=== PATIENT | female | born 1970 | race Two or more races ===

== ENCOUNTER 2016-09-07 09:27 | Emergency (ER) | payer MEDICAID ==
--- NOTE | 2016-09-07 10:25 | EDM.PDOC ---
ED HPI GENERAL MEDICAL PROBLEM - General Chief Complaint: Genitourinary Problem Stated Complaint: SICK FOR A MONTH Time Seen by Provider: 09/07/16 10:13 Source of Information: Reports: Patient History Limitations: Reports: No limitations - History of Present Illness INITIAL COMMENTS - FREE TEXT/NARRATIVE: 46-year-old female reports to the ED indicating that she's not been feeling well for about a month. Nonspecific symptoms of fatigue. More recently over the last few days particularly she's had fever chills nausea lightheadedness headache and dysuria. She's had dysuria symptoms off and on for about a week. Associated right flank pain radiating down to the right groin which is relieved by voiding. There is no known history of kidney stones. Associated nausea without vomiting. Mild constipation which improved after taking laxatives yesterday. Appetite has been poor. Feels very lightheaded and weak. Yesterday she had to cover herself up and mostly more her parka this morning because of chills. Onset: gradual Onset Date: 08/31/16 Duration: Day(s): Location: Reports: generalized Quality: Reports: Ache, Other (Weakness) Severity: moderate Improves with: Reports: None Worsens with: Reports: None Context: Denies: Activity, Exercise, Lifting, Sick contact, Trauma, Other Associated Symptoms: Reports: cough, diaphoresis, fever/chills, headaches, loss of appetite, malaise, nausea/vomiting, weakness (Nausea without vomiting generalized). 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 (see below) (No) right flank/side Pain Score (Numeric/FACES): 6 - Related Data Allergies Allergy/AdvReac Type Severity Reaction Status Date / Time adalimumab [From Humira] Allergy Redness Verified 09/07/16 09:49 lactose Allergy Anaphylactic Verified 09/07/16 09:49 Shock homeopathic drugs Allergy hayfever Uncoded 09/07/16 09:49 ivp dye Allergy Rash Uncoded 09/07/16 09:49 Home Meds: Home Meds Etanercept [Enbrel] 25 mg SQ WEEKLY 09/07/16 [History] Levofloxacin [Levaquin] 500 mg PO Q24H #9 tablet 09/07/16 [Rx] Multivitamin [Multivitamins] 1 each PO DAILY 09/07/16 [History] Ranitidine HCl [Zantac] 150 mg PO DAILY 09/07/16 [History] Past Medical History - Past Health History Medical/Surgical History: Denies Medical/Surgical History HEENT History: Reports: Sinusitis Gastrointestinal History: Reports: GERD 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 History: Reports: 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 Musculoskeletal History: Reports: RA Neurological History: Reports: Seizure Psychiatric History: Reports: Depression Endocrine/Metabolic History: Reports: Other (see below) Other Endocrine/Metabolic History: 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 Immunologic History: Reports: Immunosuppression Other Immunologic History: enbrel use - Past Surgical History GI Surgical History: Reports: Cholecystectomy Female Surgical History: Reports: Other (see below) Other Female Surgeries/Procedures: UTI Social & Family History - Family History Family Medical History: Noncontributory - Tobacco Use Smoking Status *Q: Never Smoker Second Hand Smoke Exposure: No - Caffeine Use Caffeine Use: Reports: Tea - Alcohol Use Days Per Week of Alcohol Use: 0 - Recreational Drug Use Recreational Drug Use: No - Living Situation & Occupation Living situation: Reports: , with family (Son) Occupation: unemployed ED ROS GENERAL - Review of Systems Review Of Systems: See Below Constitutional: Reports: fever, chills, malaise, weakness, fatigue, decreased appetite. Denies: weight loss HEENT: Reports: Sinus problem Respiratory: Reports: Cough. Denies: Shortness of Breath (Chronic postnasal drip.), Wheezing, Pleuritic Chest Pain, Sputum, Hemoptysis, Other Cardiovascular: Reports: Lightheadedness. Denies: Chest pain, Blood pressure problem, Claudication, Dyspnea on exertion, Edema, Orthopnea, Palpitations, PND , Syncope, Other Endocrine: Reports: fatigue GI/Abdominal: Reports: Constipation, Nausea. Denies: Vomiting : Reports: dysuria, flank pain, frequency. Denies: incontinence, irregular menses, urgency Skin: Reports: no symptoms Neurological: Reports: No Symptoms Psychiatric: Reports: No symptoms Hematologic/Lymphatic: Reports: no symptoms Immunologic: Reports: no symptoms ED EXAM, GENERAL - Physical Exam Exam: See Below Exam Limited By: No limitations General Appearance: alert, WD/WN, no apparent distress, other (Afebrile time of initial exam.) Eye Exam: bilateral eye: normal inspection Ears: normal TMs Throat/Mouth: Normal inspection, Normal lips, Normal oropharynx Head: atraumatic, normocephalic Neck: normal inspection, supple, non-tender, full range of motion. No: lymphadenopathy (L), lymphadenopathy (R) Respiratory/Chest: no respiratory distress, lungs clear, normal breath sounds, no accessory muscle use Cardiovascular: normal peripheral pulses, regular rate, rhythm, no edema, no murmur Peripheral Pulses: 2+: radial (R), femoral (L), posterior tibial (L), posterior tibial (R), dorsalis pedis (L), dorsalis pedis (R) GI/Abdominal: normal bowel sounds, soft, non tender, no organomegaly, no distention Back Exam: full range of motion, CVA tenderness (R). No: CVA tenderness (L) ( Moderate) Extremities: normal inspection, normal range of motion, non-tender, no pedal edema, normal capillary refill Neurological: alert, oriented, CN II-XII intact, normal cognition, normal gait Psychiatric: normal affect, normal mood Skin Exam: Warm, Dry, Intact, Normal color, No rash Course - Vital Signs Last Recorded V/S: Last Vital Signs Temp 36.4 C 09/07/16 12:22 Pulse 79 09/07/16 12:22 Resp 18 09/07/16 12:22 BP 122/74 09/07/16 12:22 Pulse Ox 97 09/07/16 12:22 Orthostatic Blood Pressure [ 111/85 Standing] Orthostatic Blood Pressure [ 139/107 Sitting] Orthostatic Blood Pressure [ 122/79 Supine] - Orders/Labs/Meds Orders: Active Orders 24 hr Category Date Time Status CULTURE BLOOD [BC] Stat Lab 09/07/16 11:02 Received CULTURE BLOOD [BC] Stat Lab 09/07/16 11:02 Received CULTURE URINE [RM] Stat Lab 09/07/16 10:00 Received Blood Culture x2 Reflex Set [OM.PC] Stat Oth 09/07/16 10:27 Ordered Labs: Laboratory Tests 09/07/16 09/07/16 09/07/16 Range/Units 10:05 11:02 11:02 WBC 7.10 (3.98-10.04) K/mm3 RBC 4.55 (3.98-5.22) M/mm3 Hgb 13.0 (11.2-15.7) gm/L Hct 39.5 (34.1-44.9) % MCV 86.8 (79.4-94.8) fl MCH 28.6 (25.6-32.2) pg MCHC 32.9 (32.2-35.5) g/dl RDW Std Deviation 48.2 H (36.4-46.3) fL Plt Count 239 (182-369) K/mm3 MPV 9.7 (9.4-12.3) fl Neutrophils % (Manual) 75 H (40-60) % Band Neutrophils % 11 H (0-10) % Lymphocytes % (Manual) 7 L (20-40) % Atypical Lymphs % 0 % Monocytes % (Manual) 5 (2-10) % Eosinophils % (Manual) 2 (0.7-5.8) % Basophils % (Manual) 0 L (0.1-1.2) Platelet Estimate Adequate RBC Morph Comment Normal Sodium 140 (136-145) mEq/L Potassium 3.7 (3.5-5.1) mEq/L Chloride 107 (98-107) mEq/L Carbon Dioxide 24 (21-32) mEq/L Anion Gap 12.7 (5-15) BUN 8 (7-18) mg/dL Creatinine 0.7 (0.55-1.02) mg/dL Est Cr Clr Drug Dosing TNP Estimated GFR (MDRD) > 60 (>60) mL/min BUN/Creatinine Ratio 11.4 L (14-18) Glucose 162 H (74-106) mg/dL Calcium 8.3 L (8.5-10.1) mg/dL Total Bilirubin 0.6 (0.2-1.0) mg/dL AST 15 (15-37) U/L ALT 20 (14-59) U/L Alkaline Phosphatase 70 (46-116) U/L C-Reactive Protein 3.4 H* (<1.0) mg/dL Total Protein 6.9 (6.4-8.2) g/dl Albumin 2.9 L (3.4-5.0) g/dl Globulin 4.0 gm/dL Albumin/Globulin Ratio 0.7 L (1-2) Lipase 94 (73-393) U/L Urine Color Yellow (Yellow) Urine Appearance Cloudy H (Clear) Urine pH 7.0 (5.0-8.0) Ur Specific Gautier 1.015 (1.005-1.030) Urine Protein Negative (Negative) Urine Glucose (UA) Negative (Negative) Urine Ketones Negative (Negative) Urine Occult Blood 2+ H (Negative) Urine Nitrite Negative (Negative) Urine Bilirubin Negative (Negative) Urine Urobilinogen 0.2 (0.2-1.0) Ur Leukocyte Esterase 1+ H (Negative) Urine RBC 5-10 H (0-5) /hpf Urine WBC 5-10 H (0-5) /hpf Ur Epithelial Cells 0-5 (0-5) /hpf Urine Bacteria Few (FEW) /hpf Urine Mucus Few (FEW) /hpf Meds: Medications Discontinued Medications Generic Name Dose Route Start Last Admin Trade Name Kavita PRN Reason Stop Dose Admin Acetaminophen 975 mg 09/07/16 11:59 09/07/16 12:10 Tylenol PO 09/07/16 12:00 975 mg NOW ONE Administration Dextrose/Sodium Chloride 1,000 mls @ 999 mls/hr 09/07/16 10:30 09/07/16 11:34 Dextrose 5%-Normal Saline IV 300 mls/hr ASDIRECTED [facility] Infusion Ceftriaxone Sodium 1 gm/ 100 mls @ 200 mls/hr 09/07/16 11:23 09/07/16 11:34 Sodium Chloride IV 09/07/16 11:52 200 mls/hr ONETIME ONE Administration Ketorolac Tromethamine 30 mg 09/07/16 10:45 09/07/16 10:44 Toradol IVPUSH 30 mg ONETIME [place] Administration Levofloxacin 500 mg 09/07/16 12:00 09/07/16 12:10 Levaquin PO 09/07/16 12:01 500 mg ONETIME ONE Administration - Radiology Interpretation Free Text/Narrative:: 46-year-old female presents the ED for evaluation of primarily right flank pain rating into the right groin with associated dysuria urgency and frequency. She reports she has not felt well for over a month however. She is mildly orthostatic. No evidence of upper respiratory tract infection right costovertebral angle tenderness present on exam. Benign abdomen exam. Plan urinalysis CT abdomen pelvis per protocol. IV D5 normal saline at open. She is mildly immunocompromised due to to using medications for rheumatoid arthritis I believe adalimumab. We'll give Toradol 30 mg IV for relief of right flank pain. - Re-Assessments/Exams Free Text/Narrative Re-Assessment/Exam: 09/07/16 11:21 CT of the abdomen has been completed. Bases of the lungs appear normal. Liver spleen and pancreas appear normal. Gallbladder is absent. 1-2 mm calculus noted within the parenchyma of the right kidney. Right kidney and ureter do appear mildly prominent with no calcification seen along the course of the ureter. This is suspicious for your tightness or pyelonephritis. Left kidney is within normal limits. 2 small cysts patient within the left ovary. There is no renal calculi. No perinephric stranding on the right side suggest pyelonephritis. There is increased stool throughout the entire colon. Small bowel appears otherwise normal adrenal glands appear normal. Only the urinalysis is back and shows 2+ blood cells and 1+ leukocyte esterase 5-10 rbc' s 5-10 WBCs per high-power field. Because of her symptoms of dysuria ,urine culture will be ordered. Will give her Rocephin 1 g IV. 09/07/16 11:58 labs are back. They reveal a total white count of 7.10 with a left shift of 75% neutrophils 11% bands. Hemoglobin is 13.0 hematocrit is 39.5 platelets 239,000. Chemistry shows a sodium of 140 and a potassium of 3.7. Anion gap is 12.7. Glucose 162. Lipase normal at 94 creatinine and liver function normal CRP is elevated at 3.4. Clinically the patient does have a right pyelonephritis. Plan will be to complete a liter of IV fluids and the Rocephin 1 g IV and see how she is feeling. Will also give her Levaquin 500 milligrams by mouth. 09/07/16 12:20: Has completed liter of IV fluids and Rocephin 1 g IV. She'll be discharged to home on Levaquin 500 milligrams once daily for another 9 days. Continue Motrin 600 mg every 6 hours needed for fever and back pain relief. Expect marked improvement over the next 48-72 hours if not she is to return to the ED. Departure - Departure Time of Disposition: 13:21 Disposition: Home, Self-Care 01 Condition: fair Clinical Impression: Pyelonephritis Prescriptions: Levofloxacin [Levaquin] 500 mg PO Q24H #9 tablet Instructions: Pyelonephritis, Adult, [id number] Referrals: Shanique Kaufman NP [Primary Care Provider] - Forms: ED Department Discharge Additional Instructions: Evaluation in the next today in regards to fever chills nausea and generalized weakness that developed over the last week. Symptoms of urinary tract infection off and on for a week. Development of right flank pain radiating down to the right groin since yesterday or the day before. CT scan reveals a solitary 1-2 mm millimeters stone within the right kidney tissue nothing in the ureter obstructing the flow of urine to the bladder. The ureter itself is mildly swollen compatible with an infection involving the ureter and kidney. White count was normal but there is a shift to the left indicating a bacterial infection has occurred. Diagnosis is right kidney infection. You're treated with a liter of IV fluids to provide rehydration. Also first dose of Menest patient antibiotic Rocephin was given intravenously and oral tablet Levaquin 500 mg by mouth. We'll need to take Levaquin 500 mg daily about noon every day for the next 9 days. Plenty of fluids such as Gatorade or Powerade and return to normal diet as able. Of note she may want to start MiraLax powder 17 g daily since his CT which reveals a large amount of stool throughout the colon compatible with constipation. Suggest Motrin 600 mg every 6 hours needed for fever and back pain relief. Followup with personal care provider or return to the ED if any further problems occur. You should otherwise expect marked improvement in about 48-72 hours time. - My Orders Last 24 Hours: My Active Orders 09/07/16 10:00 CULTURE URINE [RM] Stat 09/07/16 10:27 Blood Culture x2 Reflex Set [OM.PC] Stat 09/07/16 11:02 CULTURE BLOOD [BC] Stat CULTURE BLOOD [BC] Stat - Assessment/Plan Last 24 Hours: My Active Orders 09/07/16 10:00 CULTURE URINE [RM] Stat 09/07/16 10:27 Blood Culture x2 Reflex Set [OM.PC] Stat 09/07/16 11:02 CULTURE BLOOD [BC] Stat CULTURE BLOOD [BC] Stat
[2016-09-07] MEDS ORDERED: Dextrose 5%-0.9% NaCl 1,000 ML IV SCH (10:30)
[2016-09-07] MEDS ORDERED: Ketorolac 30 MG/ML SDV IVPUSH SCH (10:45)
[2016-09-07] MEDS ORDERED: cefTRIAXone 1 GM in Sodium Chloride 0.9% 100 ML IV ONE (11:23)
--- NOTE | 2016-09-07 11:41 | CT ---
CT abdomen and pelvis Technique: Multiple axial sections were obtained from above the dome of the diaphragm inferiorly through the pubic symphysis. Intravenous and oral contrast was not utilized. Study has been performed as a ureteral stone protocol. Findings: Small nonobstructing calculus is noted within the mid right kidney measuring around 1-2 mm. No larger calcifications are seen. Right kidney and right ureter are minimally prominent with no abnormal calcifications seen along the course of the ureters. Visualized lung bases shows nothing acute. Noncontrast appearance of the liver and spleen appear within normal limits. Adrenal glands show no nodule. Pancreas appears within normal limits. Surgical clips are seen from prior cholecystectomy. Aorta shows no aneurysmal dilatation. No retroperitoneal adenopathy is seen. Appendix appears within normal limits. 2 small cysts noted within the left ovary. Largest cyst measures approximately 2.9 cm. These are felt to be incidental. No pelvic mass or adenopathy is seen. No inflammatory change or free fluid is seen. Mild increased stool noted throughout the colon. Bone window settings were reviewed which appear within normal limits for the patient's age. Impression: 1. Several small nonobstructing calculi within the right kidney. 2. Slightly prominent collecting system within the right kidney as well as minimally prominent right ureter. No obstructing ureteral calculi are seen. The slightly prominent collecting system and ureter can be seen from UTI/pyelonephritis. 3. Other incidental findings as described above. Diagnostic code #3
[2016-09-07] MEDS ORDERED: Acetaminophen 325 MG Tab PO ONE (11:59)
[2016-09-07] MEDS ORDERED: Levofloxacin 250 MG Tab PO ONE (12:00)
[2016-09-07 12:23] VITALS: BP 122/74
== END 2016-09-07 12:30 | disposition home or self-care (01) ==
LOC: JD.ED 09:27
DX: N12 Tubulo-interstitial nephritis, not specified as acute or chronic (principal); K21.9 Gastro-esophageal reflux disease without esophagitis; F32.9 Major depressive disorder, single episode, unspecified; Z90.49 Acquired absence of other specified parts of digestive tract; Z79.899 Other long term (current) drug therapy; Z88.8 Allergy status to other drugs, medicaments and biological substances; Z91.041 Radiographic dye allergy status
CPT/HCPCS: 36415; 74176; 80053; 81001; 83690; 85025; 86140; 87040; 87086; 96361; 96365; 96375; 99284; A9270; J0696; J1885; J7030; J7042

== ENCOUNTER 2016-09-24 16:16 | Emergency (ER) | payer MEDICAID ==
[2016-09-24 16:40] VITALS: BP 133/96
[2016-09-24] MEDS ORDERED: HYDROmorphone 0.5 MG/0.5 ML Syringe IVPUSH ONE (17:10)
[2016-09-24] MEDS ORDERED: Sodium Chloride 0.9% 1,000 ML IV ONE (17:10)
[2016-09-24] MEDS ORDERED: Ketorolac 30 MG/ML SDV IVPUSH ONE (17:10)
--- NOTE | 2016-09-24 17:27 | EDM.PDOC ---
ED HPI GENERAL MEDICAL PROBLEM - General Chief Complaint: Abdominal Pain Stated Complaint: Flank pain Time Seen by Provider: 09/24/16 17:00 Source of Information: Reports: Patient, RN Notes Reviewed History Limitations: Reports: No Limitations - History of Present Illness INITIAL COMMENTS - FREE TEXT/NARRATIVE: 46 year old female presents to the ED with complaints of right flank pain, dysuria, frequency, fatigue, and chills. She says she has not felt well for quite some time. She says she was diagnosed with a kidney stone earlier this month by Dr. Diaz. She is asking "for help passing the stone." She says the pain became worse after intercourse. She is not on any forms of control. She still has periods which she says are quite uncomfortable for her. She reports a history of endometriosis. She saw her PCP Barb Kaufman in the clinic and was prescribed Flomax which she says isn't helping. She was also prescribed Percocet but took her last two percocet today. She was also diagnosed with constipation at her last visit. She says she followed her discharge instructions and is now having regular, daily bowel movements. Reports nausea but no vomiting. She reports a syncopal episode today and that she hasn't been drinking much fluids today. She also has a history of rheumatoid arthritis and is on immunologic therapy. Right Flank Pain Score (Numeric/FACES): 10 - Related Data Allergies Allergy/AdvReac Type Severity Reaction Status Date / Time adalimumab [From Humira] Allergy Redness Verified 09/07/16 09:49 lactose Allergy Anaphylactic Verified 09/07/16 09:49 Shock homeopathic drugs Allergy hayfever Uncoded 09/07/16 09:49 ivp dye Allergy Rash Uncoded 09/07/16 09:49 Home Meds: Home Meds Etanercept [Enbrel] 25 mg SQ WEEKLY 09/07/16 [History] Multivitamin [Multivitamins] 1 each PO DAILY 09/07/16 [History] Ranitidine HCl [Zantac] 150 mg PO DAILY 09/07/16 [History] Past Medical History - Past Health History Medical/Surgical History: Denies Medical/Surgical History HEENT History: Reports: Sinusitis Gastrointestinal History: Reports: GERD Genitourinary History: Reports: Other (See Below) Other Genitourinary History: kidney stones 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 Musculoskeletal History: Reports: RA Neurological History: Reports: Seizure Psychiatric History: Reports: Depression Endocrine/Metabolic History: Reports: Other (See Below) Other Endocrine/Metabolic History: 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 Immunologic History: Reports: Immunosuppression Other Immunologic History: enbrel use - Past Surgical History GI Surgical History: Reports: Cholecystectomy Social & Family History - Family History Family Medical History: Noncontributory - Tobacco Use Smoking Status *Q: Never Smoker Second Hand Smoke Exposure: No - Caffeine Use Caffeine Use: Reports: None - Alcohol Use Days Per Week of Alcohol Use: 0 - Recreational Drug Use Recreational Drug Use: No - Living Situation & Occupation Living situation: Reports: , with Family Occupation: Unemployed ED ROS GENERAL - Review of Systems Review Of Systems: See Below Constitutional: Reports: Chills, Fatigue Respiratory: Reports: No Symptoms. Denies: Shortness of Breath Cardiovascular: Reports: No Symptoms. Denies: Chest Pain GI/Abdominal: Reports: Nausea. Denies: Abdominal Pain, Constipation, Vomiting : Reports: Dysuria, Flank Pain, Frequency ED EXAM, RENAL/ - Physical Exam Exam: See Below Exam Limited By: No Limitations General Appearance: Alert, WD/WN, No Apparent Distress Respiratory/Chest: No Respiratory Distress, Lungs Clear, Normal Breath Sounds Cardiovascular: Regular Rate, Rhythm GI/Abdominal: Normal Bowel Sounds, Soft, Non-Tender, No Distention. No: Guarding, Rigid, Rebound Back Exam: Normal Inspection, Full Range of Motion, CVA Tenderness (R). No: CVA Tenderness (L) Neurological: Alert, Normal Cognition Skin Exam: Warm, Dry, Intact Course - Vital Signs Last Recorded V/S: Last Vital Signs Temp 97.6 F 09/24/16 16:32 Pulse 80 09/24/16 16:32 Resp 20 09/24/16 16:32 BP 133/96 H 09/24/16 16:32 Pulse Ox 98 09/24/16 16:32 Orthostatic Blood Pressure [ 144/92 Standing] Orthostatic Blood Pressure [ 138/96 Sitting] Orthostatic Blood Pressure [ 129/90 Supine] - Orders/Labs/Meds Orders: Active Orders 24 hr Category Date Time Status Orthostatic Vital Signs [RC] ASDIRECTED Care 09/24/16 17:10 Active Labs: Laboratory Tests 09/24/16 09/24/16 09/24/16 Range/Units 16:40 16:40 17:12 WBC 4.23 (3.98-10.04) K/mm3 RBC 5.12 (3.98-5.22) M/mm3 Hgb 14.8 (11.2-15.7) gm/L Hct 44.3 (34.1-44.9) % MCV 86.5 (79.4-94.8) fl MCH 28.9 (25.6-32.2) pg MCHC 33.4 (32.2-35.5) g/dl RDW Std Deviation 46.1 (36.4-46.3) fL Plt Count 269 (182-369) K/mm3 MPV 9.9 (9.4-12.3) fl Neutrophils % (Manual) 68 H (40-60) % Band Neutrophils % 0 (0-10) % Lymphocytes % (Manual) 18 L (20-40) % Atypical Lymphs % 2 % Monocytes % (Manual) 10 (2-10) % Eosinophils % (Manual) 1 (0.7-5.8) % Basophils % (Manual) 1 (0.1-1.2) Platelet Estimate Adequate Plt Morphology Comment Normal Poikilocytosis 1+ slight Anisocytosis 1+ slight Microcytosis 1+ slight Macrocytosis 1+ slight Ovalocytes 1+ slight RBC Morph Comment Abnormal Sodium 141 (136-145) mEq/L Potassium 4.0 (3.5-5.1) mEq/L Chloride 106 (98-107) mEq/L Carbon Dioxide 27 (21-32) mEq/L Anion Gap 12.0 (5-15) BUN 12 (7-18) mg/dL Creatinine 0.8 (0.55-1.02) mg/dL Est Cr Clr Drug Dosing TNP Estimated GFR (MDRD) > 60 (>60) mL/min BUN/Creatinine Ratio 15.0 (14-18) Glucose 114 H (74-106) mg/dL Calcium 9.3 (8.5-10.1) mg/dL Total Bilirubin 0.4 (0.2-1.0) mg/dL AST 16 (15-37) U/L ALT 21 (14-59) U/L Alkaline Phosphatase 93 (46-116) U/L Total Protein 8.1 (6.4-8.2) g/dl Albumin 3.4 (3.4-5.0) g/dl Globulin 4.7 gm/dL Albumin/Globulin Ratio 0.7 L (1-2) Urine Color (Yellow) Urine Appearance (Clear) Urine pH (5.0-8.0) Ur Specific [place] (1.005-1.030) Urine Protein (Negative) Urine Glucose (UA) (Negative) Urine Ketones (Negative) Urine Occult Blood (Negative) Urine Nitrite (Negative) Urine Bilirubin (Negative) Urine Urobilinogen (0.2-1.0) Ur Leukocyte Esterase (Negative) Urine RBC (0-5) /hpf Urine WBC (0-5) /hpf Ur Epithelial Cells (0-5) /hpf Amorphous Sediment (NOT SEEN) /hpf Urine Bacteria (FEW) /hpf Urine Mucus (FEW) /hpf Urine HCG, Qual Negative (NEGATIVE) 09/24/16 Range/Units 17:12 WBC (3.98-10.04) K/mm3 RBC (3.98-5.22) M/mm3 Hgb (11.2-15.7) gm/L Hct (34.1-44.9) % MCV (79.4-94.8) fl MCH (25.6-32.2) pg MCHC (32.2-35.5) g/dl RDW Std Deviation (36.4-46.3) fL Plt Count (182-369) K/mm3 MPV (9.4-12.3) fl Neutrophils % (Manual) (40-60) % Band Neutrophils % (0-10) % Lymphocytes % (Manual) (20-40) % Atypical Lymphs % % Monocytes % (Manual) (2-10) % Eosinophils % (Manual) (0.7-5.8) % Basophils % (Manual) (0.1-1.2) Platelet Estimate Plt Morphology Comment Poikilocytosis Anisocytosis Microcytosis Macrocytosis Ovalocytes RBC Morph Comment Sodium (136-145) mEq/L Potassium (3.5-5.1) mEq/L Chloride (98-107) mEq/L Carbon Dioxide (21-32) mEq/L Anion Gap (5-15) BUN (7-18) mg/dL Creatinine (0.55-1.02) mg/dL Est Cr Clr Drug Dosing Estimated GFR (MDRD) (>60) mL/min BUN/Creatinine Ratio (14-18) Glucose (74-106) mg/dL Calcium (8.5-10.1) mg/dL Total Bilirubin (0.2-1.0) mg/dL AST (15-37) U/L ALT (14-59) U/L Alkaline Phosphatase (46-116) U/L Total Protein (6.4-8.2) g/dl Albumin (3.4-5.0) g/dl Globulin gm/dL Albumin/Globulin Ratio (1-2) Urine Color Yellow (Yellow) Urine Appearance Slt cloudy H (Clear) Urine pH 7.0 (5.0-8.0) Ur Specific [place] 1.020 (1.005-1.030) Urine Protein Negative (Negative) Urine Glucose (UA) Negative (Negative) Urine Ketones Negative (Negative) Urine Occult Blood Negative (Negative) Urine Nitrite Negative (Negative) Urine Bilirubin Negative (Negative) Urine Urobilinogen 0.2 (0.2-1.0) Ur Leukocyte Esterase Negative (Negative) Urine RBC 0-5 (0-5) /hpf Urine WBC 0-5 (0-5) /hpf Ur Epithelial Cells 0-5 (0-5) /hpf Amorphous Sediment Many H (NOT SEEN) /hpf Urine Bacteria Few (FEW) /hpf Urine Mucus Many H (FEW) /hpf Urine HCG, Qual (NEGATIVE) Meds: Medications Discontinued Medications Generic Name Dose Route Start Last Admin Trade Name Freq PRN Reason Stop Dose Admin Hydromorphone HCl 0.5 mg 09/24/16 17:10 09/24/16 17:23 Dilaudid IVPUSH 09/24/16 17:11 0.5 mg ONETIME ONE Administration Sodium Chloride 1,000 mls @ 999 mls/hr 09/24/16 17:10 09/24/16 17:22 Normal Saline IV 09/24/16 18:10 999 mls/hr ONETIME ONE Administration Ketorolac Tromethamine 30 mg 09/24/16 17:10 09/24/16 17:23 Toradol IVPUSH 09/24/16 17:11 30 mg ONETIME ONE Administration Magnesium Citrate 300 ml 09/24/16 19:20 09/24/16 19:30 Citrate Of Magnesia PO 09/24/16 19:21 296 ml ONETIME ONE Administration - Re-Assessments/Exams Free Text/Narrative Re-Assessment/Exam: Reviewed chart fromher last ED visit on 09/07/16. She was diagnosed with pyelonephritis. She had only non-obstructing stones on CT. Her urine culture came back indicating contamination. Will collect quick cath UA today to avoid repeat contamination. She took her prescription of Levaquin as prescribed. She was prescribed Flomax 0.4mg PO daily by her PCP for kidney stones. This likely explains the patient's lightheadedness. CBC, CMP, and UA were normal. Repeat CT with renal stone protocol was negative. No hydronephrosis or stone with the ureter. Her appendix was visualized and is reportedly normal. She has a large amount of stool throughout her colon. This explains her colicky type pain. On history she reports daily bowel movements. She is likely still constipated due to the pain medication. Will give her 1 bottle of magnesium citrate and have her continue Miralax BID. Departure - Departure Time of Disposition: 19:41 Disposition: Home, Self-Care 01 Condition: good Clinical Impression: Constipation Qualifiers: Constipation type: unspecified constipation type Qualified Code(s): K59.00 - Constipation, unspecified - Discharge Information Referrals: Shanique Kaufman NP [Primary Care Provider] - Forms: ED Department Discharge Additional Instructions: Miralax 1 capful twice a day until bowels are regular Then once daily there after Increase fiber in your diet with fruits, vegetables and whole grains Stop the tamsulosin, this is not needed since you are not passing a kidney stone Drink at least 80 oz of water per day Follow-up with Barb Kaufman NP next week for recheck - My Orders Last 24 Hours: My Active Orders 09/24/16 17:10 Orthostatic Vital Signs [RC] ASDIRECTED - Assessment/Plan Last 24 Hours: My Active Orders 09/24/16 17:10 Orthostatic Vital Signs [RC] ASDIRECTED
--- NOTE | 2016-09-24 19:07 | CT ---
CT abdomen and pelvis Technique: Multiple axial sections were obtained from above the dome of the diaphragm inferiorly through the pubic symphysis. Intravenous and oral contrast not utilized. Study has been performed as a CT ureteral stone protocol. Comparison: Previous CT exam of 09/07/16. Findings: Minimal nonobstructing stone measuring about 1-1.5 mm is seen within the mid to inferior right kidney. Several other even smaller calcifications are seen within the lower right kidney. Left kidney shows minimal calcification inferiorly. No ureteral dilatation is seen. No abnormal calcifications are seen along the course of the ureters. Visualized lung bases shows nothing acute. Noncontrast appearance of the liver and spleen appear within normal limits. Surgical clips are noted from prior cholecystectomy. Pancreas appears within normal limits. Aorta shows no aneurysmal dilatation. Appendix is seen which is normal. Small fat-containing umbilical hernia is seen. No pelvic mass or adenopathy is seen. No inflammatory change or free fluid is seen. Mild increased stool is noted throughout the colon. Bone window settings were reviewed which appear within normal limits for the patient's age. Impression: 1. Slight increased stool within the colon. 2. Several nonobstructing small calculi noted within both kidneys. No ureteral calcifications or ureteral dilatation is seen. 3. Other incidental findings. Diagnostic code #2
[2016-09-24] MEDS ORDERED: Magnesium Citrate Solution 296 ML Bottle PO ONE (19:20)
== END 2016-09-24 19:50 | disposition home or self-care (01) ==
LOC: JD.ED 16:16
DX: K59.00 Constipation, unspecified (principal); K21.9 Gastro-esophageal reflux disease without esophagitis; Z79.899 Other long term (current) drug therapy; Z91.041 Radiographic dye allergy status; Z90.49 Acquired absence of other specified parts of digestive tract
CPT/HCPCS: 36415; 74176; 80053; 81001; 81025; 85025; 96361; 96374; 96375; 99284; A9270; J1170; J1885; J7040; P9612

== ENCOUNTER 2017-01-10 09:59 | Emergency (ER) | payer MEDICAID ==
[2017-01-10] MEDS ORDERED: Sodium Chloride 0.9% 10 ML Syringe FLUSH PRN (10:52)
[2017-01-10] MEDS ORDERED: Sodium Chloride 0.9% 1,000 ML IV ONE (10:52)
--- NOTE | 2017-01-10 11:03 | EDM.PDOC ---
ED HPI GENERAL MEDICAL PROBLEM - General Chief Complaint: Abdominal Pain Stated Complaint: RECTAL BLEEDING FOR 4 DAYS Time Seen by Provider: 01/10/17 10:53 Source of Information: Reports: Patient History Limitations: Reports: No Limitations - History of Present Illness INITIAL COMMENTS - FREE TEXT/NARRATIVE: 46-year-old female presents for evaluation treatment of abdominal pain and rectal bleeding. Patient reports she has been experiencing rectal bleeding for the last 4 days. She has a history of chronic colitis. Not on any medications for this but is being managed with diet. She reports that she know she cannot eat jalapenos and states that she had some jalapenos this week in which she attributes to her current flareup. initally thought this was vaginal bleeding but states that her menstrual cycle ended on Sunday. She reports bright red blood per rectum. States that she has having to change her pads frequently and saturating pads due to the bleeding. She reports associated symptoms of chills, nausea and weakness. Reports abdominal discomfort greatest on the right flank but is located throughout her entire abdomen. She describes as a cramping sharp pain. Reports that she has had some diarrhea but she is also currently on Augmentin for urinary tract infection. This was started on of last week. She states that she has not had any bowel movements today. No fevers, vomiting, lightheadedness or dizziness. Past medical history of chronic colitis and hemorrhoids. Currently sees Dr. Aguirre [facility]. Has not seen him in the last 3 years. Was previously seen a GI specialist in [place]. She has a family history of Crohn's disease. Reports that her last colonoscopy was about 1 year ago and was "clear ". Has a past medical history of endometriosis. 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 Primary care provider is Barb Kaufman. Right Abdominal Pain Score (Numeric/FACES): 10 - Related Data Allergies Allergy/AdvReac Type Severity Reaction Status Date / Time Iodinated Contrast- Oral and Allergy Mild Rash Verified 09/25/16 05:51 IV Dye [Iodinated Contrast Media - Oral and] adalimumab [From Humira] Allergy Redness Verified 09/07/16 09:49 lactose Allergy Anaphylactic Verified 09/07/16 09:49 Shock homeopathic drugs Allergy hayfever Uncoded 09/07/16 09:49 Home Meds: Home Meds Etanercept [Enbrel] 25 mg SQ WEEKLY 05/04/17 [History] Multivitamin [Multivitamins] 1 each PO DAILY 09/07/16 [History] Ranitidine HCl [Zantac] 150 mg PO DAILY 09/07/16 [History] Acetaminophen/oxyCODONE [Percocet 325-5 MG] 1 tab PO Q6H PRN #12 tablet [Rx] Past Medical History - Past Health History Medical/Surgical History: Denies Medical/Surgical History HEENT History: Reports: Sinusitis Gastrointestinal History: Reports: GERD, Other (See Below) Other Gastrointestinal History: colitis Genitourinary History: Reports: Other (See Below) Other Genitourinary History: kidney stones [employer]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 Musculoskeletal History: Reports: RA Neurological History: Reports: Seizure Psychiatric History: Reports: Depression Endocrine/Metabolic History: Reports: Other (See Below) Other Endocrine/Metabolic History: 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 Immunologic History: Reports: Immunosuppression Other Immunologic History: enbrel use - Past Surgical History GI Surgical History: Reports: Cholecystectomy Social & Family History - Family History Family Medical History: Noncontributory - Tobacco Use Smoking Status *Q: Never Smoker Second Hand Smoke Exposure: No - Caffeine Use Caffeine Use: Reports: Coffee - Alcohol Use Days Per Week of Alcohol Use: 0 - Recreational Drug Use Recreational Drug Use: No - Living Situation & Occupation Living situation: Reports: , with Family Occupation: Unemployed ED ROS GENERAL - Review of Systems Review Of Systems: See Below Constitutional: Reports: Chills, Fatigue. Denies: Fever, Decreased Appetite Cardiovascular: Denies: Lightheadedness GI/Abdominal: Reports: Abdominal Pain, Hematochezia, Nausea. Denies: Diarrhea ( yesterday, currently on augmentin; no bowel movements today), Vomiting : Reports: Other (Dx with a UTI on ) Neurological: Denies: Dizziness ED EXAM, GI/ABD - Physical Exam Exam: See Below Exam Limited By: No Limitations General Appearance: Alert, WD/WN, No Apparent Distress Ears: Normal External Exam Nose: Normal Inspection Throat/Mouth: Normal Inspection, Normal Voice, No Airway Compromise Respiratory/Chest: No Respiratory Distress, Lungs Clear, Normal Breath Sounds Cardiovascular: Normal Peripheral Pulses, Regular Rate, Rhythm, No Murmur GI/Abdominal Exam: Normal Bowel Sounds, Soft, Tender (RUQ). No: Distended, Rebound (Female) Exam: Normal External Exam, Vaginal Bleeding Rectal (Female) Exam: Normal Exam, Heme + Stool (likely from the vaginal bleeding ). No: Hemorrhoids Neurological: Alert, Oriented, Normal Cognition Psychiatric: Normal Affect, Normal Mood Skin Exam: Warm, Dry, Normal Color Course - Vital Signs Last Recorded V/S: Last Vital Signs Temp 36.4 C 01/10/17 10:05 Pulse 74 01/10/17 12:50 Resp 18 01/10/17 12:50 BP 156/86 H 01/10/17 12:50 Pulse Ox 100 01/10/17 12:50 - Orders/Labs/Meds Labs: Laboratory Tests 01/10/17 01/10/17 01/10/17 Range/Units 11:00 11:00 11:00 WBC 6.28 (3.98-10.04) K/mm3 RBC 4.53 (3.98-5.22) M/mm3 Hgb 13.1 (11.2-15.7) gm/L Hct 39.3 (34.1-44.9) % MCV 86.8 (79.4-94.8) fl MCH 28.9 (25.6-32.2) pg MCHC 33.3 (32.2-35.5) g/dl RDW Std Deviation 50.4 H (36.4-46.3) fL Plt Count 259 (182-369) K/mm3 MPV 9.3 L (9.4-12.3) fl Neutrophils % (Manual) 71 H (40-60) % Band Neutrophils % 1 (0-10) % Lymphocytes % (Manual) 21 (20-40) % Atypical Lymphs % 0 % Monocytes % (Manual) 7 (2-10) % Eosinophils % (Manual) 0 L (0.7-5.8) % Basophils % (Manual) 0 L (0.1-1.2) Platelet Estimate Adequate RBC Morph Comment Normal Sodium 142 (136-145) mEq/L Potassium 3.5 (3.5-5.1) mEq/L Chloride 109 H (98-107) mEq/L Carbon Dioxide 24 (21-32) mEq/L Anion Gap 12.5 (5-15) BUN 12 (7-18) mg/dL Creatinine 0.8 (0.55-1.02) mg/dL Est Cr Clr Drug Dosing TNP Estimated GFR (MDRD) > 60 (>60) mL/min BUN/Creatinine Ratio 15.0 (14-18) Glucose 101 (74-106) mg/dL Calcium 8.8 (8.5-10.1) mg/dL Total Bilirubin 0.5 (0.2-1.0) mg/dL AST 14 L (15-37) U/L ALT 18 (14-59) U/L Alkaline Phosphatase 62 (46-116) U/L C-Reactive Protein 2.2 H* (<1.0) mg/dL Total Protein 7.1 (6.4-8.2) g/dl Albumin 3.2 L (3.4-5.0) g/dl Globulin 3.9 gm/dL Albumin/Globulin Ratio 0.8 L (1-2) Lipase 126 (73-393) U/L Urine Color (Yellow) Urine Appearance (Clear) Urine pH (5.0-8.0) Ur Specific [place] (1.005-1.030) Urine Protein (Negative) Urine Glucose (UA) (Negative) Urine Ketones (Negative) Urine Occult Blood (Negative) Urine Nitrite (Negative) Urine Bilirubin (Negative) Urine Urobilinogen (0.2-1.0) Ur Leukocyte Esterase (Negative) 01/10/17 Range/Units 11:35 WBC (3.98-10.04) K/mm3 RBC (3.98-5.22) M/mm3 Hgb (11.2-15.7) gm/L Hct (34.1-44.9) % MCV (79.4-94.8) fl MCH (25.6-32.2) pg MCHC (32.2-35.5) g/dl RDW Std Deviation (36.4-46.3) fL Plt Count (182-369) K/mm3 MPV (9.4-12.3) fl Neutrophils % (Manual) (40-60) % Band Neutrophils % (0-10) % Lymphocytes % (Manual) (20-40) % Atypical Lymphs % % Monocytes % (Manual) (2-10) % Eosinophils % (Manual) (0.7-5.8) % Basophils % (Manual) (0.1-1.2) Platelet Estimate RBC Morph Comment Sodium (136-145) mEq/L Potassium (3.5-5.1) mEq/L Chloride (98-107) mEq/L Carbon Dioxide (21-32) mEq/L Anion Gap (5-15) BUN (7-18) mg/dL Creatinine (0.55-1.02) mg/dL Est Cr Clr Drug Dosing Estimated GFR (MDRD) (>60) mL/min BUN/Creatinine Ratio (14-18) Glucose (74-106) mg/dL Calcium (8.5-10.1) mg/dL Total Bilirubin (0.2-1.0) mg/dL AST (15-37) U/L ALT (14-59) U/L Alkaline Phosphatase (46-116) U/L C-Reactive Protein (<1.0) mg/dL Total Protein (6.4-8.2) g/dl Albumin (3.4-5.0) g/dl Globulin gm/dL Albumin/Globulin Ratio (1-2) Lipase (73-393) U/L Urine Color Yellow (Yellow) Urine Appearance Clear (Clear) Urine pH 7.0 (5.0-8.0) Ur Specific [place] 1.015 (1.005-1.030) Urine Protein Negative (Negative) Urine Glucose (UA) Negative (Negative) Urine Ketones Negative (Negative) Urine Occult Blood 3+ H (Negative) Urine Nitrite Negative (Negative) Urine Bilirubin Negative (Negative) Urine Urobilinogen 0.2 (0.2-1.0) Ur Leukocyte Esterase Negative (Negative) Meds: Medications Discontinued Medications Generic Name Dose Route Start Last Admin Trade Name Kavita PRN Reason Stop Dose Admin Sodium Chloride 1,000 mls @ 999 mls/hr 01/10/17 10:52 01/10/17 11:10 Normal Saline IV 01/10/17 11:52 999 mls/hr ONETIME ONE Administration Ketorolac Tromethamine 30 mg 01/10/17 12:14 01/10/17 12:25 Toradol IVPUSH 01/10/17 12:15 30 mg ONETIME ONE Administration Ondansetron HCl 4 mg 01/10/17 12:14 01/10/17 12:23 Zofran IVPUSH 01/10/17 12:15 4 mg ONETIME ONE Administration Sodium Chloride 10 ml 01/10/17 10:52 01/10/17 11:00 Saline Flush FLUSH 10 ml ASDIRECTED PRN Administration Keep Vein Open - Re-Assessments/Exams Free Text/Narrative Re-Assessment/Exam: 01/10/17 12:20 I Reviewed the labs with the patient. Vaginal bleeding likely from endometrosis or menstrual cycle. Abdominal pain likely from endometrosis or colitis. I will have her follow up with [employer] for further discussion of the vaginal bleeding. Discharge instructions as documented. Departure - Departure Time of Disposition: 12:30 Disposition: Home, Self-Care 01 Clinical Impression: Vaginal bleeding, 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 - Discharge Information Prescriptions: Acetaminophen/oxyCODONE [Percocet 325-5 MG] 1 tab PO Q6H PRN #12 tablet PRN Reason: Pain Instructions: 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, Dysfunctional Uterine Bleeding Referrals: Shanique Kaufman NP [Primary Care Provider] - John Gorman MD [Physician] - Forms: ED Department Discharge Additional Instructions: [id number] Tylenol or Motrin as needed for pain relief. For pain not controlled by Tylenol or Motrin, you may take Percocet 1 tab every 4-6 hours as needed for severe pain. Do not drive or operate machinery within 12 hours of taking Percocet. Percocet can be habit-forming, I recommend you take as few of these as needed to control your pain. Follow up with your [employer] provider as soon as able to. If you are unable to see Dr. Gorman, recommend Dr. huang or Dr. Gerard. Please call [phone] to schedule with one of these providers. Please return to the ER if your symptoms change or worsen.
[2017-01-10] MEDS ORDERED: Ondansetron 4 MG/2 ML SDV IVPUSH ONE (12:14)
[2017-01-10] MEDS ORDERED: Ketorolac 30 MG/ML SDV IVPUSH ONE (12:14)
[2017-01-10 13:05] VITALS: BP 156/86
== END 2017-01-10 13:00 | disposition home or self-care (01) ==
LOC: JD.ED 09:59
DX: N93.9 Abnormal uterine and vaginal bleeding, unspecified (principal); N80.9 Endometriosis, unspecified; K21.9 Gastro-esophageal reflux disease without esophagitis; F32.9 Major depressive disorder, single episode, unspecified; Z90.49 Acquired absence of other specified parts of digestive tract; Z79.899 Other long term (current) drug therapy; Z88.8 Allergy status to other drugs, medicaments and biological substances; Z91.041 Radiographic dye allergy status
CPT/HCPCS: 36415; 80053; 81003; 83690; 85025; 86140; 96361; 96374; 96375; 99284; J1885; J2405; J7040; J7050

== ENCOUNTER 2017-03-09 14:25 | Emergency (ER) | payer MEDICAID ==
[2017-03-09 14:56] VITALS: BP 141/99
[2017-03-09] MEDS ORDERED: Ondansetron 4 MG Tab.DIS PO ONE (15:12)
[2017-03-09] MEDS ORDERED: Ketorolac 30 MG/ML SDV IM ONE (15:12)
--- NOTE | 2017-03-09 15:19 | EDM.PDOC ---
ED HPI GENERAL MEDICAL PROBLEM - General Chief Complaint: Respiratory Problem Stated Complaint: SORE THROAT AND LIGHT HEADED Time Seen by Provider: 03/09/17 15:00 Source of Information: Reports: Patient History Limitations: Reports: No Limitations - History of Present Illness INITIAL COMMENTS - FREE TEXT/NARRATIVE: 46 year old female presents for evaluation and treatment of a sore throat, dizziness, headache, productive cough and nausea. Patient reports that the symptoms first started about 5 days ago with a sore throat. She reports last night she had a significant headache and nausea. She tried some Excedrin and Benadryl. Reports that she is eating drinking okay. States that she has dizziness that improves when she rests. Reports that she has some postnasal drip. Reports that she is coughing up some phlegm. Denies any fevers, neck pain , vomiting or ear pain. Patient has a past medical history of Crohn's disease. She denies any recent diarrhea or any recent blood in her stool. 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 States that there have been cases of strep throat at work. Throat Pain Score (Numeric/FACES): 5 - Related Data Allergies Allergy/AdvReac Type Severity Reaction Status Date / Time Iodinated Contrast- Oral and Allergy Mild Rash Verified 03/09/17 14:56 IV Dye [Iodinated Contrast Media - Oral and] adalimumab [From Humira] Allergy Redness Verified 03/09/17 14:56 lactose Allergy Anaphylactic Verified 03/09/17 14:56 Shock homeopathic drugs Allergy hayfever Uncoded 03/09/17 14:56 Home Meds: Home Meds Etanercept [Enbrel] 25 mg SQ WEEKLY 09/07/16 [History] Multivitamin [Multivitamins] 1 each PO DAILY 09/07/16 [History] Ranitidine HCl [Zantac] 150 mg PO DAILY 09/07/16 [History] Doxycycline [Vibramycin] 100 mg PO Q12HR #20 cap 03/09/17 [Rx] Methotrexate 8 tab PO ASDIRECTED 03/09/17 [History] Past Medical History - Past Health History Medical/Surgical History: Denies Medical/Surgical History HEENT History: Reports: Sinusitis Gastrointestinal History: Reports: GERD, Other (See Below) Other Gastrointestinal History: colitis Genitourinary History: Reports: Other (See Below) Other Genitourinary History: kidney stones 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 Musculoskeletal History: Reports: RA Neurological History: Reports: Seizure Psychiatric History: Reports: Depression Endocrine/Metabolic History: Reports: Other (See Below) Other Endocrine/Metabolic History: 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 Immunologic History: Reports: Immunosuppression Other Immunologic History: enbrel use - Past Surgical History GI Surgical History: Reports: Cholecystectomy Social & Family History - Family History Family Medical History: Noncontributory - Tobacco Use Smoking Status *Q: Never Smoker Second Hand Smoke Exposure: No - Caffeine Use Caffeine Use: Reports: Other - Alcohol Use Days Per Week of Alcohol Use: 0 - Recreational Drug Use Recreational Drug Use: No - Living Situation & Occupation Living situation: Reports: , with Family Occupation: Unemployed ED ROS GENERAL - Review of Systems Review Of Systems: See Below Constitutional: Denies: Fever HEENT: Reports: Sinus Problem, Throat Pain. Denies: Ear Pain Respiratory: Reports: Cough, Sputum GI/Abdominal: Reports: Nausea. Denies: Diarrhea, Hematochezia, Melena, Vomiting Musculoskeletal: Denies: Neck Pain Neurological: Reports: Dizziness, Headache ED EXAM, GENERAL - Physical Exam Exam: See Below Exam Limited By: No Limitations General Appearance: Alert, WD/WN, No Apparent Distress Eye Exam: Bilateral Eye: Normal Inspection Ears: Normal External Exam, Normal Canal, Hearing Grossly Normal, Normal TMs Ear Exam: Bilateral Ear: TM normal Nose: Normal Inspection Throat/Mouth: Normal Inspection, Normal Lips, Normal Voice, No Airway Compromise Head: Sinus Tenderness Respiratory/Chest: No Respiratory Distress, Lungs Clear, Normal Breath Sounds Cardiovascular: Normal Peripheral Pulses, Regular Rate, Rhythm, No Murmur Neurological: Alert, Normal Cognition Psychiatric: Normal Affect, Normal Mood Skin Exam: Warm, Dry, Normal Color Course - Vital Signs Last Recorded V/S: Last Vital Signs Temp 36.7 C 03/09/17 14:54 Pulse 74 03/09/17 14:54 Resp 20 03/09/17 14:54 BP 141/99 H 03/09/17 14:54 Pulse Ox 100 03/09/17 14:54 Orthostatic Blood Pressure [ 160/103 Standing] Orthostatic Blood Pressure [ 155/106 Sitting] Orthostatic Blood Pressure [ 153/107 Supine] - Orders/Labs/Meds Orders: Active Orders 24 hr Category Date Time Status Orthostatic Vital Signs [RC] ASDIRECTED Care 03/09/17 15:12 Active Labs: Laboratory Tests 03/09/17 03/09/17 Range/Units 15:49 15:49 WBC 4.57 (3.98-10.04) K/mm3 RBC 4.73 (3.98-5.22) M/mm3 Hgb 14.2 (11.2-15.7) gm/L Hct 42.4 (34.1-44.9) % MCV 89.6 (79.4-94.8) fl MCH 30.0 (25.6-32.2) pg MCHC 33.5 (32.2-35.5) g/dl RDW Std Deviation 44.2 (36.4-46.3) fL Plt Count 269 (182-369) K/mm3 MPV 9.0 L (9.4-12.3) fl Neut % (Auto) 45.2 (34.0-71.1) % Lymph % (Auto) 34.8 (19.3-51.7) % [place] % (Auto) 17.9 H (4.7-12.5) % Eos % (Auto) 1.5 (0.7-5.8) Baso % (Auto) 0.4 (0.1-1.2) % Neut # (Auto) 2.06 (1.56-6.13) K/mm3 Lymph # (Auto) 1.59 (1.18-3.74) K/mm3 [place] # (Auto) 0.82 H (0.24-0.36) K/mm3 Eos # (Auto) 0.07 (0.04-0.36) K/mm3 Baso # (Auto) 0.02 (0.01-0.08) K/mm3 Manual Slide Review Abnormal smear Sodium 142 (136-145) mEq/L Potassium 3.7 (3.5-5.1) mEq/L Chloride 107 (98-107) mEq/L Carbon Dioxide 26 (21-32) mEq/L Anion Gap 12.7 (5-15) BUN 10 (7-18) mg/dL Creatinine 0.8 (0.55-1.02) mg/dL Est Cr Clr Drug Dosing 97.17 mL/min Estimated GFR (MDRD) > 60 (>60) mL/min BUN/Creatinine Ratio 12.5 L (14-18) Glucose 74 (74-106) mg/dL Calcium 9.1 (8.5-10.1) mg/dL Total Bilirubin 0.3 (0.2-1.0) mg/dL AST 20 (15-37) U/L ALT 23 (14-59) U/L Alkaline Phosphatase 70 (46-116) U/L Total Protein 7.2 (6.4-8.2) g/dl Albumin 3.2 L (3.4-5.0) g/dl Globulin 4.0 gm/dL Albumin/Globulin Ratio 0.8 L (1-2) Meds: Medications Discontinued Medications Generic Name Dose Route Start Last Admin Trade Name Freq PRN Reason Stop Dose Admin Ketorolac Tromethamine 30 mg 03/09/17 15:12 03/09/17 15:33 Toradol IM 03/09/17 15:13 30 mg ONETIME ONE Administration Ondansetron HCl 4 mg 03/09/17 15:12 03/09/17 15:33 Zofran Odt PO 03/09/17 15:13 4 mg ONETIME ONE Administration - Re-Assessments/Exams Free Text/Narrative Re-Assessment/Exam: 03/09/17 16:43 I reviewed the lab results with patient. Headache improved slightly but still present. Nausea improved. I feel she has a sinus infection causing her problems. Instructed to return if her chest symptoms change or worsen. Follow-up if her symptoms do not improve within 10 days. Discharge instructions as documented. Departure - Departure Time of Disposition: 16:43 Disposition: Home, Self-Care 01 Condition: Good Clinical Impression: Sinusitis Qualifiers: Sinusitis location: unspecified location Chronicity: acute Recurrence: not specified as recurrent Qualified Code(s): J01.90 - Acute sinusitis, unspecified - Discharge Information Prescriptions: Doxycycline [Vibramycin] 100 mg PO Q12HR #20 cap Instructions: Sinusitis, Adult, [id number] Referrals: Shanique Kaufman NP [Primary Care Provider] - Forms: ED Department Discharge, ED Return to Work/School Form Additional Instructions: Take the doxycycline as prescribed. 1 cap twice a day for 10 days. Take this medication with food. [id number] Tylenol or Motrin as needed for pain relief. Rest. Make sure drinking plenty of fluids. Follow up with your primary care provider if symptoms are not much better in 10 days. Please return to the ER if your symptoms change or worsen. - My Orders Last 24 Hours: My Active Orders 03/09/17 15:12 Orthostatic Vital Signs [RC] ASDIRECTED - Assessment/Plan Last 24 Hours: My Active Orders 03/09/17 15:12 Orthostatic Vital Signs [RC] ASDIRECTED
== END 2017-03-09 16:55 | disposition home or self-care (01) ==
LOC: JD.ED 14:25
DX: J01.90 Acute sinusitis, unspecified (principal); Z91.041 Radiographic dye allergy status; Z88.8 Allergy status to other drugs, medicaments and biological substances; Z79.899 Other long term (current) drug therapy
CPT/HCPCS: 36415; 80053; 85025; 96372; 99284; A9270; J1885; 99283

== ENCOUNTER 2017-04-27 10:22 | Day surgery (SDC) | payer MEDICAID ==
[~2017-04-27 10:22] MED LIST: Dexamethasone 4 MG/ML SDV ONE; HYDROmorphone 1 MG/ML Syringe ONE; Ketorolac 30 MG/ML SDV ONE; Lactated Ringers 0 ML ONE; Lidocaine 1% 0 ML ONE; Lidocaine 1%/Sod Bicarbonate in NS 8.4% 1 ML Syringe IV PRN; Midazolam 1 MG/ML 2 ML SDV ONE; Ondansetron 4 MG/2 ML SDV ONE; Propofol 200 MG/20 ML SDV ONE; Rocuronium 50 MG/5 ML Vial ONE; Scopolamine 1.5 MG Transdermal Patch TRDERM SCH; Sodium Chloride 0.9% 10 ML Syringe FLUSH PRN; ceFAZolin 1 GM Vial ONE; fentaNYL 250 MCG/5 ML SDV ONE
[2017-04-27] MEDS ORDERED: Bupivacaine 0.5% 30 ML SDV ONE (10:38)
[2017-04-27] MEDS: Lactated Ringers 1,000 ML IV SCH ×2 (10:50→14:10)
--- NOTE | 2017-04-27 11:30 | PCM.PREANE ---
Preanesthetic Assessment - Procedure Proposed Procedure: Laparoscopic 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ectomy - Anesthesia/Transfusion/Family Hx Anesthesia History: Prior Anesthesia Without Reaction (PONV) Family History of Anesthesia Reaction: No Transfusion History: No Prior Transfusion(s) - Review of Systems General: No Symptoms Pulmonary: No Symptoms Cardiovascular: No Symptoms Gastrointestinal: No Symptoms Neurological: Other (Rheumatoid arthritis ) Other: Reports: Easy Bruising - Physical Assessment NPO Status Date: 04/26/17 NPO Status Time: 22:00 O2 Sat by Pulse Oximetry: 98 Respiratory Rate: 16 Vital Signs: Last Vital Signs Temp 37.1 C 04/27/17 10:20 Pulse 70 04/27/17 10:20 Resp 16 04/27/17 10:20 BP 143/90 H 04/27/17 10:20 Pulse Ox 98 04/27/17 10:20 Height: 1.7 m Weight: 71.668 kg ASA Class: 2 Mental Status: Alert & Oriented x3 Airway Class: Mallampati = 2 Dentition: Reports: Normal Dentition Thyro-Mental Finger Breadths: 3 Mouth Opening Finger Breadths: 3 ROM/Head Extension: Full Lungs: Clear to Auscultation, Normal Respiratory Effort Cardiovascular: Regular Rate, Regular Rhythm - Lab Values: Laboratory Last Values WBC 3.78 K/mm3 (3.98-10.04) L 04/27/17 10:45 RBC 4.83 M/mm3 (3.98-5.22) 04/27/17 10:45 Hgb 13.7 gm/L (11.2-15.7) 04/27/17 10:45 Hct 41.5 % (34.1-44.9) 04/27/17 10:45 MCV 85.9 fl (79.4-94.8) 04/27/17 10:45 MCH 28.4 pg (25.6-32.2) 04/27/17 10:45 MCHC 33.0 g/dl (32.2-35.5) 04/27/17 10:45 RDW Std Deviation 44.3 fL (36.4-46.3) 04/27/17 10:45 Plt Count 287 K/mm3 (182-369) 04/27/17 10:45 MPV 9.3 fl (9.4-12.3) L 04/27/17 10:45 Neut % (Auto) 50.3 % (34.0-71.1) 04/27/17 10:45 Lymph % (Auto) 32.5 % (19.3-51.7) 04/27/17 10:45 [place] % (Auto) 14.6 % (4.7-12.5) H 04/27/17 10:45 Eos % (Auto) 1.6 (0.7-5.8) 04/27/17 10:45 Baso % (Auto) 0.5 % (0.1-1.2) 04/27/17 10:45 Neut # (Auto) 1.90 K/mm3 (1.56-6.13) 04/27/17 10:45 Lymph # (Auto) 1.23 K/mm3 (1.18-3.74) 04/27/17 10:45 [place] # (Auto) 0.55 K/mm3 (0.24-0.36) H 04/27/17 10:45 Eos # (Auto) 0.06 K/mm3 (0.04-0.36) 04/27/17 10:45 Baso # (Auto) 0.02 K/mm3 (0.01-0.08) 04/27/17 10:45 Manual Slide Review Normal smear 04/27/17 10:45 Urine HCG, Qual Negative (NEGATIVE) 04/27/17 10:28 - Allergies Allergies/Adverse Reactions: Allergies Allergy/AdvReac Type Severity Reaction Status Date / Time Iodinated Contrast- Oral and Allergy Mild Rash Verified 04/26/17 16:01 IV Dye [Iodinated Contrast Media - Oral and] adalimumab [From Humira] Allergy Redness Verified 04/26/17 16:01 lactose Allergy Anaphylactic Verified 04/26/17 16:01 Shock homeopathic drugs Allergy hayfever Uncoded 04/26/17 16:01 - Blood Blood Available: No Product(s) Available: None - Anesthesia Plan Pre-Op Medication Ordered: None - Acknowledgements Anesthesia Type Planned: General Anesthesia Pt an Appropriate Candidate for the Planned Anesthesia: Yes Alternatives and Risks of Anesthesia Discussed w Pt/Guardian: Yes Pt/Guardian Understands and Agrees with Anesthesia Plan: Yes PreAnesthesia Questionnaire - Past Health History Medical/Surgical History: Denies Medical/Surgical History HEENT History: Reports: Sinusitis, Other (See Below) Other HEENT History: left eye conjunctivitis, sinus infection, strep throat Cardiovascular History: Reports: None Respiratory History: Reports: None Gastrointestinal History: Reports: GERD, Other (See Below) Other Gastrointestinal History: colitis Genitourinary History: Reports: Renal Calculus, Other (See Below) Other Genitourinary History: dysuria 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, 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 (See 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) Other OB/BYN History: left 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, heavy menses Musculoskeletal History: Reports: Arthritis, RA Neurological History: Reports: Seizure Psychiatric History: Reports: Depression Endocrine/Metabolic History: Reports: None, Other (See Below) Other Endocrine/Metabolic History: 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 Hematologic History: Reports: None Immunologic History: Reports: Immunosuppression Other Immunologic History: enbrel use Oncologic (Cancer) History: Reports: None Dermatologic History: Reports: None - Past Surgical History Head Surgeries/Procedures: Reports: None Cardiovascular Surgical History: Reports: None Respiratory Surgical History: Reports: None GI Surgical History: Reports: Cholecystectomy Female Surgical History: Reports: Other (See Below) Other Female Surgeries/Procedures: UTI Endocrine Surgical History: Reports: None Musculoskeletal Surgical History: Reports: None Oncologic Surgical History: Reports: None Dermatological Surgical History: Reports: None - SUBSTANCE USE Smoking Status *Q: Never Smoker Second Hand Smoke Exposure: No Days Per Week of Alcohol Use: 0 Recreational Drug Use History: No - HOME MEDS Home Medications: Home Meds Etanercept [Enbrel] 25 mg SQ WEEKLY 09/07/16 [History] Multivitamin [Multivitamins] 1 each PO DAILY 09/07/16 [History] Ranitidine HCl [Zantac] 150 mg PO DAILY 09/07/16 [History] Methotrexate 8 tab PO ASDIRECTED 03/09/17 [History] Folic Acid 1 mg PO DAILY 04/26/17 [History] Gluc 2KCl/Chondr/Rajesh Hy/Hy Ac [Glucosamine & Chondroitin Cap] 1 cap PO DAILY [History] - CURRENT (IN HOUSE) MEDS Current Meds: Current Medications Lactated Ringer's (Ringers, Lactated) 1,000 mls @ 125 mls/hr IV ASDIRECTED [place] Stop: 04/27/17 18:00 Last Admin: 04/27/17 10:50 Dose: 125 mls/hr Lidocaine/Sodium Bicarbonate (Buffered Lidocaine 1% In Ns 8.4%) 0.25 ml IV ONETIME PRN PRN Reason: Prior to IV Start Stop: 04/27/17 18:00 Last Admin: 04/27/17 10:49 Dose: 0.25 ml Scopolamine (Transderm-Scop) 1.5 mg TRDERM ONETIME [place] Stop: 04/27/17 18:00 Sodium Chloride (Saline Flush) 10 ml FLUSH ASDIRECTED PRN PRN Reason: Keep Vein Open Stop: 04/27/17 18:00 Discontinued Medications Bupivacaine HCl (Marcaine 0.5%) Confirm Administered Dose 30 ml .ROUTE .STK-MED ONE Stop: 04/27/17 10:39 Cefazolin Sodium (Ancef) Confirm Administered Dose 2 gm .ROUTE .STK-MED ONE Stop: 04/27/17 09:18 Dexamethasone (Dexamethasone) Confirm Administered Dose 8 mg .ROUTE .STK-MED ONE Stop: 04/27/17 09:18 Fentanyl (Sublimaze) Confirm Administered Dose 250 mcg .ROUTE .STK-MED ONE Stop: 04/27/17 09:19 Hydromorphone HCl (Dilaudid) Confirm Administered Dose 1 mg .ROUTE .STK-MED ONE Stop: 04/27/17 09:18 Lidocaine HCl (Xylocaine-Mpf 1%) Confirm Administered Dose 4 mls @ as directed .ROUTE .STK-MED ONE Stop: 04/27/17 09:18 Lactated Ringer's (Ringers, Lactated) Confirm Administered Dose 1,000 mls @ as directed .ROUTE .STK-MED ONE Stop: 04/27/17 09:18 Ketorolac Tromethamine (Toradol) Confirm Administered Dose 30 mg .ROUTE .STK- MED ONE Stop: 04/27/17 09:18 Midazolam HCl (Versed 1 Mg/Ml) Confirm Administered Dose 2 mg .ROUTE .STK-MED ONE Stop: 04/27/17 09:19 Ondansetron HCl (Zofran) Confirm Administered Dose 4 mg .ROUTE .STK-MED ONE Stop: 04/27/17 09:18 Propofol (Diprivan 20 Ml) Confirm Administered Dose 200 mg .ROUTE .STK-MED ONE Stop: 04/27/17 09:18 Rocuronium Lonepine (Zemuron) Confirm Administered Dose 50 mg .ROUTE .STK-MED ONE Stop: 04/27/17 09:18
[2017-04-27] MEDS ORDERED: Midazolam 1 MG/ML 2 ML SDV ONE (11:44)
[2017-04-27] MEDS ORDERED: fentaNYL 250 MCG/5 ML SDV ONE (11:44)
[2017-04-27] MEDS ORDERED: Lidocaine 1% 4 ML ONE (11:44)
[2017-04-27] MEDS ORDERED: Propofol 200 MG/20 ML SDV ONE ×4 (11:44→12:44)
[2017-04-27] MEDS ORDERED: Rocuronium 50 MG/5 ML Vial ONE (11:44)
[2017-04-27] MEDS ORDERED: Ondansetron 4 MG/2 ML SDV ONE (11:44)
[2017-04-27] MEDS ORDERED: ceFAZolin 1 GM Vial ONE (11:45)
[2017-04-27] MEDS ORDERED: Dexamethasone 4 MG/ML SDV ONE (12:05)
[2017-04-27] MEDS ORDERED: HYDROmorphone 1 MG/ML Syringe ONE (12:23)
[2017-04-27] MEDS ORDERED: Lactated Ringers 1,000 ML ONE (12:32)
[2017-04-27] MEDS ORDERED: fentaNYL 250 MCG/5 ML SDV IVPUSH PRN (13:06)
[2017-04-27] MEDS ORDERED: HYDROmorphone 0.5 MG/0.5 ML Syringe IVPUSH PRN (13:06)
[2017-04-27] MEDS ORDERED: Ketorolac 30 MG/ML SDV IVPUSH PRN (13:06)
--- NOTE | 2017-04-27 13:08 | PCM.POSTAN ---
POST ANESTHESIA ASSESSMENT - MENTAL STATUS Mental Status: Somnolent - VITAL SIGNS Pulse Rate: 85 SaO2: 92 Resp Rate: 8 Blood Pressure: 127/80 Temperature: 36.4 C - RESPIRATORY Respiratory Status: Respiratory Rate WNL, Airway Patent, O2 Saturation Stable, Supplemental Oxygen - CARDIOVASCULAR CV Status: Pulse Rate WNL, Blood Pressure Stable - GASTROINTESTINAL GI Status: No Symptoms - PAIN Pain Score: 0 - POST OP HYDRATION Hydration Status: Adequate & Stable - OBSERVATIONS Free Text/Narrative:: no anesthesia complications noted
[2017-04-27] MEDS ORDERED: fentaNYL 100 MCG/2 ML SDV IV PRN (13:45)
--- NOTE | 2017-04-27 14:04 | PCM.OPNOTE ---
- General Post-Op/Procedure Note Date of Surgery/Procedure: 04/27/17 Operative Procedure(s): Laparoscopic 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ectomy of bilateral ovaries, lysis of adhesions, fulguration of endometriosis lesions Findings: Bilateral ovaries with 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s, two large cysts in left ovary and one in the right ovary. Uterus overall normal in appearance except for suspected endometriosis at uterine fundus on posterior side near left fallopian tube. Overall normal appearing tubes bilaterally. Moderate amount of adhesions of descending colon to lateral side wall. Appendix normal in appearance. Several small endometriosis lesions in posterior cul-de-sac. Pre Op Diagnosis: Pelvic pain with persistent 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, history of endometriosis Post-Op Diagnosis: Same, bilateral 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s, endometriosis lesions in posterior cul-de-sac Anesthesia Technique: General ET Tube Primary Surgeon: Randy Diaz Secondary Surgeon: John Gorman Anesthesia Provider: Nish Neal Reason General Passenger Agent Was Necessary: Laparoscopically trained provider and for patient safety Role of General Passenger Agent: Use of laparoscopic instruments during the case as needed. Pathology: Left 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 wall, right 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 wall Fluid Replacement, Intraop: 1,500 Output, Urine Amount: 400 EBL in mLs: 5 Complications: None Condition: Good Free Text/Narrative:: Intake & Output 04/26/17 04/27/17 04/27/17 22:59 06:59 14:59 Intake Total 450 Balance 450 Duratioin: 47 minutes Procedure in detail: The patient was seen in the pre-operative room and the previously signed consents were reviewed with the patient. She desired to proceed with diagnostic laparoscopy, 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ectomy of affected ovary, fulguration of endometriosis lesions and lysis of adhesions. She was taken back to the operating room and was given general anesthesia with endotracheal tube that was placed without difficulty. A time-out was held to confrim the correct patient with two identifiers as well as the correct surgery. This information was confirmed as correct. She was placed in dorsal lithotomy position using Yellofin stirrups. She was prepped and draped in a normal sterile fashion. Attention was turned to patients perineum and a weighted speculum was placed in the vagina and her cervix was visualized. The anterior lip of the cervix was grasped with a single tooth tenaculum. A uterine manipulator was placed through the cervix and into the uterus. The uterus sounded to 9 cm. A fine catheter was then placed without difficulty. Attention was then turned to the patient's abdomen. The inferior umbilicus was injected with marcaine and a stab incision was made with a scalpel. A Veress needle was inserted through the incision and felt to be within the peritoneal cavity. Insufflation was started with an opening pressure of 8 mmHg. After insufflation for approximately 1 minute without formation of a tympanic abdomen. A 5 mm trocar was inserted under direct visualization into the abdomen without a pneumoperitum. The intestines were inspected and no injury was seen at the entry point. Attention was then turned to the suprapubic area and the skin was injected with local anesthetic of marcaine. A stab incision was made with a scalpel and a 5 mm trocar was placed under direct visualization. The ovaries were then inspected and noted to have several simple appearing cysts within the left ovary and one cyst within the right ovary. There was also an adhesion from the pelvis to the right ovary. The uterus was overall normal appearing except for suspected endometriosis lesions at the uterine fundus on the posterior side near the left fallopian tube. The fallopian tubes are overall normal appearing. There was several small endometriosis lesions in the posterior cul-de-sac. There was adhesions from the descending colon to the lateral abdominal side wall. Attention was then turned to the left lower quadrant of the abdomen and the skin was injected with marcaine approximately half way between the ASIS and the umbilicus. A 5 mm trocar was then inserted under direct visualization. A Harmonic scalpel was then used to incise the ovarian tissue overlying one of the cysts in the left ovary. The cyst was ruptured during incising the ovarian tissue and the fluid was clear. The cyst wall was then removed from the cystic cavity and was sent for pathology. This was repeated for the second cyst in the left ovary and it was again ruptured and the fluid was clear. The cyst wall was attempted to be removed but it was strongly adherent to the ovarian tissue and unable to be removed. The 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 beds were hemostatic. Attention was then turned to the right ovary and again the ovarian tissue overlying the cyst was incised using the Harmonic scalpel. During the incising of the ovarian tissue the cyst was ruptured and clear fluid was drained from the cyst. The cyst wall was then removed from the cyst cavity. This was sent for pathology. Hemostasis was assured with coagulation of the cyst bed with the Harmonic scalpel. The adhesion from the right ovary to the pelvis was then ligated using the Harmonic scalpel. Attention was then turned to the pelvis and the suspected endometriosis lesions were fulgurated from the posterior fundus of the uterus. The posterior cul-de- sac endometriosis lesions were then fulgurated using the Harmonic scalpel. The appendix was inspected and felt to be overall normal in appearance. The case was completed at this time. The trocars were then removed and the gas was desufflated from the abdomen. The incisions were then closed using 4-0 Monocryl and covered with Dermabond skin glue. The uterine manipulator was removed and fine catheter was removed. Instrument and sponge counts were correct x 2 at the end of the case. She was awoken and taken to the recovery room. She will be discharged to home once she is tolerating small amounts of regular diet, pain is controlled with oral pain meds, minimal nausea, ambulating and she is able to void. She will follow up in the clinic in 2 weeks or earlier as needed.
[2017-04-27] MEDS ORDERED: Acetaminophen/oxyCODONE 325-5 MG Tab PO ONE (14:15)
[2017-04-27 15:15] VITALS: BP 139/82
== END 2017-04-27 15:30 | disposition home or self-care (01) ==
LOC: JD.SDS 10:22
PROVIDERS: ATTEND Obstetrics & Gynecology
DX: N83.11 Corpus luteum cyst of right ovary (principal); N83.12 Corpus luteum cyst of left ovary; Z88.8 Allergy status to other drugs, medicaments and biological substances; Z91.041 Radiographic dye allergy status; Z91.011 Allergy to milk products; Z91.09 Other allergy status, other than to drugs and biological substances; Z79.899 Other long term (current) drug therapy
CPT/HCPCS: 36415; 58662; 80048; 81025; 85025; 87086; A9270; J0690; J1100; J1170; J2250; J2405; J3010; J7120; 00840; J1885; J2704

== ENCOUNTER 2017-08-10 13:20 | Emergency (ER) | payer MEDICAID ==
[2017-08-10 13:34] VITALS: BP 126/86
[2017-08-10] MEDS ORDERED: Famotidine 20 MG/2 ML SDV IVPUSH ONE (13:54)
[2017-08-10] MEDS ORDERED: Sodium Chloride 0.9% 10 ML Syringe FLUSH PRN (13:54)
[2017-08-10] MEDS ORDERED: Alum Hydrox/Mag Hydrox/Simeth 30 ML, Lidocaine 2% 15 ML PO ONE ×2 (14:01)
--- NOTE | 2017-08-10 14:39 | CR ---
Chest: Two views of the chest were obtained. Comparison: Prior chest x-ray of 01/22/16. Heart size and mediastinum are within normal limits. Lungs are clear. Slight scoliosis is noted within the spine. Surgical clips are noted from prior cholecystectomy. Impression: 1. Incidental findings. Nothing acute is appreciated on two-view chest x-ray. Diagnostic code #2
--- NOTE | 2017-08-10 14:58 | EDM.PDOC ---
ED HPI GENERAL MEDICAL PROBLEM - General Chief Complaint: Chest Pain Stated Complaint: CHEST PAIN Time Seen by Provider: 08/10/17 13:41 Source of Information: Reports: Patient History Limitations: Reports: No Limitations - History of Present Illness INITIAL COMMENTS - FREE TEXT/NARRATIVE: 47-year-old female presents for evaluation and treatment of chest pain and shortness of breath. Patient reports that started last night. She reports chest pain with breathing. She states that she has a hard time swallowing and water seems to worsen her discomfort. She also reports palpitations as well as numbness and tingling into her fingertips. She has complaining of pain radiating in between her shoulder blades. She did take a muscle relaxer last night but this did not help her symptoms at all. No nausea or vomiting. No abdominal pain.. Patient was seen by her primary care provider and started on omeprazole and on 4--18. She was also started on antibiotic for sinus infection and a urinary tract infection. Patient states she's not an EGD in several years. Primary care provider is dean kaufman. Middle Chest Pain Score (Numeric/FACES): 10 - Related Data Allergies Allergy/AdvReac Type Severity Reaction Status Date / Time Iodinated Contrast- Oral and Allergy Mild Rash Verified 04/26/17 16:01 IV Dye [Iodinated Contrast Media - Oral and] adalimumab [From Humira] Allergy Redness Verified 04/26/17 16:01 lactose Allergy Anaphylactic Verified 04/26/17 16:01 Shock homeopathic drugs Allergy hayfever Uncoded 04/26/17 16:01 Home Meds: Home Meds Etanercept [Enbrel] 25 mg SQ WEEKLY 09/07/16 [History] Methotrexate 8 tab PO ASDIRECTED 03/09/17 [History] Folic Acid 1 mg PO DAILY 04/26/17 [History] Gluc 2KCl/Chondr/Rajesh Hy/Hy Ac [Glucosamine & Chondroitin Cap] 1 cap PO DAILY [History] Ibuprofen 600 mg PO Q6H PRN #60 tablet 04/27/17 [Rx] Ondansetron HCl [Zofran] 4 mg PO Q8H PRN #30 tablet 04/27/17 [Rx] Cefuroxime Axetil [Cefuroxime] 250 mg PO BID 08/10/17 [History] Past Medical History - Past Health History Medical/Surgical History: Denies Medical/Surgical History HEENT History: Reports: Sinusitis, Other (See Below) Other HEENT History: left eye conjunctivitis, sinus infection, strep throat Cardiovascular History: Reports: None Respiratory History: Reports: None Gastrointestinal History: Reports: GERD, Other (See Below) Other Gastrointestinal History: colitis Genitourinary History: Reports: Renal Calculus, Other (See Below) Other Genitourinary History: dysuria [employer]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, Other (See Below) Other OB/BYN History: left 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, heavy menses Musculoskeletal History: Reports: Arthritis, RA Neurological History: Reports: Seizure Psychiatric History: Reports: Depression Endocrine/Metabolic History: Reports: None, Other (See Below) Other Endocrine/Metabolic History: 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 Hematologic History: Reports: None Immunologic History: Reports: Immunosuppression Other Immunologic History: enbrel use Oncologic (Cancer) History: Reports: None Dermatologic History: Reports: None - Past Surgical History Head Surgeries/Procedures: Reports: None Cardiovascular Surgical History: Reports: None Respiratory Surgical History: Reports: None GI Surgical History: Reports: Cholecystectomy Female Surgical History: Reports: Other (See Below) Other Female Surgeries/Procedures: UTI Endocrine Surgical History: Reports: None Musculoskeletal Surgical History: Reports: None Oncologic Surgical History: Reports: None Dermatological Surgical History: Reports: None Social & Family History - Family History Family Medical History: Noncontributory - Tobacco Use Smoking Status *Q: Never Smoker Second Hand Smoke Exposure: No - Caffeine Use Caffeine Use: Reports: Tea - Alcohol Use Days Per Week of Alcohol Use: 0 - Recreational Drug Use Recreational Drug Use: No - Living Situation & Occupation Living situation: Reports: , with Family Occupation: Unemployed ED ROS GENERAL - Review of Systems Review Of Systems: See Below Constitutional: Denies: Fever, Chills Respiratory: Reports: Shortness of Breath, Pleuritic Chest Pain. Denies: Cough Cardiovascular: Reports: Chest Pain, Palpitations GI/Abdominal: Denies: Abdominal Pain, Nausea, Vomiting Neurological: Reports: Numbness (fingertips), Tingling (fingertips) ED EXAM, GENERAL - Physical Exam Exam: See Below Exam Limited By: No Limitations General Appearance: Alert, WD/WN, No Apparent Distress Eye Exam: Bilateral Eye: Normal Inspection Ears: Normal External Exam Nose: Normal Inspection Throat/Mouth: Normal Inspection, Normal Voice, No Airway Compromise Respiratory/Chest: No Respiratory Distress, Lungs Clear, Normal Breath Sounds Cardiovascular: Normal Peripheral Pulses, Regular Rate, Rhythm, No Murmur GI/Abdominal: Soft, Non-Tender Neurological: Alert, Oriented, Normal Cognition Psychiatric: Normal Affect, Normal Mood Skin Exam: Warm, Dry, Normal Color EKG INTERPRETATION EKG Date: 08/10/17 Time: 11:35 Rhythm: NSR Rate (Beats/Min): 71 [place]: Normal P-Wave: Present QRS: Normal ST-T: Elevated (1mm in V4, V5, V6 , II and III) QT: Normal EKG Interpretation Comments: NSR at 71 bpm. 1 mm elevation the for, V5, V6, 2 and 3, contour suggests early repolarization but ischemia not excluded. Reviewed by myself and Dr. Rajesh Tran. Course - Vital Signs Last Recorded V/S: Last Vital Signs Temp 36.3 C 08/10/17 13:33 Pulse 78 08/10/17 13:33 Resp 20 08/10/17 13:33 BP 126/86 08/10/17 13:33 Pulse Ox 99 08/10/17 13:33 - Orders/Labs/Meds Orders: Active Orders 24 hr Category Date Time Status Cardiac Monitoring [RC] . DIRECTED Care 08/10/17 13:54 Active EKG Documentation Completion [RC] ASDIRECTED Care 08/10/17 13:55 Active Peripheral IV Care [RC] . DIRECTED Care 08/10/17 13:55 Active UA W/MICROSCOPIC [URIN] Stat Lab 08/10/17 14:35 Ordered Peripheral IV Insertion Adult [OM.PC] Routine Oth 08/10/17 13:53 Ordered EKG 12 Lead [EK] Stat Ther 08/10/17 13:54 Ordered Labs: Laboratory Tests 08/10/17 08/10/17 08/10/17 Range/Units 14:10 14:10 14:10 WBC 5.82 (3.98-10.04) K/mm3 RBC 5.31 H (3.98-5.22) M/mm3 Hgb 15.5 (11.2-15.7) gm/L Hct 46.2 H (34.1-44.9) % MCV 87.0 (79.4-94.8) fl MCH 29.2 (25.6-32.2) pg MCHC 33.5 (32.2-35.5) g/dl RDW Std Deviation 46.0 (36.4-46.3) fL Plt Count 250 (182-369) K/mm3 MPV 9.3 L (9.4-12.3) fl Neut % (Auto) 65.2 (34.0-71.1) % Lymph % (Auto) 21.1 (19.3-51.7) % [place] % (Auto) 11.3 (4.7-12.5) % Eos % (Auto) 1.4 (0.7-5.8) Baso % (Auto) 0.7 (0.1-1.2) % Neut # (Auto) 3.79 (1.56-6.13) K/mm3 Lymph # (Auto) 1.23 (1.18-3.74) K/mm3 [place] # (Auto) 0.66 H (0.24-0.36) K/mm3 Eos # (Auto) 0.08 (0.04-0.36) K/mm3 Baso # (Auto) 0.04 (0.01-0.08) K/mm3 D-Dimer, Quantitative 0.31 (0.19-0.59) mg/L Sodium 141 (136-145) mEq/L Potassium 3.8 (3.5-5.1) mEq/L Chloride 105 (98-107) mEq/L Carbon Dioxide 29 (21-32) mEq/L Anion Gap 10.8 (5-15) BUN 14 (7-18) mg/dL Creatinine 0.8 (0.55-1.02) mg/dL Est Cr Clr Drug Dosing 83.63 mL/min Estimated GFR (MDRD) > 60 (>60) mL/min BUN/Creatinine Ratio 17.5 (14-18) Glucose 94 (74-106) mg/dL Calcium 9.2 (8.5-10.1) mg/dL Total Bilirubin 0.4 (0.2-1.0) mg/dL AST 15 (15-37) U/L ALT 17 (14-59) U/L Alkaline Phosphatase 85 (46-116) U/L CK-MB (CK-2) 0.9 (0-3.6) ng/ml Troponin I < 0.017 (0.00-0.056) ng/mL Total Protein 7.5 (6.4-8.2) g/dl Albumin 3.3 L (3.4-5.0) g/dl Globulin 4.2 gm/dL Albumin/Globulin Ratio 0.8 L (1-2) Lipase 141 (73-393) U/L Urine Color (Yellow) Urine Appearance (Clear) Urine pH (5.0-8.0) Ur Specific [place] (1.005-1.030) Urine Protein (Negative) Urine Glucose (UA) (Negative) Urine Ketones (Negative) Urine Occult Blood (Negative) Urine Nitrite (Negative) Urine Bilirubin (Negative) Urine Urobilinogen (0.2-1.0) Ur Leukocyte Esterase (Negative) Urine RBC (0-5) /hpf Urine WBC (0-5) /hpf Ur Epithelial Cells (0-5) /hpf Urine Bacteria (FEW) /hpf Urine Mucus (FEW) /hpf Urine Yeast (NOT SEEN) 08/10/17 Range/Units 14:35 WBC (3.98-10.04) K/mm3 RBC (3.98-5.22) M/mm3 Hgb (11.2-15.7) gm/L Hct (34.1-44.9) % MCV (79.4-94.8) fl MCH (25.6-32.2) pg MCHC (32.2-35.5) g/dl RDW Std Deviation (36.4-46.3) fL Plt Count (182-369) K/mm3 MPV (9.4-12.3) fl Neut % (Auto) (34.0-71.1) % Lymph % (Auto) (19.3-51.7) % [place] % (Auto) (4.7-12.5) % Eos % (Auto) (0.7-5.8) Baso % (Auto) (0.1-1.2) % Neut # (Auto) (1.56-6.13) K/mm3 Lymph # (Auto) (1.18-3.74) K/mm3 [place] # (Auto) (0.24-0.36) K/mm3 Eos # (Auto) (0.04-0.36) K/mm3 Baso # (Auto) (0.01-0.08) K/mm3 D-Dimer, Quantitative (0.19-0.59) mg/L Sodium (136-145) mEq/L Potassium (3.5-5.1) mEq/L Chloride (98-107) mEq/L Carbon Dioxide (21-32) mEq/L Anion Gap (5-15) BUN (7-18) mg/dL Creatinine (0.55-1.02) mg/dL Est Cr Clr Drug Dosing mL/min Estimated GFR (MDRD) (>60) mL/min BUN/Creatinine Ratio (14-18) Glucose (74-106) mg/dL Calcium (8.5-10.1) mg/dL Total Bilirubin (0.2-1.0) mg/dL AST (15-37) U/L ALT (14-59) U/L Alkaline Phosphatase (46-116) U/L CK-MB (CK-2) (0-3.6) ng/ml Troponin I (0.00-0.056) ng/mL Total Protein (6.4-8.2) g/dl Albumin (3.4-5.0) g/dl Globulin gm/dL Albumin/Globulin Ratio (1-2) Lipase (73-393) U/L Urine Color Light yellow (Yellow) Urine Appearance Slt cloudy H (Clear) Urine pH 6.0 (5.0-8.0) Ur Specific [place] 1.010 (1.005-1.030) Urine Protein Negative (Negative) Urine Glucose (UA) Negative (Negative) Urine Ketones Negative (Negative) Urine Occult Blood Trace-intact H (Negative) Urine Nitrite Negative (Negative) Urine Bilirubin Negative (Negative) Urine Urobilinogen 0.2 (0.2-1.0) Ur Leukocyte Esterase Trace H (Negative) Urine RBC 0-5 (0-5) /hpf Urine WBC 5-10 H (0-5) /hpf Ur Epithelial Cells 10-20 H (0-5) /hpf Urine Bacteria Few (FEW) /hpf Urine Mucus Not seen (FEW) /hpf Urine Yeast Few H (NOT SEEN) Meds: Medications Discontinued Medications Generic Name Dose Route Start Last Admin Trade Name Freq PRN Reason Stop Dose Admin Al Hydroxide/Mg Hydroxide 30 0 ml 08/10/17 14:01 08/10/17 14:08 ml/ Lidocaine HCl 15 ml PO 08/10/17 14:02 45 ml ONETIME ONE Administration Famotidine 20 mg 08/10/17 13:54 08/10/17 14:08 Pepcid IVPUSH 08/10/17 13:55 20 mg ONETIME ONE Administration Sodium Chloride 10 ml 08/10/17 13:54 08/10/17 14:08 Saline Flush FLUSH 10 ml ASDIRECTED PRN Administration Keep Vein Open - Radiology Interpretation Free Text/Narrative:: Chest: Two views of the chest were obtained. Comparison: Prior chest x-ray of 01/22/16. Heart size and mediastinum are within normal limits. Lungs are clear. Slight scoliosis is noted within the spine. Surgical clips are noted from prior cholecystectomy. Impression: 1. Incidental findings. Nothing acute is appreciated on two-view chest x-ray. - Re-Assessments/Exams Free Text/Narrative Re-Assessment/Exam: 08/10/17 15:51 Reviewed the labs, EKG and imaging with the patient. She is feeling improved after the GI cocktail and pepcid and does not have any symptoms at this time. She talks about how she's had this in the past. We will discharge her home. Likely reflux causing her symptoms today. Discharge instructions as documented. Departure - Departure Time of Disposition: 15:52 Disposition: Home, Self-Care 01 Condition: Good Clinical Impression: Gastroesophageal reflux disease Instructions: Gastroesophageal Reflux Disease, Adult Referrals: Shanique Kaufman NP [Primary Care Provider] - Forms: ED Department Discharge Additional Instructions: Continue on your omeprazole. you may also take [id number] much medication such as Tums or Zantac as needed for additional relief. Follow-up with your primary care provider within 2 weeks for recheck of your symptoms. Also recommend discussing a stress test. Please return to the ER if your symptoms change or worsen. - My Orders Last 24 Hours: My Active Orders 08/10/17 13:53 Peripheral IV Insertion Adult [OM.PC] Routine 08/10/17 13:54 Cardiac Monitoring [RC] . DIRECTED EKG 12 Lead [EK] Stat 08/10/17 13:55 EKG Documentation Completion [RC] ASDIRECTED Peripheral IV Care [RC] . DIRECTED 08/10/17 14:35 UA W/MICROSCOPIC [URIN] Stat - Assessment/Plan Last 24 Hours: My Active Orders 08/10/17 13:53 Peripheral IV Insertion Adult [OM.PC] Routine 08/10/17 13:54 Cardiac Monitoring [RC] . DIRECTED EKG 12 Lead [EK] Stat 08/10/17 13:55 EKG Documentation Completion [RC] ASDIRECTED Peripheral IV Care [RC] . DIRECTED 08/10/17 14:35 UA W/MICROSCOPIC [URIN] Stat
== END 2017-08-10 16:05 | disposition home or self-care (01) ==
LOC: JD.ED 13:20
DX: K21.9 Gastro-esophageal reflux disease without esophagitis (principal); Z91.041 Radiographic dye allergy status; Z88.8 Allergy status to other drugs, medicaments and biological substances; Z91.011 Allergy to milk products; Z79.899 Other long term (current) drug therapy
CPT/HCPCS: 36415; 71046; 80053; 81001; 82553; 83690; 84484; 85025; 85379; 93005; 96374; 99285; A9270; J7050; 93010; 99284

== ENCOUNTER 2018-01-31 15:59 | Emergency (ER) | payer MEDICAID ==
[2018-01-31 16:14] VITALS: BP 125/90
[2018-01-31] MEDS ORDERED: Sodium Chloride 0.9% 10 ML Syringe FLUSH PRN (17:07)
[2018-01-31] MEDS ORDERED: Sodium Chloride 0.9% 1,000 ML IV ONE (17:07)
[2018-01-31] MEDS: Ketorolac 30 MG/ML SDV IM ONE ×2 (17:37→18:59)
[2018-01-31] MEDS ORDERED: Ondansetron 4 MG/2 ML SDV IVPUSH ONE (17:52)
[2018-01-31] MEDS ORDERED: Ketorolac 30 MG/ML SDV IVPUSH ONE (18:34)
--- NOTE | 2018-01-31 19:00 | CT ---
CT abdomen and pelvis Technique: Multiple axial sections were obtained from above the dome of the diaphragm inferiorly through the pubic symphysis. Intravenous and oral contrast not utilized. Study has been performed as a ureteral stone protocol. Comparison: Prior CT abdomen and pelvis exams of 09/24/16 09/07/16. Findings: Kidneys show no abnormal calcifications. No ureteral dilatation or ureteral stone is seen. Visualized lung bases shows nothing acute. Noncontrast appearance of the liver and spleen appears within normal limits. Surgical clips are seen from prior cholecystectomy. Adrenal glands appear unremarkable. There is a soft tissue nodule noted within the left upper abdomen which is adjacent to the spleen which is most likely due to accessory splenic tissue. Pancreas appears within normal limits. Aorta shows no aneurysmal dilatation. Appendix is seen is normal in size. No retroperitoneal adenopathy is seen. Small fat-containing umbilical hernia is seen. No pelvic mass or adenopathy is seen. No free fluid or inflammatory change is seen. Bone window settings were reviewed which appear within normal limits for the patient's age. Mild increased stool noted throughout colon. Impression: 1. No renal calculi, ureteral dilatation or ureteral stone is seen. Prior study showed small calcifications within kidneys which are not seen on current exam. 2. Mild increased stool noted throughout the colon. 3. Nothing acute is seen on noncontrast CT study of the abdomen and pelvis. Other incidental findings. Diagnostic code #2
--- NOTE | 2018-01-31 19:59 | EDM.PDOC ---
ED HPI GENERAL MEDICAL PROBLEM - General Chief Complaint: Abdominal Pain Stated Complaint: FLANK PAIN Time Seen by Provider: 01/31/18 16:55 Source of Information: Reports: Patient History Limitations: Reports: No Limitations - History of Present Illness INITIAL COMMENTS - FREE TEXT/NARRATIVE: 47 year old female presents for evaluation and treatment of right flank pain. Reports the symptoms started about 3 days ago. Came on gradually. Reports pain to the right flank. Reports associated symptoms of dysuria and vaginal burning. Tried taking OTC azo without relief. Denies any fevers, chills, nausea, vomiting , abdominal pain or constipation. Reports having looser stools the last few days. Patient reports she has had kidney stones in the past and this feels the same. Past surgeries include a laproscopic cholecysectomy. Right Abdomen Pain Score (Numeric/FACES): 9 - Related Data Allergies Allergy/AdvReac Type Severity Reaction Status Date / Time Iodinated Contrast- Oral and Allergy Mild Rash Verified 04/26/17 16:01 IV Dye [Iodinated Contrast Media - Oral and] adalimumab [From Humira] Allergy Redness Verified 04/26/17 16:01 lactose Allergy Anaphylactic Verified 04/26/17 16:01 Shock homeopathic drugs Allergy hayfever Uncoded 04/26/17 16:01 Home Meds: Home Meds Etanercept [Enbrel] 25 mg SQ WEEKLY 09/07/16 [History] Methotrexate 8 tab PO ASDIRECTED 03/09/17 [History] Folic Acid 1 mg PO DAILY 04/26/17 [History] Gluc 2KCl/Chondr/Rajesh Hy/Hy Ac [Glucosamine & Chondroitin Cap] 1 cap PO DAILY [History] Ibuprofen 600 mg PO Q6H PRN #60 tablet 04/27/17 [Rx] Ondansetron HCl [Zofran] 4 mg PO Q8H PRN #30 tablet 04/27/17 [Rx] Cefuroxime Axetil [Cefuroxime] 250 mg PO BID 08/10/17 [History] Fluconazole [Diflucan] 150 mg PO ONETIME #2 tab 01/31/18 [Rx] Past Medical History - Past Health History Medical/Surgical History: Denies Medical/Surgical History HEENT History: Reports: Sinusitis, Other (See Below) Other HEENT History: left eye conjunctivitis, sinus infection, strep throat Cardiovascular History: Reports: None Respiratory History: Reports: None Gastrointestinal History: Reports: GERD, Other (See Below) Other Gastrointestinal History: colitis Genitourinary History: Reports: Renal Calculus, Other (See Below) Other Genitourinary History: dysuria 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: Reports: 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, Other (See Below) Other 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: left 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, heavy menses Musculoskeletal History: Reports: Arthritis, RA Neurological History: Reports: Seizure Psychiatric History: Reports: Depression Endocrine/Metabolic History: Reports: None, Other (See Below) Other Endocrine/Metabolic History: 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 Hematologic History: Reports: None Immunologic History: Reports: Immunosuppression Other Immunologic History: enbrel use Oncologic (Cancer) History: Reports: None Dermatologic History: Reports: None - Past Surgical History Head Surgeries/Procedures: Reports: None Cardiovascular Surgical History: Reports: None Respiratory Surgical History: Reports: None GI Surgical History: Reports: Cholecystectomy Female Surgical History: Reports: Other (See Below) Other Female Surgeries/Procedures: UTI Endocrine Surgical History: Reports: None Musculoskeletal Surgical History: Reports: None Oncologic Surgical History: Reports: None Dermatological Surgical History: Reports: None Social & Family History - Family History Family Medical History: Noncontributory - Tobacco Use Smoking Status *Q: Never Smoker - Caffeine Use Caffeine Use: Reports: Coffee, Tea - Recreational Drug Use Recreational Drug Use: No - Living Situation & Occupation Living situation: Reports: , with Family Occupation: Unemployed ED ROS GENERAL - Review of Systems Review Of Systems: See Below Constitutional: Denies: Fever, Chills GI/Abdominal: Denies: Abdominal Pain, Constipation, Diarrhea, Nausea, Vomiting : Reports: Dysuria, Flank Pain (right flank), Pain (reports burning vaginal pain with urination), Other (reports vaginal discharge ) ED EXAM, RENAL/ - Physical Exam Exam: See Below Exam Limited By: No Limitations General Appearance: Alert, WD/WN, No Apparent Distress Nose: Normal Inspection Throat/Mouth: Normal Inspection, Normal Voice, No Airway Compromise Respiratory/Chest: No Respiratory Distress, Lungs Clear, Normal Breath Sounds Cardiovascular: Normal Peripheral Pulses, Regular Rate, Rhythm, No Murmur GI/Abdominal: Normal Bowel Sounds, Soft, Non-Tender Neurological: Alert, Oriented, Normal Cognition Psychiatric: Normal Affect, Normal Mood Skin Exam: Warm, Dry, Normal Color Course - Vital Signs Last Recorded V/S: Last Vital Signs Temp 98.8 F 01/31/18 16:11 Pulse 84 01/31/18 16:11 Resp 20 01/31/18 16:11 BP 125/90 01/31/18 16:11 Pulse Ox 100 01/31/18 16:11 - Orders/Labs/Meds Labs: Laboratory Tests 01/31/18 01/31/18 01/31/18 Range/Units 17:25 17:25 17:25 WBC 4.64 (3.98-10.04) K/mm3 RBC 5.07 (3.98-5.22) M/mm3 Hgb 14.5 (11.2-15.7) gm/L Hct 43.2 (34.1-44.9) % MCV 85.2 (79.4-94.8) fl MCH 28.6 (25.6-32.2) pg MCHC 33.6 (32.2-35.5) g/dl RDW Std Deviation 44.1 (36.4-46.3) fL Plt Count 282 (182-369) K/mm3 MPV 9.4 (9.4-12.3) fl Neut % (Auto) 51.2 (34.0-71.1) % Lymph % (Auto) 32.5 (19.3-51.7) % [place] % (Auto) 13.1 H (4.7-12.5) % Eos % (Auto) 2.4 (0.7-5.8) Baso % (Auto) 0.6 (0.1-1.2) % Neut # (Auto) 2.37 (1.56-6.13) K/mm3 Lymph # (Auto) 1.51 (1.18-3.74) K/mm3 [place] # (Auto) 0.61 H (0.24-0.36) K/mm3 Eos # (Auto) 0.11 (0.04-0.36) K/mm3 Baso # (Auto) 0.03 (0.01-0.08) K/mm3 Manual Slide Review Normal smear Sodium 140 (136-145) mEq/L Potassium 3.6 (3.5-5.1) mEq/L Chloride 106 (98-107) mEq/L Carbon Dioxide 25 (21-32) mEq/L Anion Gap 12.6 (5-15) BUN 13 (7-18) mg/dL Creatinine 1.0 (0.55-1.02) mg/dL Est Cr Clr Drug Dosing 71.90 mL/min Estimated GFR (MDRD) 59 (>60) mL/min BUN/Creatinine Ratio 13.0 L (14-18) Glucose 84 (74-106) mg/dL Calcium 9.1 (8.5-10.1) mg/dL Total Bilirubin 0.4 (0.2-1.0) mg/dL AST 13 L (15-37) U/L ALT 21 (14-59) U/L Alkaline Phosphatase 94 (46-116) U/L C-Reactive Protein 0.5 (<1.0) mg/dL Total Protein 7.9 (6.4-8.2) g/dl Albumin 3.6 (3.4-5.0) g/dl Globulin 4.3 gm/dL Albumin/Globulin Ratio 0.8 L (1-2) Urine Color Light yellow (Yellow) Urine Appearance Clear (Clear) Urine pH 6.5 (5.0-8.0) Ur Specific [place] 1.015 (1.005-1.030) Urine Protein Negative (Negative) Urine Glucose (UA) Negative (Negative) Urine Ketones Negative (Negative) Urine Occult Blood Negative (Negative) Urine Nitrite Negative (Negative) Urine Bilirubin Negative (Negative) Urine Urobilinogen 0.2 (0.2-1.0) Ur Leukocyte Esterase Trace H (Negative) Urine RBC 0-5 (0-5) /hpf Urine WBC 5-10 H (0-5) /hpf Ur Epithelial Cells 5-10 H (0-5) /hpf Urine Bacteria Rare (FEW) /hpf Urine Mucus Not seen (FEW) /hpf Meds: Medications Discontinued Medications Generic Name Dose Route Start Last Admin Trade Name Freq PRN Reason Stop Dose Admin Sodium Chloride 1,000 mls @ 999 mls/hr 01/31/18 17:07 01/31/18 17:36 Normal Saline IV 01/31/18 18:07 999 mls/hr ONETIME ONE Administration Ketorolac Tromethamine 30 mg 01/31/18 17:11 01/31/18 18:59 Toradol IM 01/31/18 17:12 Not Given ONETIME ONE Ketorolac Tromethamine 30 mg 01/31/18 18:34 01/31/18 17:37 Toradol IVPUSH 01/31/18 18:35 30 mg ONETIME ONE Administration Ondansetron HCl 4 mg 01/31/18 17:52 01/31/18 18:11 Zofran IVPUSH 01/31/18 17:53 4 mg ONETIME ONE Administration Sodium Chloride 10 ml 01/31/18 17:07 01/31/18 17:37 Saline Flush FLUSH 10 ml ASDIRECTED PRN Administration Keep Vein Open - Radiology Interpretation Free Text/Narrative:: CT abdomen and pelvis Technique: Multiple axial sections were obtained from above the dome of the diaphragm inferiorly through the pubic symphysis. Intravenous and oral contrast not utilized. Study has been performed as a ureteral stone protocol. Comparison: Prior CT abdomen and pelvis exams of 09/24/16 09/07/16. Findings: Kidneys show no abnormal calcifications. No ureteral dilatation or ureteral stone is seen. Visualized lung bases shows nothing acute. Noncontrast appearance of the liver and spleen appears within normal limits. Surgical clips are seen from prior cholecystectomy. Adrenal glands appear unremarkable. There is a soft tissue nodule noted within the left upper abdomen which is adjacent to the spleen which is most likely due to accessory splenic tissue. Pancreas appears within normal limits. Aorta shows no aneurysmal dilatation. Appendix is seen is normal in size. No retroperitoneal adenopathy is seen. Small fat-containing umbilical hernia is seen. No pelvic mass or adenopathy is seen. No free fluid or inflammatory change is seen. Bone window settings were reviewed which appear within normal limits for the patient's age. Mild increased stool noted throughout colon. Impression: 1. No renal calculi, ureteral dilatation or ureteral stone is seen. Prior study showed small calcifications within kidneys which are not seen on current exam. 2. Mild increased stool noted throughout the colon. 3. Nothing acute is seen on noncontrast CT study of the abdomen and pelvis. Other incidental findings. - Re-Assessments/Exams Free Text/Narrative Re-Assessment/Exam: 01/31/18 19:59 reviewed the labs and imaging with the patient. Will treat for constipation. Patient would like difflucan as she feels she likely has a yeast infection. Discharge instructions as documented. Departure - Departure Time of Disposition: 20:01 Disposition: Home, Self-Care 01 Condition: Good Clinical Impression: Vaginal discharge Constipation Qualifiers: Constipation type: unspecified constipation type Qualified Code(s): K59.00 - Constipation, unspecified - Discharge Information *PRESCRIPTION DRUG MONITORING PROGRAM REVIEWED*: No *COPY OF PRESCRIPTION DRUG MONITORING REPORT IN PATIENT FRIDA: No Prescriptions: Fluconazole [Diflucan] 150 mg PO ONETIME #2 tab Instructions: Constipation, Adult Referrals: Shanique Kaufman NP [Primary Care Provider] - Forms: ED Department Discharge Additional Instructions: Recommend magnesium citrate. This is available [id number]. Drink about half of the 300 ml bottle over 1 hour. If you do not have a large bowel movement from this may drink the second half about 8 hours later. Recommend utilizing MiraLAX, this is available [id number], use this daily or every other day for men normal bowel maintenance. Make sure drink plenty of fluids. Take the Diflucan as prescribed, 1 tab PO repeat 72 hours later. Follow-up with your primary care provider as needed. Please return the ER if your symptoms change or worsen.
== END 2018-01-31 20:15 | disposition home or self-care (01) ==
LOC: JD.ED 15:59
DX: K59.00 Constipation, unspecified (principal); N89.8 Other specified noninflammatory disorders of vagina; Z88.8 Allergy status to other drugs, medicaments and biological substances; Z91.011 Allergy to milk products; Z79.899 Other long term (current) drug therapy; Z91.041 Radiographic dye allergy status
CPT/HCPCS: 36415; 74176; 80053; 81001; 85025; 86140; 87086; 96361; 96374; 96375; 99284; J2405; J7040; J7050; J1885

== ENCOUNTER 2018-05-20 05:32 | Emergency (ER) | payer MEDICAID ==
[2018-05-20 05:40] VITALS: BP 165/100
--- NOTE | 2018-05-20 06:50 | EDM.PDOC ---
ED HPI GENERAL MEDICAL PROBLEM - General Chief Complaint: Cardiovascular Problem Stated Complaint: RAPID HEART BEAT Time Seen by Provider: 05/20/18 05:46 Source of Information: Reports: Patient History Limitations: Reports: No Limitations - History of Present Illness INITIAL COMMENTS - FREE TEXT/NARRATIVE: The patient presents with palpitations. She woke up at 3am and she was anxious and had palpitations. She developed some chest pain after. She could not go back to sleep. She has no shortness of breath. She has no history of heart disease. She does have a cough and was diagnosed with bronchitis. She has no history of DVT or PE. She does not smoke. She said her heart was pounding. Onset: Sudden Duration: Hour(s): (3am) Location: Reports: Chest Quality: Reports: Pressure Severity: Mild Improves with: Reports: None Worsens with: Reports: None Associated Symptoms: Reports: Chest Pain, Cough. Denies: Fever/Chills, Headaches, Nausea/Vomiting, Shortness of Breath - Related Data Allergies Allergy/AdvReac Type Severity Reaction Status Date / Time Iodinated Contrast- Oral and Allergy Mild Rash Verified 05/20/18 05:37 IV Dye [Iodinated Contrast Media - Oral and] adalimumab [From Humira] Allergy Redness Verified 05/20/18 05:37 lactose Allergy Anaphylactic Verified 05/20/18 05:37 Shock homeopathic drugs Allergy hayfever Uncoded 05/20/18 05:37 Home Meds: Home Meds Etanercept [Enbrel] 25 mg SQ WEEKLY 09/07/16 [History] Methotrexate 8 tab PO ASDIRECTED 03/09/17 [History] Folic Acid 1 mg PO DAILY 04/26/17 [History] Gluc 2KCl/Chondr/Rajesh Hy/Hy Ac [Glucosamine & Chondroitin Cap] 1 cap PO DAILY [History] Ibuprofen 600 mg PO Q6H PRN #60 tablet 04/27/17 [Rx] Ondansetron HCl [Zofran] 4 mg PO Q8H PRN #30 tablet 04/27/17 [Rx] Cefuroxime Axetil [Cefuroxime] 250 mg PO BID 08/10/17 [History] Fluconazole [Diflucan] 150 mg PO ONETIME #2 tab 01/31/18 [Rx] Past Medical History - Past Health History Medical/Surgical History: Denies Medical/Surgical History HEENT History: Reports: Sinusitis, Other (See Below) Other HEENT History: left eye conjunctivitis, sinus infection, strep throat Cardiovascular History: Reports: None Respiratory History: Reports: None Gastrointestinal History: Reports: GERD, Other (See Below) Other Gastrointestinal History: colitis Genitourinary History: Reports: Renal Calculus, Other (See Below) Other Genitourinary History: dysuria 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: Reports: 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, Other (See Below) 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: left 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, heavy menses Musculoskeletal History: Reports: Arthritis, RA Neurological History: Reports: Seizure Psychiatric History: Reports: Depression Endocrine/Metabolic History: Reports: None, Other (See Below) Other Endocrine/Metabolic History: 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 Hematologic History: Reports: None Immunologic History: Reports: Immunosuppression Other Immunologic History: enbrel use Oncologic (Cancer) History: Reports: None Dermatologic History: Reports: None - Past Surgical History Head Surgeries/Procedures: Reports: None Cardiovascular Surgical History: Reports: None Respiratory Surgical History: Reports: None GI Surgical History: Reports: Cholecystectomy Female Surgical History: Reports: Other (See Below) Other Female Surgeries/Procedures: UTI Endocrine Surgical History: Reports: None Musculoskeletal Surgical History: Reports: None Oncologic Surgical History: Reports: None Dermatological Surgical History: Reports: None Social & Family History - Family History Family Medical History: Noncontributory - Tobacco Use Smoking Status *Q: Never Smoker - Caffeine Use Caffeine Use: Reports: Coffee, Tea - Recreational Drug Use Recreational Drug Use: No - Living Situation & Occupation Living situation: Reports: , with Family Occupation: Unemployed ED ROS GENERAL - Review of Systems Review Of Systems: See Below Constitutional: Reports: No Symptoms HEENT: Reports: No Symptoms Respiratory: Reports: Cough. Denies: Shortness of Breath Cardiovascular: Reports: Chest Pain, Palpitations Endocrine: Reports: No Symptoms GI/Abdominal: Reports: No Symptoms : Reports: No Symptoms Musculoskeletal: Reports: No Symptoms ED EXAM, GENERAL - Physical Exam Exam: See Below Exam Limited By: No Limitations General Appearance: Alert, No Apparent Distress Ears: Normal External Exam Nose: Normal Inspection Head: Atraumatic, Normocephalic Neck: Normal Inspection Respiratory/Chest: No Respiratory Distress, Lungs Clear, Normal Breath Sounds Cardiovascular: Regular Rate, Rhythm, No Edema, No Murmur GI/Abdominal: Soft, Non-Tender, No Organomegaly, No Mass Extremities: Normal Inspection Neurological: Alert, Oriented, No Motor/Sensory Deficits EKG INTERPRETATION EKG Date: 05/20/18 Time: 05:43 Rhythm: NSR Rate (Beats/Min): 75 [place]: Normal P-Wave: Present QRS: Normal ST-T: Normal QT: Normal Course - Vital Signs Last Recorded V/S: Last Vital Signs Temp 98.2 F 05/20/18 05:38 Pulse 76 05/20/18 05:38 Resp 17 05/20/18 05:38 BP 165/100 H 05/20/18 05:38 Pulse Ox 97 05/20/18 05:38 - Orders/Labs/Meds Orders: Active Orders 24 hr Category Date Time Status Cardiac Monitoring [RC] . DIRECTED Care 05/20/18 05:53 Active EKG 12 Lead [EKG Documentation Completion] [RC] STAT Care 05/20/18 05:44 Active Chest 1V Frontal [CR] Stat Exams 05/20/18 05:53 Taken Labs: Laboratory Tests 05/20/18 05/20/18 Range/Units 06:00 06:00 WBC 6.52 (3.98-10.04) K/mm3 RBC 5.22 (3.98-5.22) M/mm3 Hgb 15.1 (11.2-15.7) gm/L Hct 44.4 (34.1-44.9) % MCV 85.1 (79.4-94.8) fl MCH 28.9 (25.6-32.2) pg MCHC 34.0 (32.2-35.5) g/dl RDW Std Deviation 43.7 (36.4-46.3) fL Plt Count 281 (182-369) K/mm3 MPV 9.6 (9.4-12.3) fl Neut % (Auto) 70.2 (34.0-71.1) % Lymph % (Auto) 22.1 (19.3-51.7) % [place] % (Auto) 6.7 (4.7-12.5) % Eos % (Auto) 0.2 L (0.7-5.8) Baso % (Auto) 0.5 (0.1-1.2) % Neut # (Auto) 4.58 (1.56-6.13) K/mm3 Lymph # (Auto) 1.44 (1.18-3.74) K/mm3 [place] # (Auto) 0.44 H (0.24-0.36) K/mm3 Eos # (Auto) 0.01 L (0.04-0.36) K/mm3 Baso # (Auto) 0.03 (0.01-0.08) K/mm3 Sodium 142 (136-145) mEq/L Potassium 3.7 (3.5-5.1) mEq/L Chloride 108 H (98-107) mEq/L Carbon Dioxide 25 (21-32) mEq/L Anion Gap 12.7 (5-15) BUN 13 (7-18) mg/dL Creatinine 0.8 (0.55-1.02) mg/dL Est Cr Clr Drug Dosing 83.63 mL/min Estimated GFR (MDRD) > 60 (>60) mL/min BUN/Creatinine Ratio 16.3 (14-18) Glucose 96 (74-106) mg/dL Calcium 8.9 (8.5-10.1) mg/dL Total Bilirubin 0.6 (0.2-1.0) mg/dL AST 6 L (15-37) U/L ALT 21 (14-59) U/L Alkaline Phosphatase 62 (46-116) U/L Troponin I < 0.017 (0.00-0.056) ng/mL Total Protein 7.6 (6.4-8.2) g/dl Albumin 3.6 (3.4-5.0) g/dl Globulin 4.0 gm/dL Albumin/Globulin Ratio 0.9 L (1-2) TSH 3rd Generation 2.142 (0.358-3.74) uIU/mL - Re-Assessments/Exams Free Text/Narrative Re-Assessment/Exam: 05/20/18 06:52 I ordered an EKG, CXR and labs. Her EKG shows a NSR with no acute changes. Her CXR looks good. Her CBC and CMP look good. Her troponin is negative. 05/20/18 07:10 Her TSH is negative. I will discharge her home. Departure - Departure Time of Disposition: 07:15 Disposition: Home, Self-Care 01 Condition: Good Clinical Impression: Palpitations, Bronchitis, Atypical chest pain Referrals: Shanique Kaufman NP [Primary Care Provider] - Forms: ED Department Discharge, ED Return to Work/School Form Additional Instructions: Go home and rest. Take tylenol or motrin for pain. Please return if you are worse. - My Orders Last 24 Hours: My Active Orders 05/20/18 05:44 EKG 12 Lead [EKG Documentation Completion] [RC] STAT 05/20/18 05:53 Cardiac Monitoring [RC] . DIRECTED Chest 1V Frontal [CR] Stat - Assessment/Plan Last 24 Hours: My Active Orders 05/20/18 05:44 EKG 12 Lead [EKG Documentation Completion] [RC] STAT 05/20/18 05:53 Cardiac Monitoring [RC] . DIRECTED Chest 1V Frontal [CR] Stat
--- NOTE | 2018-05-20 08:23 | CR ---
Chest: Portable view of the chest was obtained. Comparison: Prior chest x-ray of 08/10/17. Heart size and mediastinum are normal. Lungs are clear. Bony structures are grossly intact. Surgical clips are seen from prior cholecystectomy. Impression: 1. Nothing acute is seen on portable chest x-ray. Diagnostic code #2
== END 2018-05-20 07:29 | disposition home or self-care (01) ==
LOC: JD.ED 05:32
DX: R00.2 Palpitations (principal); J40 Bronchitis, not specified as acute or chronic; R07.89 Other chest pain; K21.9 Gastro-esophageal reflux disease without esophagitis; F32.9 Major depressive disorder, single episode, unspecified; R56.9 Unspecified convulsions; Z79.2 Long term (current) use of antibiotics; Z79.899 Other long term (current) drug therapy; Z91.041 Radiographic dye allergy status; Z88.8 Allergy status to other drugs, medicaments and biological substances; Z91.011 Allergy to milk products; Z90.49 Acquired absence of other specified parts of digestive tract; Z87.440 Personal history of urinary (tract) infections
CPT/HCPCS: 36415; 71045; 71045-26; 80053; 84443; 84484; 85025; 93005; 93010; 99283; 99285-25

== ENCOUNTER 2018-08-17 07:35 | Emergency (ER) | payer MEDICAID ==
[2018-08-17 07:48] VITALS: BP 139/97
[2018-08-17] MEDS ORDERED: Albuterol/Ipratropium 3.0-0.5 MG/3 ML Neb Soln NEB ONE (08:20)
--- NOTE | 2018-08-17 08:20 | EDM.PDOC ---
ED HPI GENERAL MEDICAL PROBLEM - General Chief Complaint: Respiratory Problem Stated Complaint: COUGH AND SOB Time Seen by Provider: 08/17/18 08:15 Source of Information: Reports: Patient History Limitations: Reports: No Limitations - History of Present Illness INITIAL COMMENTS - FREE TEXT/NARRATIVE: 48-year-old female presents to the ED with a 2 week history of upper respiratory tract infection. She states she has had paroxysmal cough for most of that time but it's getting worse and more productive the last few days. Feeling febrile and diaphoretic at night. No hemoptysis. Phlegm is thick green in color. She recognizes significant nasal congestion and postnasal drip. She did lose her voice for a couple of days and today she is quite hoarse. She coughs throughout most of the night. Appetite has been poor. She can hear wheezing coming from her lungs when she lies down. Appetite has been poor. No diarrhea. Some near vomiting due to coughing so hard. Onset: Gradual Onset Date: 08/03/18 Duration: Week(s):, Getting Worse (Has not been feeling well for 2 weeks) Location: Reports: Chest (Increased chest congestion and cough with associated fever and chills.) Quality: Reports: Other Severity: Moderate (Paroxysmal severe productive cough) Improves with: Reports: None Worsens with: Reports: Other (Worse with exposure to cold air movement and lying flat.) Context: Reports: Sick Contact. Denies: Activity, Exercise, Lifting, Trauma, Other (Workplace) Associated Symptoms: Reports: Chest Pain, Cough, cough w sputum, Diaphoresis, Fever/Chills (Chills and fever), Headaches, Loss of Appetite, Malaise, Nausea/ Vomiting (Nausea times), Shortness of Breath, Other (Wheezing.). Denies: No Other Symptoms (Central chest pain particularly from coughing so much), Confusion, Syncope Treatments FIELD TRAINER: Reports: Other (see below) (Mucinex.) Chest Pain Score (Numeric/FACES): 6 - Related Data Allergies Allergy/AdvReac Type Severity Reaction Status Date / Time Iodinated Contrast- Oral and Allergy Mild Rash Verified 08/17/18 07:48 IV Dye [Iodinated Contrast Media - Oral and] adalimumab [From Humira] Allergy Redness Verified 08/17/18 07:48 lactose Allergy Anaphylactic Verified 08/17/18 07:48 Shock homeopathic drugs Allergy hayfever Uncoded 05/20/18 05:37 Home Meds: Home Meds Etanercept [Enbrel] 25 mg SQ WEEKLY 09/07/16 [History] Folic Acid 1 mg PO DAILY 04/26/17 [History] Gluc 2KCl/Chondr/Rajesh Hy/Hy Ac [Glucosamine & Chondroitin Cap] 1 cap PO DAILY [History] Ibuprofen 600 mg PO Q6H PRN #60 tablet 04/27/17 [Rx] Ondansetron HCl [Zofran] 4 mg PO Q8H PRN #30 tablet 04/27/17 [Rx] Doxycycline [Vibramycin] 100 mg PO BID #18 cap 08/17/18 [Rx] Hydrocodone/Chlorphen P-Stirex [Tussionex Pennkinetic Susp] 5 ml PO Q12H PRN # 60 ml 08/17/18 [Rx] Past Medical History - Past Health History Medical/Surgical History: Denies Medical/Surgical History HEENT History: Reports: Sinusitis, Other (See Below) Other HEENT History: left eye conjunctivitis, sinus infection, strep throat Cardiovascular History: Reports: None Respiratory History: Reports: None Gastrointestinal History: Reports: GERD, Other (See Below) Other Gastrointestinal History: colitis Genitourinary History: Reports: Renal Calculus, Other (See Below) Other Genitourinary History: dysuria 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: Reports: 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, Other (See Below) Other 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: left 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, heavy menses Musculoskeletal History: Reports: Arthritis, RA (Is on Enbrel for this.) Neurological History: Reports: Seizure Psychiatric History: Reports: Depression Endocrine/Metabolic History: Reports: None, Other (See Below) Other Endocrine/Metabolic History: 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 Hematologic History: Reports: None Immunologic History: Reports: Immunosuppression Other Immunologic History: enbrel use Oncologic (Cancer) History: Reports: None Dermatologic History: Reports: None - Past Surgical History Head Surgeries/Procedures: Reports: None Cardiovascular Surgical History: Reports: None Respiratory Surgical History: Reports: None GI Surgical History: Reports: Cholecystectomy Female Surgical History: Reports: Other (See Below) Other Female Surgeries/Procedures: UTI Endocrine Surgical History: Reports: None Musculoskeletal Surgical History: Reports: None Oncologic Surgical History: Reports: None Dermatological Surgical History: Reports: None Social & Family History - Family History Family Medical History: Noncontributory - Tobacco Use Smoking Status *Q: Never Smoker - Caffeine Use Caffeine Use: Reports: Coffee - Recreational Drug Use Recreational Drug Use: No - Living Situation & Occupation Living situation: Reports: , with Family Occupation: Unemployed ED ROS GENERAL - Review of Systems Review Of Systems: See Below Constitutional: Reports: Fever, Chills, Malaise, Weakness, Fatigue, Decreased Appetite, Weight Loss HEENT: Reports: Rhinitis. Denies: Glasses Respiratory: Reports: Shortness of Breath (Thick green nasal discharge. Pain in her maxillary sinuses.), Wheezing, Cough, Sputum. Denies: Hemoptysis Cardiovascular: Reports: Chest Pain, Dyspnea on Exertion, Lightheadedness. Denies: Blood Pressure Problem (Central chest pain from coughing so much), Claudication, Edema (Lightheadedness from coughing at times), Orthopnea Endocrine: Reports: Fatigue GI/Abdominal: Reports: Decreased Appetite, Nausea. Denies: Vomiting : Reports: No Symptoms Musculoskeletal: Reports: No Symptoms Skin: Reports: No Symptoms Neurological: Reports: No Symptoms Psychiatric: Reports: No Symptoms Hematologic/Lymphatic: Reports: No Symptoms Immunologic: Reports: No Symptoms ED EXAM, GENERAL - Physical Exam Exam: See Below Exam Limited By: No Limitations General Appearance: Alert, WD/WN, Other (Hoarse sounding voice. Vital signs show sats of 97% on room air. BP mildly elevated 139/97. Afebrile.) Eye Exam: Bilateral Eye: Normal Inspection Ears: Normal TMs, Other (She has some tenderness in the right ear canal but the TM is normal) Nose: Nasal Swelling, Nasal Drainage (Thick greenish nasal discharge packing up her nose bilaterally.) Throat/Mouth: Normal Lips, Normal Teeth, Normal Oropharynx Head: Atraumatic, Normocephalic Neck: Normal Inspection, Supple, Non-Tender, Full Range of Motion. No: Lymphadenopathy (L), Lymphadenopathy (R) Respiratory/Chest: No Respiratory Distress, No Accessory Muscle Use, Rhonchi, Wheezing (Rhonchi throughout the left lung field with mild expiratory wheezing. Left lung field.). No: Lungs Clear, Normal Breath Sounds, Chest Non-Tender Cardiovascular: Normal Peripheral Pulses, Regular Rate, Rhythm, No Edema, No Gallop, No Murmur, No Rub Peripheral Pulses: 3+: Posterior Tibial (L), Posterior Tibial (R), Dorsalis Pedis (L), Dorsalis Pedis (R) GI/Abdominal: Normal Bowel Sounds, Soft, Non-Tender, No Organomegaly, No Abnormal Bruit, No Mass, Pelvis Stable, Other Back Exam: Normal Inspection (Evidence of laparoscopic cholecystectomy surgery.) , Full Range of Motion. No: CVA Tenderness (L), CVA Tenderness (R) Extremities: Normal Inspection, Normal Range of Motion, Non-Tender, Normal Capillary Refill, Other Neurological: Alert, Oriented, CN II-XII Intact, Normal Cognition Psychiatric: Normal Affect (Currently her rheumatoid arthritis is in pretty good control she has some mild pain in her hands only.), Normal Mood Skin Exam: Warm, Dry, Intact, Normal Color, No Rash Course - Vital Signs Last Recorded V/S: Last Vital Signs Temp 36.9 C 08/17/18 07:42 Pulse 92 08/17/18 07:42 Resp 13 08/17/18 07:42 BP 139/97 H 08/17/18 07:42 Pulse Ox 97 08/17/18 08:20 - Orders/Labs/Meds Orders: Active Orders 24 hr Category Date Time Status RT Aerosol Therapy [RC] ASDIRECTED Care 08/17/18 08:20 Active Chest 1V Frontal [CR] Stat Exams 08/17/18 08:21 Taken Labs: Laboratory Tests 08/17/18 08/17/18 Range/Units 08:30 08:30 WBC 8.93 (3.98-10.04) K/mm3 RBC 4.82 (3.98-5.22) M/mm3 Hgb 13.8 (11.2-15.7) gm/L Hct 41.4 (34.1-44.9) % MCV 85.9 (79.4-94.8) fl MCH 28.6 (25.6-32.2) pg MCHC 33.3 (32.2-35.5) g/dl RDW Std Deviation 43.7 (36.4-46.3) fL Plt Count 273 (182-369) K/mm3 MPV 9.7 (9.4-12.3) fl Neutrophils % (Manual) 81 H (40-60) % Band Neutrophils % 0 (0-10) % Lymphocytes % (Manual) 12 L (20-40) % Atypical Lymphs % 0 % Monocytes % (Manual) 5 (2-10) % Eosinophils % (Manual) 2 (0.7-5.8) % Basophils % (Manual) 0 L (0.1-1.2) Platelet Estimate Adequate RBC Morph Comment Normal Sodium 142 (136-145) mEq/L Potassium 3.7 (3.5-5.1) mEq/L Chloride 108 H (98-107) mEq/L Carbon Dioxide 23 (21-32) mEq/L Anion Gap 14.7 (5-15) BUN 11 (7-18) mg/dL Creatinine 0.8 (0.55-1.02) mg/dL Est Cr Clr Drug Dosing 82.72 mL/min Estimated GFR (MDRD) > 60 (>60) mL/min BUN/Creatinine Ratio 13.8 L (14-18) Glucose 83 (74-106) mg/dL Calcium 8.9 (8.5-10.1) mg/dL Total Bilirubin 0.4 (0.2-1.0) mg/dL AST 15 (15-37) U/L ALT 17 (14-59) U/L Alkaline Phosphatase 63 (46-116) U/L C-Reactive Protein 3.7 H* (<1.0) mg/dL Total Protein 7.3 (6.4-8.2) g/dl Albumin 3.1 L (3.4-5.0) g/dl Globulin 4.2 gm/dL Albumin/Globulin Ratio 0.7 L (1-2) Meds: Medications Discontinued Medications Generic Name Dose Route Start Last Admin Trade Name Freq PRN Reason Stop Dose Admin Albuterol/Ipratropium 3 ml 08/17/18 08:20 08/17/18 08:44 Duoneb 3.0-0.5 Mg/3 Ml NEB 08/17/18 08:21 3 ml ONETIME ONE Administration Ceftriaxone Sodium 1 gm 08/17/18 09:18 08/17/18 09:24 Rocephin IM 08/17/18 09:19 1 gm ONETIME ONE Administration Lidocaine HCl 2 ml 08/17/18 09:20 08/17/18 09:27 Xylocaine-Mpf 1% INJECT 08/17/18 09:21 2 ml ONETIME ONE Administration - Radiology Interpretation Free Text/Narrative:: History of upper respiratory tract infection for 2 weeks with intermittent paroxysmal cough now having increased productive cough with wheezing and rhonchi particularly noted in her left lung field on exam. Associated increased hoarseness. Postop status near vomiting. Coughing most of the night. Decreased appetite plan 1 view chest x-ray to rule out pneumonia. Routine labs performed without blood cultures as she is afebrile at this time. Does appear to have a sinus infection with postnasal drip possibly contributing to cough as well. We' ll give her a DuoNeb while in the department. - Re-Assessments/Exams Free Text/Narrative Re-Assessment/Exam: 08/17/18 09:00: Chest x-ray reveals an infiltrate peribronchial perihilar area right side suggestive of a pneumonia. Treated with Rocephin 1 g intramuscularly. Will be discharged home on doxycycline 100 mg twice daily for 9 days. Tussionex cough syrup 5 mils every 12 hours. For cough relief. Follow- up with personal care physician if not markedly improved in 3-5 days time. No will be given to excuse her from work yesterday and today due to current illness. Departure - Departure Time of Disposition: : Disposition: Home, Self-Care 01 Condition: Fair Clinical Impression: Pneumonia Qualifiers: Pneumonia type: due to unspecified organism Laterality: right Lung location: middle lobe of lung Qualified Code(s): J18.1 - Lobar pneumonia, unspecified organism - Discharge Information *PRESCRIPTION DRUG MONITORING PROGRAM REVIEWED*: Not Applicable *COPY OF PRESCRIPTION DRUG MONITORING REPORT IN PATIENT FRIDA: Not Applicable Prescriptions: Doxycycline [Vibramycin] 100 mg PO BID #18 cap Hydrocodone/Chlorphen P-Stirex [Tussionex Pennkinetic Susp] 5 ml PO Q12H PRN # 60 ml PRN Reason: Cough relief Instructions: Community-Acquired Pneumonia, Adult, [id number] Referrals: Shanique Kaufman NP [Primary Care Provider] - Forms: ED Department Discharge, ED Return to Work/School Form Additional Instructions: Evaluation in the emergency department today in regards to 10 day history of paroxysmal cough gradually worsening. Associated sinus congestion with postnasal drip. Fever diffuse wheezing particularly through the left lung field. You're treated with DuoNeb to open up her lung tubes to help expectorate some of the phlegm. X-ray reveals an early pneumonia developing near the hilum of the right middle lobe of your lung. You're therefore treated with with Rocephin 1 g intramuscularly while in the emergency department. 2 minute home will be doxycycline 100 mg twice daily for the next 9 days to clear up infection. Tussionex cough syrup 5 mils every 12 hours as needed for cough relief. Suggest taking about an hour before bed as it takes about an hour to work. Note given to excuse her from work yesterday and today due to current illness. Expect gradual improvement over the next 72 hours. - My Orders Last 24 Hours: My Active Orders 08/17/18 08:20 RT Aerosol Therapy [RC] ASDIRECTED 08/17/18 08:21 Chest 1V Frontal [CR] Stat - Assessment/Plan Last 24 Hours: My Active Orders 08/17/18 08:20 RT Aerosol Therapy [RC] ASDIRECTED 08/17/18 08:21 Chest 1V Frontal [CR] Stat
[2018-08-17] MEDS ORDERED: cefTRIAXone 1 GM Vial IM ONE (09:18)
[2018-08-17] MEDS ORDERED: Lidocaine 1% PF 2 ML SDV INJECT ONE (09:20)
--- NOTE | 2018-08-18 08:26 | CR ---
Chest: Portable view of the chest was obtained. Comparison: Prior chest x-ray of 05/20/18. Heart size and mediastinum are normal. Lungs are clear. Slight scoliosis is noted within the spine. Impression: 1. No acute intrathoracic process is seen. Diagnostic code #2
== END 2018-08-17 09:37 | disposition home or self-care (01) ==
LOC: JD.ED 07:35
DX: J18.1 Lobar pneumonia, unspecified organism (principal); Z88.8 Allergy status to other drugs, medicaments and biological substances; Z91.011 Allergy to milk products
CPT/HCPCS: 36415; 71045; 80053; 85007; 85027; 86140; 94640; 96372; 99284; J0696; J2001; J7620-GY

== ENCOUNTER 2018-10-04 08:30 | Emergency (ER) | payer MEDICAID ==
--- NOTE | 2018-10-04 08:59 | EDM.PDOC ---
ED HPI GENERAL MEDICAL PROBLEM - General Chief Complaint: Lower Extremity Injury/Pain Stated Complaint: TOE INJURY Time Seen by Provider: 10/04/18 08:51 Source of Information: Reports: Patient, RN Notes Reviewed - History of Present Illness INITIAL COMMENTS - FREE TEXT/NARRATIVE: 48-year-old female tripped and fell stubbing her right great toe last evening. She continues to have a lot of discomfort primarily at the base of the right great toe. No deformity or swelling. There is pain at rest, worse with weightbearing. Also does have a sore right ankle with history of rheumatoid arthritis the ankle pain is no worse than usual. Left Toe-Hailux Pain Score (Numeric/FACES): 10 Right Toe-Hailux Pain Score (Numeric/FACES): 10 - Related Data Allergies Allergy/AdvReac Type Severity Reaction Status Date / Time Iodinated Contrast- Oral and Allergy Mild Rash Verified 10/04/18 08:39 IV Dye [Iodinated Contrast Media - Oral and] adalimumab [From Humira] Allergy Redness Verified 10/04/18 08:39 lactose Allergy Anaphylactic Verified 10/04/18 08:39 Shock homeopathic drugs Allergy hayfever Uncoded 10/04/18 08:39 Home Meds: Home Meds Etanercept [Enbrel] 25 mg SQ WEEKLY 09/07/16 [History] Folic Acid 1 mg PO DAILY 04/26/17 [History] Gluc 2KCl/Chondr/Rajesh Hy/Hy Ac [Glucosamine & Chondroitin Cap] 1 cap PO DAILY [History] Ibuprofen 600 mg PO Q6H PRN #60 tablet 04/27/17 [Rx] Cyclobenzaprine [Flexeril] 10 mg PO BEDTIME PRN 10/04/18 [History] traMADol [Ultram] 50 mg PO Q6H PRN #14 tab 10/04/18 [Rx] Past Medical History - Past Health History Medical/Surgical History: Denies Medical/Surgical History HEENT History: Reports: Sinusitis, Other (See Below) Other HEENT History: left eye conjunctivitis, sinus infection, strep throat Cardiovascular History: Reports: None Respiratory History: Reports: None Gastrointestinal History: Reports: GERD, Other (See Below) Other Gastrointestinal History: colitis Genitourinary History: Reports: Renal Calculus, Other (See Below) Other Genitourinary History: dysuria 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: 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, Other (See Below) 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: left 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, heavy menses Musculoskeletal History: Reports: Arthritis, RA (Is on Enbrel for this.) Neurological History: Reports: Seizure Psychiatric History: Reports: Depression Endocrine/Metabolic History: Reports: None, Other (See Below) Other Endocrine/Metabolic History: 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 Hematologic History: Reports: None Immunologic History: Reports: Immunosuppression Other Immunologic History: enbrel use Oncologic (Cancer) History: Reports: None Dermatologic History: Reports: None - Past Surgical History Head Surgeries/Procedures: Reports: None Cardiovascular Surgical History: Reports: None Respiratory Surgical History: Reports: None GI Surgical History: Reports: Cholecystectomy Female Surgical History: Reports: Other (See Below) Other Female Surgeries/Procedures: UTI Endocrine Surgical History: Reports: None Musculoskeletal Surgical History: Reports: None Oncologic Surgical History: Reports: None Dermatological Surgical History: Reports: None Social & Family History - Family History Family Medical History: Noncontributory - Caffeine Use Caffeine Use: Reports: Coffee - Living Situation & Occupation Living situation: Reports: , with Family Occupation: Unemployed Review of Systems - Review of Systems Review Of Systems: See Below Constitutional: Reports: No Symptoms Mouth/Throat: Reports: No Symptoms Respiratory: Reports: No Symptoms Cardiovascular: Denies: Chest Pain Musculoskeletal: Reports: Joint Pain (Base of R great toe) Neurological: Reports: No Symptoms ED EXAM, GENERAL - Physical Exam Exam: See Below General Appearance: Alert, Mild Distress Nose: Normal Inspection Head: Atraumatic Neck: Supple Respiratory/Chest: No Respiratory Distress Extremities: Other (There is tenderness at the base of the right great toe and also tenderness of the mid and distal great toe, foot is otherwise nontender, no visible swelling or deformity.) Skin Exam: Warm, Dry, Other (No open skin disruption) Course - Vital Signs Last Recorded V/S: Last Vital Signs Temp 98 F 10/04/18 10:10 Pulse 86 10/04/18 10:10 Resp 18 10/04/18 10:10 BP 139/95 H 10/04/18 10:10 Pulse Ox 98 10/04/18 10:10 - Orders/Labs/Meds Meds: Medications Discontinued Medications Generic Name Dose Route Start Last Admin Trade Name Freq PRN Reason Stop Dose Admin Tramadol HCl 50 mg 10/04/18 09:56 10/04/18 10:05 Ultram PO 10/04/18 09:57 50 mg ONETIME ONE Administration - Re-Assessments/Exams Free Text/Narrative Re-Assessment/Exam: 10/04/18 09:57 X-rays of toe show no acute fracture Departure - Departure Time of Disposition: 09:57 Disposition: Home, Self-Care 01 Condition: Fair Clinical Impression: Sprain of toe, great, right Qualifiers: Encounter type: initial encounter Qualified Code(s): S93.501A - Unspecified sprain of right great toe, initial encounter - Discharge Information Prescriptions: traMADol [Ultram] 50 mg PO Q6H PRN #14 tab PRN Reason: Pain Referrals: Shanique Kaufman NP [Primary Care Provider] - Forms: ED Department Discharge Additional Instructions: Rest, ice packs and elevation, Advil or ibuprofen 600 mg 2-3 times daily, you may take Tylenol in between doses for extra pain relief, you may take tramadol in addition if needed for severe pain not relieved by Tylenol and ibuprofen.
--- NOTE | 2018-10-04 09:38 | CR ---
Right first toe: Four views of the right first toe were obtained. Comparison: No previous study. Lucencies are seen within the distal phalanx of the first toe. This is felt to be due to several old erosions. Very small erosions are also seen within the distal proximal phalanx of the first toe. Please correlate if patient has any symptoms to suggest gout. Minimal joint space narrowing is seen within the first MTP joint. No acute fracture or dislocation is seen. Impression: 1. Nothing acute is seen. 2. Other nonacute findings as noted above. Diagnostic code #2
[2018-10-04] MEDS ORDERED: traMADol 50 MG Tab PO ONE (09:56)
[2018-10-04 10:19] VITALS: BP 139/95
== END 2018-10-04 10:15 | disposition home or self-care (01) ==
LOC: JD.ED 08:30
DX: S93.501A Unspecified sprain of right great toe, initial encounter (principal); M19.90 Unspecified osteoarthritis, unspecified site; M06.9 Rheumatoid arthritis, unspecified; Z90.49 Acquired absence of other specified parts of digestive tract; Z91.041 Radiographic dye allergy status; Z88.8 Allergy status to other drugs, medicaments and biological substances; W01.198A Fall on same level from slipping, tripping and stumbling with subsequent striking against other object, initial encounter
CPT/HCPCS: 73660; 99284; A9270; 99283

== ENCOUNTER 2018-11-02 12:38 | Emergency (ER) | payer MEDICAID ==
[2018-11-02 12:50] VITALS: BP 137/104
--- NOTE | 2018-11-02 15:08 | EDM.PDOC ---
ED HPI GENERAL MEDICAL PROBLEM - General Chief Complaint: Medication Administration Stated Complaint: REACTION TO MEDICATION Time Seen by Provider: 11/02/18 12:55 Source of Information: Reports: Patient History Limitations: Reports: No Limitations - History of Present Illness INITIAL COMMENTS - FREE TEXT/NARRATIVE: The patient presents with syncope. She is concerned this may be related to the flagyl she is on for bacterial vaginosis. She passed out yesterday and she has felt weak and light headed. She has no fever but she did have chills. She a slight headache. She has no chest pain or shortness of breath. She has no abdominal pain, nausea or vomiting. Onset: Sudden Duration: Day(s): (Yesterday) Severity: Mild Improves with: Reports: None Worsens with: Reports: None Associated Symptoms: Reports: Fever/Chills, Headaches. Denies: Chest Pain, Cough, Nausea/Vomiting, Shortness of Breath - Related Data Allergies Allergy/AdvReac Type Severity Reaction Status Date / Time Iodinated Contrast- Oral and Allergy Mild Rash Verified 11/02/18 12:46 IV Dye [Iodinated Contrast Media - Oral and] adalimumab [From Humira] Allergy Redness Verified 11/02/18 12:46 lactose Allergy Anaphylactic Verified 11/02/18 12:46 Shock homeopathic drugs Allergy hayfever Uncoded 11/02/18 12:46 Home Meds: Home Meds Etanercept [Enbrel] 25 mg SQ WEEKLY 09/07/16 [History] Folic Acid 1 mg PO DAILY 04/26/17 [History] Gluc 2KCl/Chondr/Rajesh Hy/Hy Ac [Glucosamine & Chondroitin Cap] 1 cap PO DAILY [History] Ibuprofen 600 mg PO Q6H PRN #60 tablet 04/27/17 [Rx] Cyclobenzaprine [Flexeril] 10 mg PO BEDTIME PRN 10/04/18 [History] traMADol [Ultram] 50 mg PO Q6H PRN #14 tab 10/04/18 [Rx] metroNIDAZOLE [Metrogel-Vaginal] 70 gm VG DAILY #5 gel.w.appl 11/02/18 [Rx] Past Medical History - Past Health History Medical/Surgical History: Denies Medical/Surgical History HEENT History: Reports: Sinusitis, Other (See Below) Other HEENT History: left eye conjunctivitis, sinus infection, strep throat Cardiovascular History: Reports: None Respiratory History: Reports: None Gastrointestinal History: Reports: GERD, Other (See Below) Other Gastrointestinal History: colitis Genitourinary History: Reports: Renal Calculus, Other (See Below) Other Genitourinary History: dysuria 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, Other (See Below) Other EMBROIDERY OPERATOR History: left 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, heavy menses Musculoskeletal History: Reports: Arthritis, RA Neurological History: Reports: Seizure Psychiatric History: Reports: Depression Endocrine/Metabolic History: Reports: None, Other (See Below) Other Endocrine/Metabolic History: 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 Hematologic History: Reports: None Immunologic History: Reports: Immunosuppression Other Immunologic History: enbrel use Oncologic (Cancer) History: Reports: None Dermatologic History: Reports: None - Infectious Disease History Infectious Disease History: Reports: Chicken Pox - Past Surgical History Head Surgeries/Procedures: Reports: None Cardiovascular Surgical History: Reports: None Respiratory Surgical History: Reports: None GI Surgical History: Reports: Cholecystectomy Female Surgical History: Reports: Other (See Below) Other Female Surgeries/Procedures: UTI Endocrine Surgical History: Reports: None Musculoskeletal Surgical History: Reports: None Oncologic Surgical History: Reports: None Dermatological Surgical History: Reports: None Social & Family History - Family History Family Medical History: Noncontributory - Tobacco Use Smoking Status *Q: Never Smoker - Caffeine Use Caffeine Use: Reports: Coffee - Recreational Drug Use Recreational Drug Use: No - Living Situation & Occupation Living situation: Reports: , with Family Occupation: Unemployed ED ROS GENERAL - Review of Systems Review Of Systems: See Below Constitutional: Reports: Chills. Denies: Fever HEENT: Reports: No Symptoms Respiratory: Reports: No Symptoms Cardiovascular: Reports: No Symptoms Endocrine: Reports: No Symptoms GI/Abdominal: Reports: No Symptoms : Reports: No Symptoms Musculoskeletal: Reports: No Symptoms Skin: Reports: No Symptoms Neurological: Reports: Dizziness, Headache ED EXAM, GENERAL - Physical Exam Exam: See Below Exam Limited By: No Limitations General Appearance: Alert, No Apparent Distress Ears: Normal External Exam Nose: Normal Inspection Head: Atraumatic, Normocephalic Neck: Normal Inspection Respiratory/Chest: No Respiratory Distress, Lungs Clear, Normal Breath Sounds Cardiovascular: Regular Rate, Rhythm, No Edema, No Murmur GI/Abdominal: Soft, Non-Tender, No Organomegaly, No Mass Back Exam: Normal Inspection Extremities: Normal Inspection EKG INTERPRETATION EKG Date: 11/02/18 Time: 13:39 Rhythm: NSR Rate (Beats/Min): 72 [place]: Normal P-Wave: Present QRS: Normal ST-T: Elevated (Normal early repol) QT: Normal Course - Vital Signs Last Recorded V/S: Last Vital Signs Temp 97.6 F 11/02/18 12:46 Pulse 98 11/02/18 12:46 Resp 18 11/02/18 12:46 BP 137/104 H 11/02/18 12:46 Pulse Ox 99 11/02/18 12:46 - Orders/Labs/Meds Orders: Active Orders 24 hr Category Date Time Status Cardiac Monitoring [RC] . DIRECTED Care 11/02/18 13:31 Active EKG Documentation Completion [RC] STAT Care 11/02/18 13:32 Active Labs: Laboratory Tests 11/02/18 11/02/18 Range/Units 13:40 13:40 WBC 3.90 L (3.98-10.04) K/mm3 RBC 4.91 (3.98-5.22) M/mm3 Hgb 14.3 (11.2-15.7) gm/L Hct 42.4 (34.1-44.9) % MCV 86.4 (79.4-94.8) fl MCH 29.1 (25.6-32.2) pg MCHC 33.7 (32.2-35.5) g/dl RDW Std Deviation 45.7 (36.4-46.3) fL Plt Count 287 (182-369) K/mm3 MPV 9.8 (9.4-12.3) fl Neut % (Auto) 54.5 (34.0-71.1) % Lymph % (Auto) 30.0 (19.3-51.7) % Gregg % (Auto) 11.8 (4.7-12.5) % Eos % (Auto) 2.6 (0.7-5.8) Baso % (Auto) 0.8 (0.1-1.2) % Neut # (Auto) 2.13 (1.56-6.13) K/mm3 Lymph # (Auto) 1.17 L (1.18-3.74) K/mm3 Gregg # (Auto) 0.46 H (0.24-0.36) K/mm3 Eos # (Auto) 0.10 (0.04-0.36) K/mm3 Baso # (Auto) 0.03 (0.01-0.08) K/mm3 Sodium 141 (136-145) mEq/L Potassium 3.9 (3.5-5.1) mEq/L Chloride 108 H (98-107) mEq/L Carbon Dioxide 24 (21-32) mEq/L Anion Gap 12.9 (5-15) BUN 17 (7-18) mg/dL Creatinine 1.0 (0.55-1.02) mg/dL Est Cr Clr Drug Dosing 66.18 mL/min Estimated GFR (MDRD) 59 (>60) mL/min BUN/Creatinine Ratio 17.0 (14-18) Glucose 92 (74-106) mg/dL Calcium 9.5 (8.5-10.1) mg/dL Magnesium 2.1 (1.8-2.4) mg/dl Total Bilirubin 0.4 (0.2-1.0) mg/dL AST 15 (15-37) U/L ALT 21 (14-59) U/L Alkaline Phosphatase 86 (46-116) U/L Troponin I < 0.017 (0.00-0.056) ng/mL Total Protein 7.5 (6.4-8.2) g/dl Albumin 3.7 (3.4-5.0) g/dl Globulin 3.8 gm/dL Albumin/Globulin Ratio 1.0 (1-2) - Re-Assessments/Exams Free Text/Narrative Re-Assessment/Exam: 11/02/18 15:07 I ordered an EKG and labs. Her EKG looks good. Her labs look good. I offered he some metro gel. She would like to try that. Departure - Departure Time of Disposition: 15:10 Disposition: Home, Self-Care 01 Condition: Good Clinical Impression: Bacterial vaginosis Syncope Qualifiers: Syncope type: unspecified Qualified Code(s): R55 - Syncope and collapse - Discharge Information *PRESCRIPTION DRUG MONITORING PROGRAM REVIEWED*: Not Applicable *COPY OF PRESCRIPTION DRUG MONITORING REPORT IN PATIENT FRIDA: Not Applicable Prescriptions: metroNIDAZOLE [Metrogel-Vaginal] 70 gm VG DAILY #5 gel.w.appl Referrals: Shanique Kaufman NP [Primary Care Provider] - 1 Week Forms: ED Department Discharge, ED Return to Work/School Form Additional Instructions: Stop the flagyl and try the jell daily for 5 days. Drink plenty of fluids. - My Orders Last 24 Hours: My Active Orders 11/02/18 13:31 Cardiac Monitoring [RC] . DIRECTED 11/02/18 13:32 EKG Documentation Completion [RC] STAT - Assessment/Plan Last 24 Hours: My Active Orders 11/02/18 13:31 Cardiac Monitoring [RC] . DIRECTED 11/02/18 13:32 EKG Documentation Completion [RC] STAT
== END 2018-11-02 15:19 | disposition home or self-care (01) ==
LOC: JD.ED 12:38
DX: N76.0 Acute vaginitis (principal); B96.89 Other specified bacterial agents as the cause of diseases classified elsewhere; R55 Syncope and collapse; Z88.8 Allergy status to other drugs, medicaments and biological substances; Z91.011 Allergy to milk products; Z79.899 Other long term (current) drug therapy
CPT/HCPCS: 36415; 80053; 83735; 84484; 85025; 93005; 93010; 99283

== ENCOUNTER 2019-05-14 18:09 | Emergency (ER) | payer MEDICAID ==
[2019-05-14 18:24] VITALS: BP 151/92; PULSE 97
--- NOTE | 2019-05-14 18:45 | EDM.PDOC ---
ED HPI GENERAL MEDICAL PROBLEM - General Chief Complaint: Lower Extremity Injury/Pain Stated Complaint: FALL (LEFT LEG PAIN/RIGHT WRIST INJURY) Time Seen by Provider: 05/14/19 18:23 Source of Information: Reports: Patient History Limitations: Reports: No Limitations - History of Present Illness INITIAL COMMENTS - FREE TEXT/NARRATIVE: Patient is a 48-year-old female who presents with left knee and right wrist pain after falling 1 week ago. She states that when she was falling she reached out to catch herself on a door and hit her wrist against an object. She states she also twisted her knee, however she did not fall directly on the knee. She denies any previous injury to these extremities; however, the pt does have RA. States that she has been using Aleve and ibuprofen as needed for pain. She has not taken any of his medications yet today. She has been able to bear weight on her left leg, however she states "barely ". Left Leg Pain Score (Numeric/FACES): 10 - Related Data Allergies Allergy/AdvReac Type Severity Reaction Status Date / Time Iodinated Contrast Media Allergy Mild Rash Verified 12/05/18 15:56 [Iodinated Contrast Media - Oral and] adalimumab [From Humira] Allergy Redness Verified 12/05/18 15:56 lactose Allergy Anaphylactic Verified 12/05/18 15:56 Shock homeopathic drugs Allergy hayfever Uncoded 12/05/18 16:12 Home Meds: Home Meds Folic Acid 1 mg PO DAILY 04/26/17 [History] Glucosam/Chondr/Collagn/Hyalur [Glucosamine & Chondroitin Cap] 1 cap PO DAILY [History] Ibuprofen 600 mg PO Q6H PRN #60 tablet 04/27/17 [Rx] traMADol [Ultram] 50 mg PO Q6H PRN #14 tab 10/04/18 [Rx] Cyclobenzaprine [Flexeril] 10 mg PO BEDTIME 12/05/18 [History] Dexlansoprazole [Dexilant] 60 mg PO DAILY 12/05/18 [History] Doxycycline [Vibramycin] 100 mg PO BID #24 cap 12/05/18 [Rx] Etanercept [Enbrel] 50 mg PO WEEKLY 12/05/18 [History] Fluticasone Propionate [Clarispray] 1 spray INH BID 12/05/18 [History] Folic Acid 2 mg PO DAILY 12/05/18 [History] Past Medical History - Past Health History Medical/Surgical History: Denies Medical/Surgical History HEENT History: Reports: Sinusitis, Other (See Below) Other HEENT History: left eye conjunctivitis, sinus infection, strep throat Cardiovascular History: Reports: None Respiratory History: Reports: None Gastrointestinal History: Reports: GERD, Other (See Below) Other Gastrointestinal History: colitis Genitourinary History: Reports: Renal Calculus, Other (See Below) Other Genitourinary History: dysuria 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: Reports: 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, Other (See Below) Other 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: left 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, heavy menses Musculoskeletal History: Reports: Arthritis, RA Neurological History: Reports: Seizure Psychiatric History: Reports: Depression Endocrine/Metabolic History: Reports: None, Other (See Below) Other Endocrine/Metabolic History: 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 Hematologic History: Reports: None Immunologic History: Reports: Immunosuppression Other Immunologic History: enbrel use Oncologic (Cancer) History: Reports: None Dermatologic History: Reports: None - Infectious Disease History Infectious Disease History: Reports: Chicken Pox - Past Surgical History Head Surgeries/Procedures: Reports: None Cardiovascular Surgical History: Reports: None Respiratory Surgical History: Reports: None GI Surgical History: Reports: Cholecystectomy Female Surgical History: Reports: Other (See Below) Other Female Surgeries/Procedures: UTI Endocrine Surgical History: Reports: None Musculoskeletal Surgical History: Reports: None Oncologic Surgical History: Reports: None Dermatological Surgical History: Reports: None Social & Family History - Family History Family Medical History: Noncontributory - Tobacco Use Smoking Status *Q: Never Smoker - Caffeine Use Caffeine Use: Reports: None - Recreational Drug Use Recreational Drug Use: No - Living Situation & Occupation Living situation: Reports: , with Family Occupation: Unemployed Review of Systems - Review of Systems Review Of Systems: See Below Constitutional: Reports: No Symptoms Eyes: Reports: No Symptoms Ears: Reports: No Symptoms Nose: Reports: No Symptoms Mouth/Throat: Reports: No Symptoms Respiratory: Reports: No Symptoms Cardiovascular: Reports: No Symptoms GI/Abdominal: Reports: No Symptoms Genitourinary: Reports: No Symptoms Musculoskeletal: Reports: Other (Left knee and right wrist pain) Skin: Reports: No Symptoms Neurological: Reports: No Symptoms Psychiatric: Reports: No Symptoms ED EXAM, GENERAL - Physical Exam Exam: See Below Exam Limited By: No Limitations General Appearance: Alert, WD/WN, No Apparent Distress Respiratory/Chest: No Respiratory Distress, Lungs Clear, Normal Breath Sounds, No Accessory Muscle Use, Chest Non-Tender Cardiovascular: Normal Peripheral Pulses, Regular Rate, Rhythm, No Edema, No Murmur Extremities: Other (Mild edema to left knee. Tender medial to the patella. Negative anterior and posterior drawer test. Negative valgus and varus stress test. Mild swelling to right wrist. Positive tenderness to the snuffbox.) Course - Vital Signs Last Recorded V/S: Last Vital Signs Temp 97.5 F 05/14/19 18:21 Pulse 97 05/14/19 18:21 Resp 18 05/14/19 18:21 BP 151/92 H 05/14/19 18:21 Pulse Ox 100 05/14/19 18:21 - Orders/Labs/Meds Orders: Active Orders 24 hr Category Date Time Status DME for Discharge [COMM] Routine Oth 05/14/19 19:08 Ordered Meds: Medications Discontinued Medications Generic Name Dose Route Start Last Admin Trade Name Kavita PRN Reason Stop Dose Admin Ketorolac Tromethamine 60 mg 05/14/19 18:46 05/14/19 19:03 Toradol IM 05/14/19 18:47 60 mg ONETIME ONE Administration - Re-Assessments/Exams Free Text/Narrative Re-Assessment/Exam: Patient's x-rays show no acute fractures. She does have significant arthritic changes to her wrists, which she states she is aware of due to her RA. Pt was able to ambulate in the room without difficulty. We will provide her with a knee brace, as well as a wrist brace for comfort. She does have an appointment coming up with her "bone doctor "and states if her symptoms aren't improving she will have them pursue further imaging such as an MRI of her knee. Discharge instructions as noted. Departure - Departure Time of Disposition: 19:10 Disposition: Home, Self-Care 01 Condition: Fair Clinical Impression: Wrist contusion Qualifiers: Encounter type: initial encounter Laterality: right Qualified Code(s): S60.211A - Contusion of right wrist, initial encounter Knee strain Qualifiers: Encounter type: initial encounter Laterality: left Qualified Code(s): S86.912A - Strain of unspecified muscle(s) and tendon(s) at lower leg level, left leg, initial encounter - Discharge Information *PRESCRIPTION DRUG MONITORING PROGRAM REVIEWED*: No *COPY OF PRESCRIPTION DRUG MONITORING REPORT IN PATIENT FRIDA: No Instructions: Contusion, Knee Sprain, Adult, [id number] Referrals: Shanique Kaufman NP [Primary Care Provider] - Forms: ED Department Discharge Additional Instructions: You were seen in the emergency Department today for right wrist pain and left knee pain after having a fall approximately one week ago. X-rays did not show any obvious fractures of the joints. As we discussed, x-rays will not show us the ligaments in the knee so if you continue to have pain without improvement you may need to be scheduled for an MRI. You have been provided with a wrist splint and a knee brace for comfort. Wear these until your symptoms improve. You may also continue to take ibuprofen or Aleve as needed for pain. Applying ice for 20 minutes every 2 hours to the joints may help with the pain and swelling. If your symptoms fail to improve as expected, I recommend that she follow up with her primary care provider to have an MRI scheduled. If you experience any new or worsening symptoms, please not hesitate to return to the emergency department. Sepsis Event Note - Evaluation Sepsis Screening Result: No Definite Risk - Focused Exam Date Exam was Performed: 05/15/19 Time Exam was Performed: 07:14 - My Orders Last 24 Hours: My Active Orders 05/14/19 19:08 DME for Discharge [COMM] Routine - Assessment/Plan Last 24 Hours: My Active Orders 05/14/19 19:08 DME for Discharge [COMM] Routine
[2019-05-14] MEDS ORDERED: Ketorolac 60 MG/2 ML SDV IM ONE (18:46)
--- NOTE | 2019-05-14 19:23 | CR ---
Right wrist: 4 views the right wrist were obtained. Comparison: No previous wrist exam. Severe joint space narrowing is noted between the distal radius and the proximal carpal bones. No acute fracture, dislocation or other bony abnormality is seen. Impression: 1. Severe joint space narrowing between the radius and carpal bones. 2. No additional abnormality is seen on right wrist exam. Diagnostic code #3 This report was dictated in [place] Standard Time
--- NOTE | 2019-05-14 19:23 | CR ---
Left knee: 4 views of the left knee were obtained. Comparison: No prior knee exam. Moderate medial joint space narrowing is seen. Lateral joint space is preserved. Chondrocalcinosis appears to be present within the lateral meniscus. Questionable small joint effusion. No acute fracture, dislocation or other bony abnormality is seen. Impression: 1. Degenerative change as noted above. Questionable small joint effusion. 2. Nothing acute is appreciated. Diagnostic code #2 This report was dictated in [place] Standard Time
== END 2019-05-14 19:41 | disposition home or self-care (01) ==
LOC: JD.ED 18:09
DX: S86.812A Strain of other muscle(s) and tendon(s) at lower leg level, left leg, initial encounter (principal); S60.211A Contusion of right wrist, initial encounter; K21.9 Gastro-esophageal reflux disease without esophagitis; M06.9 Rheumatoid arthritis, unspecified; Z79.899 Other long term (current) drug therapy; Z88.8 Allergy status to other drugs, medicaments and biological substances; Z91.011 Allergy to milk products; Z91.041 Radiographic dye allergy status; W01.198A Fall on same level from slipping, tripping and stumbling with subsequent striking against other object, initial encounter; X50.1XXA Overexertion from prolonged static or awkward postures, initial encounter
CPT/HCPCS: 73110; 73564; 96372; 99283; J1885

== ENCOUNTER 2019-07-23 17:25 | Emergency (ER) | payer MEDICAID ==
[2019-07-23 17:41] VITALS: BP 151/104; PULSE 99
--- NOTE | 2019-07-23 17:49 | EDM.PDOC ---
ED HPI GENERAL MEDICAL PROBLEM - General Chief Complaint: Lower Extremity Injury/Pain Stated Complaint: RIGHT LEG SWOLLEN Time Seen by Provider: 07/23/19 17:47 Source of Information: Reports: Patient, RN Notes Reviewed History Limitations: Reports: No Limitations - History of Present Illness INITIAL COMMENTS - FREE TEXT/NARRATIVE: Patient is a 49-year-old female who presents to the ED for right lower leg swelling. Patient notes that this is been present since her birthday on [birth year]. She has appreciated increased swelling from the ankle joint to her groin. She does state that the pain in her leg is also pretty intense, she does note a history of RA, but this pain is much different than her regular RA pain. Patient denies any trauma to the area. Patient is not complaining of any chest pain, shortness of breath, nausea/vomiting/diarrhea. Patient states that she did take her normal medications for her RA, to include a muscle relaxer and diclofenac and this did not seem to help the pain. Patient notes that she is scheduled to see her specialist on August 11. Right Lower Leg Pain Score (Numeric/FACES): 10 - Related Data Allergies Allergy/AdvReac Type Severity Reaction Status Date / Time Iodinated Contrast Media Allergy Mild Rash Verified 07/23/19 17:41 [Iodinated Contrast Media - Oral and] adalimumab [From Humira] Allergy Redness Verified 07/23/19 17:41 lactose Allergy Anaphylactic Verified 07/23/19 17:41 Shock homeopathic drugs Allergy hayfever Uncoded 12/05/18 16:12 Home Meds: Home Meds Folic Acid 1 mg PO DAILY 04/26/17 [History] Glucosam/Chondr/Collagn/Hyalur [Glucosamine & Chondroitin Cap] 1 cap PO DAILY [History] Ibuprofen 600 mg PO Q6H PRN #60 tablet 04/27/17 [Rx] Cyclobenzaprine [Flexeril] 10 mg PO BEDTIME 12/05/18 [History] Dexlansoprazole [Dexilant] 60 mg PO DAILY 12/05/18 [History] Folic Acid 2 mg PO DAILY 12/05/18 [History] Acetaminophen/oxyCODONE [Percocet 325-5 MG] 1 each PO Q6H PRN #12 tab 07/23/19 [ Rx] predniSONE 20 mg PO ASDIRECTED #15 tab 07/23/19 [Rx] Past Medical History HEENT History: Reports: Sinusitis, Other (See Below) Other HEENT History: left eye conjunctivitis, sinus infection, strep throat Gastrointestinal History: Reports: GERD, Other (See Below) Other Gastrointestinal History: colitis Genitourinary History: Reports: Renal Calculus, Other (See Below) Other Genitourinary History: dysuria 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, 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 (See Below) 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: left 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, 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 Musculoskeletal History: Reports: Arthritis, RA Neurological History: Reports: Seizure Psychiatric History: Reports: Depression Endocrine/Metabolic History: Reports: Other (See Below) Other Endocrine/Metabolic History: immunocompromised due to Enbrel injections Immunologic History: Reports: Immunosuppression Other Immunologic History: enbrel use - Infectious Disease History Infectious Disease History: Reports: Chicken Pox - Past Surgical History GI Surgical History: Reports: Cholecystectomy Female Surgical History: Reports: Other (See Below) Other Female Surgeries/Procedures: UTI Social & Family History - Family History Family Medical History: Noncontributory - Caffeine Use Caffeine Use: Reports: None - Living Situation & Occupation Living situation: Reports: , with Family Occupation: Unemployed Review of Systems - Review of Systems Review Of Systems: Comprehensive ROS is negative, except as noted in HPI. ED EXAM, GENERAL - Physical Exam Exam: See Below Exam Limited By: No Limitations General Appearance: Alert, WD/WN, No Apparent Distress Eye Exam: Bilateral Eye: EOMI, Normal Inspection, PERRL Ears: Normal External Exam Throat/Mouth: Normal Inspection, Normal Lips, Normal Teeth, Normal Gums, Normal Oropharynx, Normal Voice, No Airway Compromise Head: Atraumatic, Normocephalic Neck: Normal Inspection Respiratory/Chest: No Respiratory Distress, Lungs Clear, Normal Breath Sounds, No Accessory Muscle Use, Chest Non-Tender Cardiovascular: Normal Peripheral Pulses, Regular Rate, Rhythm, No Murmur GI/Abdominal: Normal Bowel Sounds, Soft, Non-Tender, No Distention, No Mass Extremities: Normal Capillary Refill, Myron's Sign (positive on R leg), Leg Pain (entire right leg is swollen from ankle to groin, painful to touch) Neurological: Alert, Oriented, Normal Cognition, No Motor/Sensory Deficits Psychiatric: Normal Affect, Normal Mood Skin Exam: Warm, Dry, Intact, Normal Color, No Rash Course - Vital Signs Last Recorded V/S: Last Vital Signs Temp 98.6 F 07/23/19 17:35 Pulse 99 07/23/19 17:35 Resp 20 07/23/19 17:35 BP 151/104 H 07/23/19 17:35 Pulse Ox 99 07/23/19 17:35 - Orders/Labs/Meds Meds: Medications Discontinued Medications Generic Name Dose Route Start Last Admin Trade Name Kavita PRN Reason Stop Dose Admin Hydromorphone HCl 0.5 mg 07/23/19 18:01 07/23/19 18:58 Dilaudid IM 07/23/19 18:02 0.5 mg ONETIME ONE Administration - Re-Assessments/Exams Free Text/Narrative Re-Assessment/Exam: 07/23/19 18:13 Patient presents to the ED for evaluation of her right lower leg swelling and pain. Have ordered 0.5mg IM Dilaudid for pain management, and will order an ultrasound of the leg to evaluate for the possibility of a DVT. 07/23/19 19:18 Patient ultrasound is back, demonstrates a popliteal cyst, but no DVT. I will provide the patient with a course of prednisone, and discharged home at this time. Departure - Departure Time of Disposition: 19:20 Disposition: Home, Self-Care 01 Condition: Fair Clinical Impression: Swollen leg Carreno's cyst of knee Qualifiers: Laterality: right Qualified Code(s): M71.21 - Synovial cyst of popliteal space [Carreno], right knee - Discharge Information *PRESCRIPTION DRUG MONITORING PROGRAM REVIEWED*: No *COPY OF PRESCRIPTION DRUG MONITORING REPORT IN PATIENT FRIDA: No Instructions: Carreno Cyst Referrals: Shanique Kaufman NP [Primary Care Provider] - Forms: ED Department Discharge Additional Instructions: You were evaluated in the ER today regarding your swollen right leg. Your ultrasound demonstrates no sign of a DVT, however it does show a Carreno's cyst, which is a collection of fluid on the back your knee, that could likely be causing most of the pain in your leg. Treatment for this will be a course of steroids, 1 will be provided to you, please take as directed. Recommend you elevate the leg as much as possible over the next few days to help relieve the swelling, you may use heat packs as well. Please try to keep active, so you do not develop a blood clot in your leg. You were given a few tablets of pain medication for pain not relieved by Tylenol alone. Please return to the ER at any time if symptoms change or worsen. Sepsis Event Note - Evaluation Sepsis Screening Result: No Definite Risk - Focused Exam Vital Signs: Vital Signs Temp Pulse Resp BP Pulse Ox 07/23/19 17:35 98.6 F 99 20 151/104 H 99 Date Exam was Performed: 07/23/19 Time Exam was Performed: 19:18
[2019-07-23] MEDS ORDERED: HYDROmorphone 0.5 MG/0.5 ML Syringe IM ONE (18:01)
--- NOTE | 2019-07-23 19:09 | US ---
Right lower extremity deep venous ultrasound: Duplex and color Doppler evaluation was obtained of the right common femoral, proximal greater saphenous, superficial femoral, popliteal, posterior tibial and peroneal veins. Findings: Normal phasic flow, augmentation and compression is seen. Popliteal cyst is noted posterior to the knee measuring 11.9 x 1.8 x 2.1 cm. Impression: 1. Popliteal cyst. 2. No findings of deep venous thrombosis within the right lower extremity or within left common femoral vein. Diagnostic code #3 Study was dictated in MDT
== END 2019-07-23 20:00 | disposition home or self-care (01) ==
LOC: JD.ED 17:25
DX: M71.21 Synovial cyst of popliteal space [Baker], right knee (principal); Z91.041 Radiographic dye allergy status
CPT/HCPCS: 93971; 96372; 99283; J1170

== ENCOUNTER 2019-08-17 17:23 | Emergency (ER) | payer MEDICAID ==
[2019-08-17 17:41] VITALS: BP 136/89; PULSE 123
--- NOTE | 2019-08-17 17:43 | EDM.PDOC ---
ED HPI GENERAL MEDICAL PROBLEM - General Chief Complaint: Lower Extremity Injury/Pain Stated Complaint: SWOLLEN RIGHT LEG Time Seen by Provider: 08/17/19 17:32 Source of Information: Reports: Patient History Limitations: Reports: No Limitations - History of Present Illness Onset: Gradual Duration: Day(s):, Week(s):, Getting Worse Location: Reports: Lower Extremity, Left, Lower Extremity, Right Quality: Reports: Ache, Throbbing Improves with: Reports: None Worsens with: Reports: None Context: Reports: Activity Associated Symptoms: Denies: Chest Pain, Cough (History of rheumatoid eyes presents with increasing joint pains. Mostly in both knees bilaterally, increasing swelling noted, no fall trauma or injury. No fevers chills or sweats no headaches no sore throat no coughing or cold symptoms. Patient has been on biologic, had been on Enbrel before but now she has a diagnosis of Crohn 's and therefore has been switched over to a new medication over the last 4 weeks. Her last dose was August 13. She can see her instrumentation fitter since there is coronavirus at present. She lives with her 17-year-old son, does have family in town with a daughter and a granddaughter. 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 otherwise no coronavirus contacts.), Diaphoresis , Fever/Chills, Headaches, Loss of Appetite, Nausea/Vomiting, Rash, Shortness of Breath - Related Data Allergies Allergy/AdvReac Type Severity Reaction Status Date / Time Iodinated Contrast Media Allergy Mild Rash Verified 07/23/19 17:41 [Iodinated Contrast Media - Oral and] adalimumab [From Humira] Allergy Redness Verified 07/23/19 17:41 lactose Allergy Anaphylactic Verified 07/23/19 17:41 Shock homeopathic drugs Allergy hayfever Uncoded 12/05/18 16:12 Home Meds: Home Meds Folic Acid 1 mg PO DAILY 04/26/17 [History] Glucosam/Chondr/Collagn/Hyalur [Glucosamine & Chondroitin Cap] 1 cap PO DAILY [History] Ibuprofen 600 mg PO Q6H PRN #60 tablet 04/27/17 [Rx] Cyclobenzaprine [Flexeril] 10 mg PO BEDTIME 12/05/18 [History] Dexlansoprazole [Dexilant] 60 mg PO DAILY 12/05/18 [History] Folic Acid 2 mg PO DAILY 12/05/18 [History] Acetaminophen/oxyCODONE [Percocet 325-5 MG] 1 each PO Q6H PRN #12 tab 07/23/19 [ Rx] predniSONE 20 mg PO ASDIRECTED #15 tab 07/23/19 [Rx] predniSONE [Prednisone] 50 mg PO DAILY #5 tablet 08/17/19 [Rx] Past Medical History - Past Health History Medical/Surgical History: Denies Medical/Surgical History HEENT History: Reports: Sinusitis, Other (See Below) Other HEENT History: left eye conjunctivitis, sinus infection, strep throat Cardiovascular History: Reports: None Respiratory History: Reports: None Gastrointestinal History: Reports: GERD, Other (See Below) Other Gastrointestinal History: colitis Genitourinary History: Reports: Renal Calculus, Other (See Below) Other Genitourinary History: dysuria 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 History: Reports: 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, Other (See Below) Other 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 History: left 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, heavy menses Musculoskeletal History: Reports: Arthritis, RA Neurological History: Reports: Seizure Psychiatric History: Reports: Depression Endocrine/Metabolic History: Reports: Other (See Below) Other Endocrine/Metabolic History: immunocompromised due to Enbrel injections Hematologic History: Reports: None Immunologic History: Reports: Immunosuppression Other Immunologic History: enbrel use Oncologic (Cancer) History: Reports: None Dermatologic History: Reports: None - Infectious Disease History Infectious Disease History: Reports: Chicken Pox - Past Surgical History GI Surgical History: Reports: Cholecystectomy Female Surgical History: Reports: Other (See Below) Other Female Surgeries/Procedures: UTI Social & Family History - Family History Family Medical History: Noncontributory - Caffeine Use Caffeine Use: Reports: None Caffeine Use Comment: Not daily - Living Situation & Occupation Living situation: Reports: , with Family Occupation: Unemployed Review of Systems - Review of Systems Review Of Systems: See Below Constitutional: Denies: Chills, Diaphoresis, Fever, Weakness Nose: Denies: Congestion Mouth/Throat: Denies: Throat Swelling, Difficulty Swallowing Respiratory: Reports: No Symptoms Cardiovascular: Reports: No Symptoms GI/Abdominal: Reports: No Symptoms Genitourinary: Reports: No Symptoms Musculoskeletal: Reports: Joint Pain, Joint Swelling. Denies: Muscle Pain Skin: Reports: No Symptoms Neurological: Reports: No Symptoms Psychiatric: Reports: No Symptoms ED EXAM, GENERAL - Physical Exam Exam: See Below Exam Limited By: No Limitations General Appearance: Alert, WD/WN, No Apparent Distress Respiratory/Chest: No Respiratory Distress, Lungs Clear Cardiovascular: Normal Peripheral Pulses, Regular Rate, Rhythm, No Edema GI/Abdominal: Normal Bowel Sounds, Soft, Non-Tender Extremities: Joint Swelling Neurological: Alert, Oriented, No Motor/Sensory Deficits Psychiatric: Normal Affect (Lateral knees with decreased range of motion secondary to him some swelling bilaterally right side greater than left. No swelling in the calfs or legs, no edema noted, distal dorsalis pedis and posterior tibial pulses are intact equal bilaterally no redness or warmth, no red streaking. No hip pain or groin pain. No low back pain nothing that is radicular.) Course - Re-Assessments/Exams Free Text/Narrative Re-Assessment/Exam: 08/17/19 17:52 Patient with history of rheumatoid arthritis suspect flare. Doubt infection, does not seem to have any coronavirus symptoms either. We will treat her with a dose of Decadron 10 mg IM followed by prednisone 50 mg 1 daily with food #5 no refills follow-up with a instrumentation fitter, return precautions given. At present doubt infection, doubt gout, no specific injury or knee derangement otherwise noted. Departure - Departure Time of Disposition: 17:53 Disposition: Home, Self-Care 01 Condition: Fair Clinical Impression: Rheumatoid arthritis flare, Knee pain - Discharge Information *PRESCRIPTION DRUG MONITORING PROGRAM REVIEWED*: Not Applicable Instructions: Acute Knee Pain, Adult, Arthritis, [id number] Referrals: Shanique Kaufman NP [Primary Care Provider] - Additional Instructions: May try ice or heat to the areas, take prednisone 50 mg once a day #5 no refills take with food. Follow-up with your instrumentation fitter in [place]. Return if increasing swelling, increasing pain, fevers, or redness, worse
[2019-08-17] MEDS ORDERED: Dexamethasone 10 MG/ML SDV IM ONE (17:52)
== END 2019-08-17 18:16 | disposition home or self-care (01) ==
LOC: JD.ED 17:23
DX: M06.9 Rheumatoid arthritis, unspecified (principal); K21.9 Gastro-esophageal reflux disease without esophagitis; Z91.041 Radiographic dye allergy status; Z91.018 Allergy to other foods; Z79.899 Other long term (current) drug therapy
CPT/HCPCS: 96372; 99283; J1100

== ENCOUNTER 2020-01-14 19:38 | Emergency (ER) | payer MEDICAID ==
[2020-01-14 20:15] VITALS: BP 135/91; PULSE 88
--- NOTE | 2020-01-14 20:41 | EDM.PDOC ---
ED HPI GENERAL MEDICAL PROBLEM - General Chief Complaint: Fever Stated Complaint: FEVER/ACHES/COUGH/HEADACHE Time Seen by Provider: 01/14/20 20:01 Source of Information: Reports: Patient History Limitations: Reports: No Limitations - History of Present Illness INITIAL COMMENTS - FREE TEXT/NARRATIVE: Patient is a 49-year-old female presenting to the emergency department with com plaints of generalized body aches, fatigue, cough, cold sweats, wheezing, and shortness of breath that has been occurring intermittently over the last few days. Patient is on immunosuppressants due to her Crohn's disease and she states that her son has high anxiety regarding her health status. Patient states that she has been using ibuprofen for the last few days to treat her symptoms, however she was feeling better today so she did not take any. She is afebrile on triage. Oxygen saturation was 100% on room air. She states that her chest feels somewhat tight when she takes a deep breath. She does have an albuterol inhaler that was previously prescribed to her that she has been using with some relief. She denies any vomiting, abdominal pain, or diarrhea but does state that she has been slightly nauseous and had a decreased appetite. She has not had a known fever since she does not have a thermometer at home, however the states she has had cold sweats intermittently. Treatments IMMIGRATION ASSOCIATE: Reports: NSAIDS Generalized Pain Score (Numeric/FACES): 9 - Related Data Allergies Allergy/AdvReac Type Severity Reaction Status Date / Time Iodinated Contrast Media Allergy Mild Rash Verified 08/17/19 18:27 [Iodinated Contrast Media - Oral and] adalimumab [From Humira] Allergy Redness Verified 08/17/19 18:27 lactose Allergy Anaphylactic Verified 08/17/19 18:27 Shock Home Meds: Home Meds Glucosam/Chondr/Collagn/Hyalur [Glucosamine & Chondroitin Cap] 1 cap PO DAILY 04/26/17 [History] Cyclobenzaprine [Flexeril] 10 mg PO BEDTIME 12/05/18 [History] Dexlansoprazole [Dexilant] 60 mg PO DAILY 12/05/18 [History] Folic Acid 2 mg PO DAILY 12/05/18 [History] Albuterol Sulfate [Albuterol Sulfate Hfa] 2 inhalation INH ASDIRECTED PRN 01/14/20 [History] Ibuprofen 400 mg PO Q6H PRN 01/14/20 [History] Methotrexate 2.5 mg PO Q7D 01/14/20 [History] Ustekinumab [Stelara] 90 mg SQ ASDIRECTED 01/14/20 [History] Past Medical History - Past Health History Medical/Surgical History: Denies Medical/Surgical History HEENT History: Reports: Sinusitis, Other (See Below) Other HEENT History: left eye conjunctivitis, sinus infection, strep throat Cardiovascular History: Reports: None Respiratory History: Reports: None Gastrointestinal History: Reports: Cholelithiasis, GERD, Other (See Below) Other Gastrointestinal History: colitis Genitourinary History: Reports: Renal Calculus, Other (See Below) Other Genitourinary History: dysuria 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 History: Reports: 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, Other (See Below) Other 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 History: left 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, heavy menses Musculoskeletal History: Reports: Arthritis, RA Neurological History: Reports: Seizure Psychiatric History: Reports: Depression Endocrine/Metabolic History: Reports: Other (See Below) Other Endocrine/Metabolic History: immunocompromised due to Enbrel injections Hematologic History: Reports: None Immunologic History: Reports: Immunosuppression Other Immunologic History: enbrel use Oncologic (Cancer) History: Reports: None Dermatologic History: Reports: None - Infectious Disease History Infectious Disease History: Reports: Chicken Pox - Past Surgical History Head Surgeries/Procedures: Reports: None GI Surgical History: Reports: Cholecystectomy Female Surgical History: Reports: Other (See Below) Other Female Surgeries/Procedures: UTI Social & Family History - Family History Family Medical History: Noncontributory Cardiac: Reports: Heart Failure Respiratory: Reports: None GI: Reports: Other (See Below) Other GI Family History: chrones OBGYN: Reports: None Musculoskeletal: Reports: None Neurological: Reports: None Psychiatric: Reports: None Endocrine/Metabolic: Reports: None Hematologic: Reports: None Immunologic: Reports: None Oncologic: Reports: None - Tobacco Use Smoking Status *Q: Never Smoker - Caffeine Use Caffeine Use: Reports: Coffee, Tea Caffeine Use Comment: Not daily - Recreational Drug Use Recreational Drug Use: No - Living Situation & Occupation Living situation: Reports: , with Family Occupation: Unemployed ED ROS GENERAL - Review of Systems Review Of Systems: See Below Constitutional: Reports: No Symptoms, Chills, Fatigue, Decreased Appetite HEENT: Reports: Rhinitis Respiratory: Reports: Shortness of Breath, Wheezing, Cough Cardiovascular: Reports: No Symptoms. Denies: Chest Pain, Dyspnea on Exertion, Lightheadedness Endocrine: Reports: No Symptoms GI/Abdominal: Reports: Nausea. Denies: Abdominal Pain, Diarrhea, Vomiting : Reports: No Symptoms Musculoskeletal: Reports: Other (generalized body aches) Skin: Reports: No Symptoms. Denies: Rash Neurological: Reports: Headache. Denies: Confusion, Dizziness Psychiatric: Reports: No Symptoms Hematologic/Lymphatic: Reports: No Symptoms Immunologic: Reports: No Symptoms ED EXAM, GENERAL - Physical Exam Exam: See Below General Appearance: Alert, WD/WN, No Apparent Distress Eye Exam: Bilateral Eye: Normal Inspection, PERRL Respiratory/Chest: No Respiratory Distress, Lungs Clear, Normal Breath Sounds, No Accessory Muscle Use, Chest Non-Tender Cardiovascular: Normal Peripheral Pulses, Regular Rate, Rhythm, No Edema, No Gallop, No JVD, No Murmur, No Rub GI/Abdominal: Normal Bowel Sounds, Soft, Non-Tender, No Organomegaly, No Distention, No Abnormal Bruit, No Mass Neurological: Alert, Oriented, CN II-XII Intact, Normal Cognition, Normal Gait, Normal Reflexes, No Motor/Sensory Deficits Psychiatric: Normal Affect, Normal Mood Skin Exam: Warm, Dry, Intact, Normal Color, No Rash Course - Vital Signs Last Recorded V/S: Last Vital Signs Temp 97.5 F 01/14/20 20:12 Pulse 88 01/14/20 20:12 Resp 22 H 01/14/20 20:12 BP 135/91 H 01/14/20 20:12 Pulse Ox 100 01/14/20 20:12 - Orders/Labs/Meds Labs: Laboratory Tests 01/14/20 01/14/20 01/14/20 Range/Units 20:25 20:25 20:38 WBC 3.97 L (3.98-10.04) K/mm3 RBC 4.66 (3.98-5.22) M/mm3 Hgb 13.0 D (11.2-15.7) gm/dl Hct 40.6 (34.1-44.9) % MCV 87.1 (79.4-94.8) fl MCH 27.9 (25.6-32.2) pg MCHC 32.0 L (32.2-35.5) g/dl RDW Std Deviation 49.3 H (36.4-46.3) fL Plt Count 369 D (182-369) K/mm3 MPV 8.5 L (9.4-12.3) fl Neut % (Auto) 70.8 (34.0-71.1) % Lymph % (Auto) 17.9 L (19.3-51.7) % Franklin % (Auto) 9.3 (4.7-12.5) % Eos % (Auto) 1.0 (0.7-5.8) Baso % (Auto) 0.5 (0.1-1.2) % Neut # (Auto) 2.81 (1.56-6.13) K/mm3 Lymph # (Auto) 0.71 L (1.18-3.74) K/mm3 Franklin # (Auto) 0.37 H (0.24-0.36) K/mm3 Eos # (Auto) 0.04 (0.04-0.36) K/mm3 Baso # (Auto) 0.02 (0.01-0.08) K/mm3 Sodium 140 (136-145) mEq/L Potassium 3.6 (3.5-5.1) mEq/L Chloride 104 (98-107) mEq/L Carbon Dioxide 28 (21-32) mEq/L Anion Gap 11.6 (5-15) BUN 10 (7-18) mg/dL Creatinine 0.7 (0.55-1.02) mg/dL Est Cr Clr Drug Dosing 93.50 mL/min Estimated GFR (MDRD) > 60 (>60) mL/min BUN/Creatinine Ratio 14.3 (14-18) Glucose 123 H (74-106) mg/dL Calcium 8.8 (8.5-10.1) mg/dL Total Bilirubin 0.3 (0.2-1.0) mg/dL AST 26 (15-37) U/L ALT 33 (14-59) U/L Alkaline Phosphatase 91 (46-116) U/L C-Reactive Protein 4.6 H* (<1.0) mg/dL Total Protein 7.3 (6.4-8.2) g/dl Albumin 2.7 L (3.4-5.0) g/dl Globulin 4.6 gm/dL Albumin/Globulin Ratio 0.6 L (1-2) SARS-CoV-2 (PCR) Not detected (NOT DETECT) Meds: Medications Discontinued Medications Generic Name Dose Route Start Last Admin Trade Name Kavita MCLAUGHLIN Reason Stop Dose Admin Ibuprofen 400 mg 01/14/20 21:09 01/14/20 21:30 Motrin PO 01/14/20 21:10 400 mg ONETIME ONE Administration - Re-Assessments/Exams Free Text/Narrative Re-Assessment/Exam: 01/14/20 21:11 Hematology was grossly unremarkable with exception of a CRP being minimally elevated at 4.6. Chest x-ray was normal and showed no evidence of pneumonia. Discussed results with patient. Recommend that she continue to use albuterol inhaler as needed, however she was not wheezy in the emergency department and her oxygen saturation was 100% on room air. Also discussed that she may use [id number] Tylenol and ibuprofen as needed for body aches and discomfort. She has not taken a dose thus far today, therefore we will give her a dose of ibuprofen before she goes home. Discussed that she should isolate at home until COVID results are available. She will be notified in 24 to 48 hours when these are complete. Discharge instructions as documented. Departure - Departure Time of Disposition: 21:11 Disposition: Home, Self-Care 01 Condition: Good Clinical Impression: Viral respiratory illness - Discharge Information *PRESCRIPTION DRUG MONITORING PROGRAM REVIEWED*: No *COPY OF PRESCRIPTION DRUG MONITORING REPORT IN PATIENT FRIDA: No Instructions: Viral Respiratory Infection, [id number] Referrals: Shanique Kaufman NP [Primary Care Provider] - Forms: ED Department Discharge Additional Instructions: You were seen in the emergency department today for generalized fatigue, cough, body aches, and shortness of breath. Your work-up included blood work, a chest x-ray, and a coronavirus test. Your blood work was found to be overall normal. Your chest x-ray was also normal. There is no evidence of bacterial infection or pneumonia. Your oxygen saturation was 100% on room air which is excellent. Your other vital signs were also normal. The coronavirus test take 24 to 72 hours to be completed. You will be notified when these results are available. In the meantime, I recommend that you isolate at home. Rest and ensure you are taking an adequate amount of fluid. You may use [id number] Tylenol or ibuprofen as needed for body aches. Continue using your albuterol inhaler as needed for shortness of breath or wheezing. If you experience any new or worsening symptoms of concern, please do not hesitate to return to the emergency department. Sepsis Event Note (ED) - Evaluation Sepsis Screening Result: No Definite Risk
[2020-01-14] MEDS ORDERED: Ibuprofen 400 MG Tab PO ONE (21:09)
--- NOTE | 2020-01-15 08:41 | CR ---
Chest: Portable view of the chest was obtained. Comparison: Prior chest x-ray of 08/17/18. Heart size and mediastinum are normal. Lungs are clear with no acute parenchymal change. Bony structures are grossly intact. Impression: 1. Nothing acute is identified on portable chest x-ray. Diagnostic code #1 This report was dictated in MDT
== END 2020-01-14 21:30 | disposition home or self-care (01) ==
LOC: JD.ED 19:38
DX: J98.8 Other specified respiratory disorders (principal); B97.89 Other viral agents as the cause of diseases classified elsewhere; Z88.8 Allergy status to other drugs, medicaments and biological substances; K21.9 Gastro-esophageal reflux disease without esophagitis; Z79.899 Other long term (current) drug therapy; Z20.828 Contact with and (suspected) exposure to other viral communicable diseases; Z91.041 Radiographic dye allergy status; Z91.011 Allergy to milk products
CPT/HCPCS: 36415; 71045; 80053; 85025; 86140; 87635; 99283; A9270; 99282; U0002

== ENCOUNTER 2020-02-20 12:53 | Emergency (ER) | payer MEDICAID ==
[2020-02-20 13:21] VITALS: BP 149/91; PULSE 84
--- NOTE | 2020-02-20 13:56 | EDM.PDOC ---
ED HPI GENERAL MEDICAL PROBLEM - General Chief Complaint: Respiratory Problem Stated Complaint: COVID + Time Seen by Provider: 02/20/20 13:22 Source of Information: Reports: Patient, RN Notes Reviewed History Limitations: Reports: No Limitations - History of Present Illness INITIAL COMMENTS - FREE TEXT/NARRATIVE: Patient is a 57-year-old female who presents to the ED for her COVID-19. Patient states that she was called yesterday, and was told she was positive by the state department. She notes she has been feeling ill since Sunday, and states that she got the illness from some children she watched for a friend of hers on Sunday. Patient states she does have a headache, body aches, hot and cold flashes, sore throat, mild loose stools, nausea, shortness of breath, and a loss of appetite. She states she did not sleep well last night. She took some Tylenol for her fever, along with some DayQuil, this seemed to help the body aches quite a bit. She has been eating multiple small meals throughout the day and taking her medications as prescribed. Her primary care provider is Shanique Kaufman. Her O2 sats on room air 99% at this time. Temperature is 96.7 F, she is not dyspneic, respiratory rate of 20 breaths/min. And her pulse is 84 bpm at this time. Treatments TELLER VAULT: Reports: Other (see below) Other Treatments TELLER VAULT: tyleol Throat Pain Score (Numeric/FACES): 10 Headache Pain Score (Numeric/FACES): 10 Generalized Pain Score (Numeric/FACES): 10 - Related Data Allergies Allergy/AdvReac Type Severity Reaction Status Date / Time adalimumab [From Humira] Allergy Severe Redness Verified 02/20/20 13:21 Iodinated Contrast Media Allergy Severe Rash Verified 02/20/20 13:21 [Iodinated Contrast Media - Oral and] lactose Allergy Severe Anaphylactic Verified 02/20/20 13:21 Shock Home Meds: Home Meds Glucosam/Chondr/Collagn/Hyalur [Glucosamine & Chondroitin Cap] 1 cap PO DAILY 04/26/17 [History] Dexlansoprazole [Dexilant] 60 mg PO DAILY 12/05/18 [History] Folic Acid 2 mg PO DAILY 12/05/18 [History] Albuterol Sulfate [Albuterol Sulfate Hfa] 2 inhalation INH ASDIRECTED PRN 01/14/20 [History] Ibuprofen 400 mg PO Q6H PRN 01/14/20 [History] Methotrexate 2.5 mg PO Q7D 01/14/20 [History] Ustekinumab [Stelara] 90 mg SQ ASDIRECTED 01/14/20 [History] Ondansetron [Zofran ODT] 4 mg PO Q8H PRN #20 tab.dis 02/20/20 [Rx] Past Medical History - Past Health History Medical/Surgical History: Denies Medical/Surgical History HEENT History: Reports: Sinusitis, Other (See Below) Other HEENT History: left eye conjunctivitis, sinus infection, strep throat Cardiovascular History: Reports: None Respiratory History: Reports: None Gastrointestinal History: Reports: Cholelithiasis, GERD, Other (See Below) Other Gastrointestinal History: colitis Genitourinary History: Reports: Renal Calculus, Other (See Below) Other Genitourinary History: dysuria 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: Reports: 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, Other (See Below) Other 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: left 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, heavy menses Musculoskeletal History: Reports: Arthritis, RA Neurological History: Reports: Seizure Psychiatric History: Reports: Depression Endocrine/Metabolic History: Reports: Other (See Below) Other Endocrine/Metabolic History: immunocompromised due to Enbrel injections Hematologic History: Reports: None Immunologic History: Reports: Immunosuppression Other Immunologic History: enbrel use Oncologic (Cancer) History: Reports: None Dermatologic History: Reports: None - Infectious Disease History Infectious Disease History: Reports: Chicken Pox Other Infectious Disease History: COVID + - Past Surgical History Head Surgeries/Procedures: Reports: None GI Surgical History: Reports: Cholecystectomy Female Surgical History: Reports: Other (See Below) Other Female Surgeries/Procedures: UTI Social & Family History - Family History Family Medical History: Noncontributory Cardiac: Reports: Heart Failure Respiratory: Reports: None GI: Reports: Other (See Below) Other GI Family History: chrones OBGYN: Reports: None Musculoskeletal: Reports: None Neurological: Reports: None Psychiatric: Reports: None Endocrine/Metabolic: Reports: None Hematologic: Reports: None Immunologic: Reports: None Oncologic: Reports: None - Tobacco Use Tobacco Use Status *Q: Never Tobacco User - Caffeine Use Caffeine Use: Reports: Tea Caffeine Use Comment: Not daily - Recreational Drug Use Recreational Drug Use: No - Living Situation & Occupation Living situation: Reports: , with Family Occupation: Unemployed ED ROS GENERAL - Review of Systems Review Of Systems: Comprehensive ROS is negative, except as noted in HPI. ED EXAM, GENERAL - Physical Exam Exam: See Below Exam Limited By: No Limitations General Appearance: Alert, WD/WN, No Apparent Distress Respiratory/Chest: No Respiratory Distress, Lungs Clear, Normal Breath Sounds, No Accessory Muscle Use, Chest Non-Tender Cardiovascular: Normal Peripheral Pulses, Regular Rate, Rhythm, No Murmur Peripheral Pulses: 2+: Radial (L), Radial (R) GI/Abdominal: Normal Bowel Sounds, Soft, Non-Tender, No Distention, No Mass Extremities: Normal Inspection, Normal Capillary Refill Neurological: Alert, Oriented, Normal Cognition, No Motor/Sensory Deficits Psychiatric: Normal Affect, Normal Mood Skin Exam: Warm, Dry, Intact, Normal Color, No Rash Course - Vital Signs Last Recorded V/S: Last Vital Signs Temp 96.7 F L 02/20/20 13:20 Pulse 84 02/20/20 13:20 Resp 20 02/20/20 13:20 BP 149/91 H 02/20/20 13:20 Pulse Ox 99 02/20/20 13:20 - Orders/Labs/Meds Orders: Active Orders 24 hr Category Date Time Status Chest 1V Frontal [CR] Stat Exams 02/20/20 13:49 Ordered - Re-Assessments/Exams Free Text/Narrative Re-Assessment/Exam: 02/20/20 13:54 Patient presents to the ED for evaluation of her COVID-19 symptoms. For today's purposes we will obtain a baseline chest x-ray, give the patient some nausea medications for outpatient management and have her quarantine at this time. I did go over causes to return to the ER, the patient did verbalize understanding at this time. 02/20/20 14:21 x-ray does not demonstrate any focal infiltrate at this time, this was reviewed by myself and Dr. Baker, official radiology read does confirm this. Departure - Departure Time of Disposition: 13:56 Disposition: Home, Self-Care 01 Condition: Good Clinical Impression: COVID-19 - Discharge Information *PRESCRIPTION DRUG MONITORING PROGRAM REVIEWED*: No *COPY OF PRESCRIPTION DRUG MONITORING REPORT IN PATIENT FRIDA: No Prescriptions: Ondansetron [Zofran ODT] 4 mg PO Q8H PRN #20 tab.dis PRN Reason: Nausea Instructions: COVID-19 Frequently Asked Questions, COVID-19: How to Protect Yourself and Others - CDC, Prevent the Spread of COVID-19 if You Are Sick - [facility] Referrals: Shanique Kaufman [employer]ACH[employer] [Primary Care Provider] - Forms: ED Department Discharge Additional Instructions: You were seen in the ER today for ongoing and/or worsening respiratory symptoms. Your chest x-ray showed no signs of pneumonia at this time. Your oxygen levels were great at 99% on room air. We ask that you self-quarantine and limit your exposure to others. Please coordinate the length of your quarantine with the state dept. or the [place] dept of health. Please try to increase your oral fluid intake, and eat multiple small meals throughout the day, to keep yourself healthy. You need to keep yourself nourished in order to fight off this disease. You can try a liquid diet like gatorade/powerade as well to get your electrolytes. You may take 500 mg Tylenol every hours 6 hours for pain/fever relief. Do not exceed 4000 mg Tylenol in a 24-hour time span. However, running a fever is your body's natural response to illness, and it allows the body to develop antibodies to disease, we are recommending trying to limit the use of Tylenol as much as possible to allow your body's natural immune response. Recommend that you obtain a pulse oximeter and monitor your oxygen levels at home, you should place the monitor on your finger, and sit in a calm, quiet position for a few minutes and then record the number that is on the screen. If this consistently below 90% on room air without movement, this would be cause for concern to come back to the hospital for further management of your COVID-19 disease. Sepsis Event Note (ED) - Evaluation Sepsis Screening Result: No Definite Risk - Focused Exam Vital Signs: Vital Signs Temp Pulse Resp BP Pulse Ox 02/20/20 13:20 96.7 F L 84 20 149/91 H 99 - My Orders Last 24 Hours: My Active Orders 02/20/20 13:49 Chest 1V Frontal [CR] Stat - Assessment/Plan Last 24 Hours: My Active Orders 02/20/20 13:49 Chest 1V Frontal [CR] Stat
== END 2020-02-20 14:50 | disposition home or self-care (01) ==
LOC: SUPCPDRO 12:53 → JD.ED 12:53
DX: U07.1 COVID-19 (principal); K21.9 Gastro-esophageal reflux disease without esophagitis; Z91.041 Radiographic dye allergy status; Z88.8 Allergy status to other drugs, medicaments and biological substances; Z90.49 Acquired absence of other specified parts of digestive tract; Z79.899 Other long term (current) drug therapy
CPT/HCPCS: 71045; 99283; 99284-25

== ENCOUNTER 2020-03-18 09:43 | Emergency (ER) | payer MEDICAID ==
[2020-03-18 10:06] VITALS: BP 141/98; PULSE 96
[2020-03-18] MEDS ORDERED: HYDROmorphone 1 MG/ML Syringe IM ONE (10:33)
--- NOTE | 2020-03-18 10:52 | EDM.PDOC ---
ED HPI GENERAL MEDICAL PROBLEM - General Chief Complaint: General Stated Complaint: MULTIPLE ISSUES Time Seen by Provider: 03/18/20 10:07 Source of Information: Reports: Patient History Limitations: Reports: No Limitations - History of Present Illness INITIAL COMMENTS - FREE TEXT/NARRATIVE: The patient presents with left hand and left leg pain. She has a history of rheumatoid arthritis and she feels she is having a flair. 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 She denies any recent injuries. Onset: Gradual Duration: Day(s): Location: Reports: Upper Extremity, Left (hand), Lower Extremity, Left (leg) Quality: Reports: Sharp Severity: Moderate Improves with: Reports: None Worsens with: Reports: None Associated Symptoms: Reports: No Other Symptoms Left Hand Pain Score (Numeric/FACES): 10 - Related Data Allergies Allergy/AdvReac Type Severity Reaction Status Date / Time adalimumab [From Humira] Allergy Severe Redness Verified 03/18/20 10:06 Iodinated Contrast Media Allergy Severe Rash Verified 03/18/20 10:06 [Iodinated Contrast Media - Oral and] lactose Allergy Severe Anaphylactic Verified 03/18/20 10:06 Shock Home Meds: Home Meds Glucosam/Chondr/Collagn/Hyalur [Glucosamine & Chondroitin Cap] 1 cap PO DAILY 04/26/17 [History] Dexlansoprazole [Dexilant] 60 mg PO DAILY 12/05/18 [History] Folic Acid 2 mg PO DAILY 12/05/18 [History] Albuterol Sulfate [Albuterol Sulfate Hfa] 2 inhalation INH ASDIRECTED PRN 01/13 [History] Ibuprofen 400 mg PO Q6H PRN 01/14/20 [History] Methotrexate 17.5 mg PO Q7D 01/14/20 [History] Ustekinumab [Stelara] 90 mg SQ ASDIRECTED 01/14/20 [History] Ondansetron [Zofran ODT] 4 mg PO Q8H PRN #20 tab.dis 02/20/20 [Rx] dexAMETHasone [Dexamethasone] 6 mg PO DAILY 5 Days #5 tab 02/20/20 [Rx] predniSONE [Prednisone] 20 mg PO DAILY #10 tablet 03/18/20 [Rx] Past Medical History - Past Health History Medical/Surgical History: Denies Medical/Surgical History HEENT History: Reports: Sinusitis, Other (See Below) Other HEENT History: left eye conjunctivitis, sinus infection, strep throat Cardiovascular History: Reports: None Respiratory History: Reports: None Gastrointestinal History: Reports: Cholelithiasis, GERD, Other (See Below) Other Gastrointestinal History: colitis Genitourinary History: Reports: Renal Calculus, UTI, Recurrent, Other (See Below) Other Genitourinary History: dysuria 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: Reports: 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, Other (See Below) 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: left 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, heavy menses Musculoskeletal History: Reports: Arthritis, RA Neurological History: Reports: Seizure Psychiatric History: Reports: Depression Endocrine/Metabolic History: Reports: Other (See Below) Other Endocrine/Metabolic History: immunocompromised due to Enbrel injections Hematologic History: Reports: None Immunologic History: Reports: Immunosuppression Other Immunologic History: enbrel use Oncologic (Cancer) History: Reports: None Dermatologic History: Reports: None - Infectious Disease History Infectious Disease History: Reports: Chicken Pox Other Infectious Disease History: COVID + - Past Surgical History GI Surgical History: Reports: Cholecystectomy Social & Family History - Family History Family Medical History: No Pertinent Family History Cardiac: Reports: Heart Failure Respiratory: Reports: None GI: Reports: Other (See Below) Other GI Family History: chrones OBGYN: Reports: None Musculoskeletal: Reports: None Neurological: Reports: None Psychiatric: Reports: None Endocrine/Metabolic: Reports: None Hematologic: Reports: None Immunologic: Reports: None Oncologic: Reports: None - Tobacco Use Tobacco Use Status *Q: Never Tobacco User - Caffeine Use Caffeine Use: Reports: Soda Caffeine Use Comment: Not daily - Recreational Drug Use Recreational Drug Use: No - Living Situation & Occupation Living situation: Reports: , with Family Occupation: Unemployed ED ROS GENERAL - Review of Systems Review Of Systems: See Below Constitutional: Reports: No Symptoms HEENT: Reports: No Symptoms Respiratory: Reports: No Symptoms Cardiovascular: Reports: No Symptoms Endocrine: Reports: No Symptoms GI/Abdominal: Reports: No Symptoms : Reports: No Symptoms Musculoskeletal: Reports: Other (Left hand pain and left leg pain) ED EXAM, GENERAL - Physical Exam Exam: See Below Exam Limited By: No Limitations General Appearance: Alert, No Apparent Distress Ears: Normal External Exam Nose: Normal Inspection Head: Atraumatic, Normocephalic Neck: Normal Inspection Respiratory/Chest: No Respiratory Distress, Lungs Clear, Normal Breath Sounds Cardiovascular: Regular Rate, Rhythm, No Edema, No Murmur GI/Abdominal: Soft, Non-Tender, No Organomegaly, No Mass Extremities: Other (Swelling of the MCP joints in the left hand with pain upon palpation. Pain upon palpation to her left knee. Good sensation and pulses distally.) Course - Vital Signs Last Recorded V/S: Last Vital Signs Temp 97.3 F 03/18/20 10:03 Pulse 96 03/18/20 10:03 Resp 16 03/18/20 10:03 BP 141/98 H 03/18/20 10:03 Pulse Ox 98 03/18/20 10:03 - Orders/Labs/Meds Meds: Medications Discontinued Medications Generic Name Dose Route Start Last Admin Trade Name Kavita PRN Reason Stop Dose Admin Hydromorphone HCl 1 mg 03/18/20 10:33 03/18/20 10:40 Dilaudid IM 03/18/20 10:34 1 mg ONETIME ONE Administration - Re-Assessments/Exams Free Text/Narrative Re-Assessment/Exam: 03/18/20 10:50 I ordered a shot of dilaudid and I will get her on some prednisone. Departure - Departure Time of Disposition: 10:50 Disposition: Home, Self-Care 01 Condition: Good Clinical Impression: Rheumatoid arthritis flare - Discharge Information *PRESCRIPTION DRUG MONITORING PROGRAM REVIEWED*: Not Applicable *COPY OF PRESCRIPTION DRUG MONITORING REPORT IN PATIENT FRIDA: Not Applicable Prescriptions: predniSONE [Prednisone] 20 mg PO DAILY #10 tablet Referrals: Shanique Kaufman NP [Primary Care Provider] - Additional Instructions: Take your medications as prescribed. Take the prednisone 20mg daily. Follow up with your doctor and tool grinding machine operator. Please return if you are worse. Sepsis Event Note (ED) - Evaluation Sepsis Screening Result: No Definite Risk - Focused Exam Vital Signs: Vital Signs Temp Pulse Resp BP Pulse Ox 03/18/20 10:03 97.3 F 96 16 141/98 H 98
== END 2020-03-18 11:00 | disposition home or self-care (01) ==
LOC: JD.ED 09:43
DX: M06.9 Rheumatoid arthritis, unspecified (principal); K21.9 Gastro-esophageal reflux disease without esophagitis; Z88.8 Allergy status to other drugs, medicaments and biological substances; Z91.041 Radiographic dye allergy status; Z91.011 Allergy to milk products
CPT/HCPCS: 96372; 99283; J1170

== ENCOUNTER 2020-05-05 19:19 | Emergency (ER) | payer MEDICAID ==
[2020-05-05 19:39] VITALS: BP 153/68; PULSE 65
[2020-05-05] MEDS ORDERED: Sodium Chloride 0.9% 10 ML Syringe FLUSH PRN (19:52)
[2020-05-05] MEDS ORDERED: Sodium Chloride 0.9% 1,000 ML IV STA (19:59)
--- NOTE | 2020-05-05 20:40 | EDM.PDOC ---
ED HPI GENERAL MEDICAL PROBLEM - General Chief Complaint: Abdominal Pain Stated Complaint: BLOOD IN STOOL NAUSEA Time Seen by Provider: 05/05/20 19:28 Source of Information: Reports: Patient, RN Notes Reviewed History Limitations: Reports: No Limitations - History of Present Illness INITIAL COMMENTS - FREE TEXT/NARRATIVE: Patient is a 49-year-old female presenting to the emergency department with complaints of noticing specks of blood in her stool. She states at 1 point she did also's pass a small blood clot. She complains of rectal pain. She has a history of hemorrhoids in the past and states she did have bleeding associated with these as well. She also has a history of Crohn's disease and is currently off of her DMARD. Her last colonoscopy was over 2 years ago. She has some mild generalized abdominal tenderness as well as nausea. She is had no vomiting. States she did take Zofran at home and has been able to keep down fluids. She denies any fever or chills. States that she feels "weak ". Patient states that she normally follows a strict low-fat diet, however over the holiday states that she has been eating a lot more "junk ". Feels this may be the cause of her discomfort and nausea. She also has vaginal bleeding which is likely her period. She is perimenopausal, therefore her periods are quite irregular. Denies any significant pelvic pain. States she is scheduled to have hysterectomy in the near future. Her primary care provider is Adriana Kaufman NP. States that she sees a GI specialist for her Crohn's and a manager digital ad operations for her RA. Abdomen Pain Score (Numeric/FACES): 10 - Related Data Allergies Allergy/AdvReac Type Severity Reaction Status Date / Time adalimumab [From Humira] Allergy Severe Redness Verified 03/18/20 10:06 Iodinated Contrast Media Allergy Severe Rash Verified 03/18/20 10:06 [Iodinated Contrast Media - Oral and] lactose Allergy Severe Anaphylactic Verified 03/18/20 10:06 Shock Home Meds: Home Meds Glucosam/Chondr/Collagn/Hyalur [Glucosamine & Chondroitin Cap] 1 cap PO DAILY 04/26/17 [History] Dexlansoprazole [Dexilant] 60 mg PO DAILY 12/05/18 [History] Folic Acid 2 mg PO DAILY 12/05/18 [History] Albuterol Sulfate [Albuterol Sulfate Hfa] 2 inhalation INH ASDIRECTED PRN 01/14/20 [History] Ibuprofen 400 mg PO Q6H PRN 01/14/20 [History] Ondansetron [Zofran ODT] 4 mg PO Q8H PRN #20 tab.dis 02/20/20 [Rx] Fluticasone Propionate [Flonase] 16 gm .XX DAILY #1 bottle 05/05/20 [Rx] Past Medical History - Past Health History Medical/Surgical History: Denies Medical/Surgical History HEENT History: Reports: Sinusitis, Other (See Below) Other HEENT History: left eye conjunctivitis, sinus infection, strep throat Cardiovascular History: Reports: None Respiratory History: Reports: None Gastrointestinal History: Reports: Cholelithiasis, GERD, Other (See Below) Other Gastrointestinal History: colitis Genitourinary History: Reports: Renal Calculus, UTI, Recurrent, Other (See Below) Other Genitourinary History: dysuria [employer] History: Reports: 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, Other (See Below) Other [employer] History: left 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, heavy menses Musculoskeletal History: Reports: Arthritis, RA Neurological History: Reports: Seizure Psychiatric History: Reports: Depression Endocrine/Metabolic History: Reports: Other (See Below) Other Endocrine/Metabolic History: immunocompromised due to Enbrel injections Hematologic History: Reports: None Immunologic History: Reports: Immunosuppression Other Immunologic History: enbrel use Oncologic (Cancer) History: Reports: None Dermatologic History: Reports: None - Infectious Disease History Infectious Disease History: Reports: Chicken Pox Other Infectious Disease History: COVID + - Past Surgical History Head Surgeries/Procedures: Reports: None Cardiovascular Surgical History: Reports: None Respiratory Surgical History: Reports: None GI Surgical History: Reports: Cholecystectomy Female Surgical History: Reports: Other (See Below) Other Female Surgeries/Procedures: UTI Endocrine Surgical History: Reports: None Musculoskeletal Surgical History: Reports: None Oncologic Surgical History: Reports: None Dermatological Surgical History: Reports: None Social & Family History - Family History Family Medical History: No Pertinent Family History Cardiac: Reports: Heart Failure Respiratory: Reports: None GI: Reports: Other (See Below) Other GI Family History: chrones OBGYN: Reports: None Musculoskeletal: Reports: None Neurological: Reports: None Psychiatric: Reports: None Endocrine/Metabolic: Reports: None Hematologic: Reports: None Immunologic: Reports: None Oncologic: Reports: None - Tobacco Use Tobacco Use Status *Q: Never Tobacco User - Caffeine Use Caffeine Use: Reports: Coffee, Tea Caffeine Use Comment: Not daily - Recreational Drug Use Recreational Drug Use: No - Living Situation & Occupation Living situation: Reports: , with Family Occupation: Unemployed ED ROS GENERAL - Review of Systems Review Of Systems: See Below Constitutional: Reports: Weakness, Decreased Appetite. Denies: Fever, Chills HEENT: Reports: No Symptoms Respiratory: Reports: No Symptoms Cardiovascular: Reports: No Symptoms. Denies: Chest Pain, Lightheadedness Endocrine: Reports: No Symptoms GI/Abdominal: Reports: Abdominal Pain, Bloody Stool, Diarrhea, Nausea. Denies: Vomiting : Reports: Irregular Menses Musculoskeletal: Reports: No Symptoms Skin: Reports: No Symptoms Neurological: Reports: No Symptoms Psychiatric: Reports: No Symptoms Hematologic/Lymphatic: Reports: No Symptoms Immunologic: Reports: No Symptoms ED EXAM, GI/ABD - Physical Exam Exam: See Below General Appearance: Alert, WD/WN, No Apparent Distress Ears: Normal External Exam, Normal Canal, Hearing Grossly Normal, Normal TMs Head: Atraumatic, Normocephalic, Sinus Tenderness Respiratory/Chest: No Respiratory Distress, Lungs Clear, Normal Breath Sounds, No Accessory Muscle Use, Chest Non-Tender Cardiovascular: Normal Peripheral Pulses, Regular Rate, Rhythm, No Edema, No Gallop, No JVD, No Murmur, No Rub GI/Abdominal Exam: Normal Bowel Sounds, Soft, No Organomegaly, No Distention, No Abnormal Bruit, No Mass, Pelvis Stable, Tender (Mild generalized throughout) Rectal (Female) Exam: Normal Exam, Normal Rectal Tone, Heme + Stool, Tenderness. No: Black Stool, Bloody Stool Neurological: Alert, Oriented, CN II-XII Intact, Normal Cognition, Normal Gait, Normal Reflexes, No Motor/Sensory Deficits Psychiatric: Normal Affect, Normal Mood Skin Exam: Warm, Dry, Intact, Normal Color, No Rash Course - Vital Signs Last Recorded V/S: Last Vital Signs Temp 97.6 F 05/05/20 19:36 Pulse 65 05/05/20 19:36 Resp 20 05/05/20 19:36 BP 153/68 H 05/05/20 19:36 Pulse Ox 96 05/05/20 19:36 Orthostatic Blood Pressure [ 169/104 Standing] Orthostatic Blood Pressure [ 168/88 Sitting] Orthostatic Blood Pressure [ 158/86 Supine] - Orders/Labs/Meds Orders: Active Orders 24 hr Category Date Time Status Orthostatic Vital Signs [RC] ASDIRECTED Care 05/05/20 19:56 Active Peripheral IV Care [RC] . DIRECTED Care 05/05/20 19:52 Active CULTURE URINE [RM] Stat Lab 05/05/20 20:51 Ordered Sodium Chloride 0.9% [Normal Saline] 1,000 ml Med 05/05/20 19:59 Active IV NOW Sodium Chloride 0.9% [Saline Flush] Med 05/05/20 19:52 Active 10 ml FLUSH ASDIRECTED PRN Peripheral IV Insertion Adult [OM.PC] Stat Oth 05/05/20 19:52 Ordered Medication Orders Sodium Chloride (Normal Saline) 1,000 mls @ 999 mls/hr IV NOW STA Stop: 05/05/20 20:59 Last Admin: 05/05/20 20:15 Dose: 999 mls/hr Documented by: BLADE Sodium Chloride (Saline Flush) 10 ml FLUSH ASDIRECTED PRN PRN Reason: Keep Vein Open Last Admin: 05/05/20 20:20 Dose: 10 ml Documented by: BLADE Labs: Laboratory Tests 05/05/20 05/05/20 05/05/20 Range/Units 20:14 20:14 20:14 WBC 5.68 (3.98-10.04) K/mm3 RBC 4.93 (3.98-5.22) M/mm3 Hgb 13.6 (11.2-15.7) gm/dl Hct 42.4 (34.1-44.9) % MCV 86.0 (79.4-94.8) fl MCH 27.6 (25.6-32.2) pg MCHC 32.1 L (32.2-35.5) g/dl RDW Std Deviation 47.0 H (36.4-46.3) fL Plt Count 346 (182-369) K/mm3 MPV 9.0 L (9.4-12.3) fl Neut % (Auto) 75.1 H (34.0-71.1) % Lymph % (Auto) 16.5 L (19.3-51.7) % Alcorn % (Auto) 7.4 (4.7-12.5) % Eos % (Auto) 0.4 L (0.7-5.8) Baso % (Auto) 0.4 (0.1-1.2) % Neut # (Auto) 4.27 (1.56-6.13) K/mm3 Lymph # (Auto) 0.94 L (1.18-3.74) K/mm3 Alcorn # (Auto) 0.42 H (0.24-0.36) K/mm3 Eos # (Auto) 0.02 L (0.04-0.36) K/mm3 Baso # (Auto) 0.02 (0.01-0.08) K/mm3 Sodium 140 (136-145) mEq/L Potassium 3.8 (3.5-5.1) mEq/L Chloride 104 (98-107) mEq/L Carbon Dioxide 28 (21-32) mEq/L Anion Gap 11.8 (5-15) BUN 9 (7-18) mg/dL Creatinine 0.8 (0.55-1.02) mg/dL Est Cr Clr Drug Dosing 81.81 mL/min Estimated GFR (MDRD) > 60 (>60) mL/min BUN/Creatinine Ratio 11.3 L (14-18) Glucose 98 (74-106) mg/dL Calcium 9.6 (8.5-10.1) mg/dL Magnesium 2.1 (1.8-2.4) mg/dl Total Bilirubin 0.3 (0.2-1.0) mg/dL AST 14 L (15-37) U/L ALT 17 (14-59) U/L Alkaline Phosphatase 81 (46-116) U/L C-Reactive Protein 2.6 H* (<1.0) mg/dL Total Protein 7.9 (6.4-8.2) g/dl Albumin 3.1 L (3.4-5.0) g/dl Globulin 4.8 gm/dL Albumin/Globulin Ratio 0.7 L (1-2) Urine Color (Yellow) Urine Appearance (Clear) Urine pH (5.0-8.0) Ur Specific [place] (1.005-1.030) Urine Protein (Negative) Urine Glucose (UA) (Negative) Urine Ketones (Negative) Urine Occult Blood (Negative) Urine Nitrite (Negative) Urine Bilirubin (Negative) Urine Urobilinogen (0.2-1.0) Ur Leukocyte Esterase (Negative) Urine RBC (0-5) /hpf Urine WBC (0-5) /hpf Ur Squamous Epith Cells (0-5) /hpf Urine Bacteria (FEW) /hpf Urine Mucus (FEW) /hpf 05/05/ Range/Units 20:17 WBC (3.98-10.04) K/mm3 RBC (3.98-5.22) M/mm3 Hgb (11.2-15.7) gm/dl Hct (34.1-44.9) % MCV (79.4-94.8) fl MCH (25.6-32.2) pg MCHC (32.2-35.5) g/dl RDW Std Deviation (36.4-46.3) fL Plt Count (182-369) K/mm3 MPV (9.4-12.3) fl Neut % (Auto) (34.0-71.1) % Lymph % (Auto) (19.3-51.7) % Alcorn % (Auto) (4.7-12.5) % Eos % (Auto) (0.7-5.8) Baso % (Auto) (0.1-1.2) % Neut # (Auto) (1.56-6.13) K/mm3 Lymph # (Auto) (1.18-3.74) K/mm3 Alcorn # (Auto) (0.24-0.36) K/mm3 Eos # (Auto) (0.04-0.36) K/mm3 Baso # (Auto) (0.01-0.08) K/mm3 Sodium (136-145) mEq/L Potassium (3.5-5.1) mEq/L Chloride (98-107) mEq/L Carbon Dioxide (21-32) mEq/L Anion Gap (5-15) BUN (7-18) mg/dL Creatinine (0.55-1.02) mg/dL Est Cr Clr Drug Dosing mL/min Estimated GFR (MDRD) (>60) mL/min BUN/Creatinine Ratio (14-18) Glucose (74-106) mg/dL Calcium (8.5-10.1) mg/dL Magnesium (1.8-2.4) mg/dl Total Bilirubin (0.2-1.0) mg/dL AST (15-37) U/L ALT (14-59) U/L Alkaline Phosphatase (46-116) U/L C-Reactive Protein (<1.0) mg/dL Total Protein (6.4-8.2) g/dl Albumin (3.4-5.0) g/dl Globulin gm/dL Albumin/Globulin Ratio (1-2) Urine Color Dark yellow (Yellow) Urine Appearance Cloudy H (Clear) Urine pH 6.0 (5.0-8.0) Ur Specific [place] > or = 1.030 (1.005-1.030) Urine Protein 2+ H (Negative) Urine Glucose (UA) Negative (Negative) Urine Ketones Negative (Negative) Urine Occult Blood 3+ H (Negative) Urine Nitrite Negative (Negative) Urine Bilirubin 1+ H (Negative) Urine Urobilinogen 0.2 (0.2-1.0) Ur Leukocyte Esterase Trace H (Negative) Urine RBC >100 H (0-5) /hpf Urine WBC 10-20 H (0-5) /hpf Ur Squamous Epith Cells 5-10 H (0-5) /hpf Urine Bacteria Few (FEW) /hpf Urine Mucus Not seen (FEW) /hpf Meds: Medications Generic Name Dose Route Start Last Admin Trade Name Freq PRN Reason Stop Dose Admin Sodium Chloride 1,000 mls @ 999 mls/hr 05/05/20 19:59 05/05/20 20:15 Normal Saline IV 05/05/20 20:59 999 mls/hr NOW STA Administration Sodium Chloride 10 ml 05/05/20 19:52 05/05/20 20:20 Saline Flush FLUSH 10 ml ASDIRECTED PRN Administration Keep Vein Open Discontinued Medications Generic Name Dose Route Start Last Admin Trade Name Freq PRN Reason Stop Dose Admin Ketorolac Tromethamine 30 mg 05/05/20 20:42 Toradol IVPUSH 05/05/20 20:43 ONETIME ONE - Re-Assessments/Exams Free Text/Narrative Re-Assessment/Exam: 05/05/20 20:56 Hematology is grossly unremarkable. Urinalysis significant for 3+ occult blood, trace leukocyte esterase, greater than 100 RBCs, 10-20 WBCs, and 5-10 squamous epithelial cells. Blood in her urine is likely due to her vaginal bleeding. She is not orthostatic. Hemoglobin is normal at 13.6. Rectal exam was performed. She is quite tender to the rectum and there is a palpable internal hemorrhoid. There was no obvious blood, however Hemoccult was positive. Discussed results with patient. She is now complaining of a sinus headache. States she is had sinus congestion and nasal pressure for the last 5 days. I will give her Toradol 30 mg IV. Recommend Flonase nasal spray. I will send a prescription for this. Discussed that she should call her GI specialist tomorrow to discuss her symptoms. If her sinus pressure does not improve by early next week, she should follow-up in the clinic for possible bacterial sinusitis. Discharge instructions as documented. Departure - Departure Time of Disposition: 20:56 Disposition: Home, Self-Care 01 Condition: Good Clinical Impression: Rectal pain, Rectal bleeding, Nausea, Sinus headache - Discharge Information *PRESCRIPTION DRUG MONITORING PROGRAM REVIEWED*: No *COPY OF PRESCRIPTION DRUG MONITORING REPORT IN PATIENT FRIDA: No Prescriptions: Fluticasone Propionate [Flonase] 16 gm .XX DAILY #1 bottle Referrals: Shanique Kaufman NP [Primary Care Provider] - Forms: ED Department Discharge Additional Instructions: You were seen in the emergency department today for concerns of rectal bleeding, nausea, vaginal bleeding, and sinus headache. Blood work was completed and found to be overall normal. Hemoglobin is normal indicating that you are not losing a significant amount of blood. Urinalysis has been sent for culture to rule out infection. You received a liter of IV fluids in the ER as well as Toradol for your headache. A prescription for Flonase has been sent to [facility]. Use this as prescribed for your sinus pressure. You may use [id number] Tylenol or ibuprofen as needed for pain. Recommend contacting your GI specialist tomorrow to discuss your symptoms with regards to your Crohn's disease. Follow-up with your primary care provider early next week to reevaluate your sinus pressure as well as rectal bleeding. Return to ER as needed. Sepsis Event Note (ED) - Evaluation Sepsis Screening Result: No Definite Risk - Focused Exam Vital Signs: Vital Signs Temp Pulse Resp BP Pulse Ox 05/05/20 19:36 97.6 F 65 20 153/68 H 96 - My Orders Last 24 Hours: My Active Orders 05/05/20 19:52 Peripheral IV Care [RC] . DIRECTED Sodium Chloride 0.9% [Saline Flush] 10 ml FLUSH ASDIRECTED PRN Peripheral IV Insertion Adult [OM.PC] Stat 05/05/20 19:56 Orthostatic Vital Signs [RC] ASDIRECTED 05/05/20 19:59 Sodium Chloride 0.9% [Normal Saline] 1,000 ml IV NOW 05/05/20 20:51 CULTURE URINE [RM] Stat - Assessment/Plan Last 24 Hours: My Active Orders 05/05/20 19:52 Peripheral IV Care [RC] . DIRECTED Sodium Chloride 0.9% [Saline Flush] 10 ml FLUSH ASDIRECTED PRN Peripheral IV Insertion Adult [OM.PC] Stat 05/05/20 19:56 Orthostatic Vital Signs [RC] ASDIRECTED 05/05/20 19:59 Sodium Chloride 0.9% [Normal Saline] 1,000 ml IV NOW 05/05/20 20:51 CULTURE URINE [RM] Stat
[2020-05-05] MEDS ORDERED: Ketorolac 30 MG/ML SDV IVPUSH ONE (20:42)
== END 2020-05-05 21:15 | disposition home or self-care (01) ==
LOC: JD.ED 19:19
DX: K62.5 Hemorrhage of anus and rectum (principal); R51.9 Headache, unspecified; R11.0 Nausea; K21.9 Gastro-esophageal reflux disease without esophagitis; Z88.8 Allergy status to other drugs, medicaments and biological substances; Z91.041 Radiographic dye allergy status; Z91.048 Other nonmedicinal substance allergy status; Z79.899 Other long term (current) drug therapy
CPT/HCPCS: 36415; 80053; 81001; 83735; 85025; 86140; 87086; 96374; 99284; J1885; J7030

== ENCOUNTER 2020-07-07 09:01 | Emergency (ER) | payer MEDICAID ==
[2020-07-07] MEDS ORDERED: Sodium Chloride 0.9% 10 ML Syringe FLUSH PRN (09:24)
[2020-07-07] MEDS ORDERED: diphenhydrAMINE 50 MG/ML SDV IVPUSH ONE (09:26)
[2020-07-07] MEDS ORDERED: Famotidine 20 MG/2 ML SDV IVPUSH ONE (09:27)
--- NOTE | 2020-07-07 09:35 | EDM.PDOC ---
ED HPI GENERAL MEDICAL PROBLEM - General Chief Complaint: Cardiovascular Problem Stated Complaint: ALLERGIC REACTIONS Time Seen by Provider: 07/07/20 09:08 Source of Information: Reports: Patient History Limitations: Reports: No Limitations, Other (Vital signs reveal a temp of 98.5, pulse of 66, respiratory rate of 20, blood pressure 135/95, pulse ox 99% on room air.) - History of Present Illness INITIAL COMMENTS - FREE TEXT/NARRATIVE: 49-year-old female presents to the emergency department with complaints of an allergic reaction. Patient states that she received her first dose of Remicade, and had an EGD, and colonoscopy around May 29. She states that she has had allergic reaction type symptoms since then. She states that yesterday she received her third dose of Remicade and complained of having an allergic reaction so the infusion center did give her Benadryl IV. She states she has not taken any Benadryl since that as she thought 1 IV dose would be enough. She states she woke this morning having palpitations, chest pressure, shortness of breath, and nausea. She denies any diaphoresis, or vomiting however she does admit to being nauseated. Onset: Today, Sudden Chest Pain Score (Numeric/FACES): 10 - Related Data Allergies Allergy/AdvReac Type Severity Reaction Status Date / Time adalimumab [From Humira] Allergy Severe Redness Verified 07/07/20 09:14 Iodinated Contrast Media Allergy Severe Rash Verified 07/07/20 09:14 [Iodinated Contrast Media - Oral and] lactose Allergy Severe Anaphylactic Verified 07/07/20 09:14 Shock Home Meds: Home Meds Glucosam/Chondr/Collagn/Hyalur [Glucosamine & Chondroitin Cap] 1 cap PO DAILY 04/26/17 [History] Dexlansoprazole [Dexilant] 60 mg PO DAILY 12/05/18 [History] Folic Acid 2 mg PO DAILY 12/05/18 [History] Ondansetron [Zofran ODT] 4 mg PO Q8H PRN #20 tab.dis 02/20/20 [Rx] Fluticasone Propionate [Flonase] 16 gm .XX DAILY #1 bottle 05/05/20 [Rx] InFLIXimab [Remicade] 0 mg IV ASDIRECTED 07/07/20 [History] metHOTREXate sodium [Methotrexate] 0 mg PO DAILY 07/07/20 [History] Past Medical History - Past Health History Medical/Surgical History: Denies Medical/Surgical History HEENT History: Reports: Sinusitis, Other (See Below) Other HEENT History: left eye conjunctivitis, sinus infection, strep throat Cardiovascular History: Reports: None Respiratory History: Reports: None Gastrointestinal History: Reports: Cholelithiasis, GERD, Other (See Below) Other Gastrointestinal History: colitis Genitourinary History: Reports: Renal Calculus, UTI, Recurrent, Other (See Below) Other Genitourinary History: dysuria 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: Reports: 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, Other (See Below) Other 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: left 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, heavy menses Musculoskeletal History: Reports: Arthritis, RA Neurological History: Reports: Seizure Psychiatric History: Reports: Depression Endocrine/Metabolic History: Reports: Other (See Below) Other Endocrine/Metabolic History: immunocompromised due to Enbrel injections Hematologic History: Reports: B12 Deficiency Immunologic History: Reports: Immunosuppression Other Immunologic History: enbrel use Oncologic (Cancer) History: Reports: None Dermatologic History: Reports: None - Infectious Disease History Infectious Disease History: Reports: Chicken Pox, Novel Coronavirus Other Infectious Disease History: COVID + - Past Surgical History GI Surgical History: Reports: Cholecystectomy, Colonoscopy, EGD Female Surgical History: Reports: Other (See Below) Other Female Surgeries/Procedures: UTI Social & Family History - Family History Family Medical History: No Pertinent Family History Cardiac: Reports: Heart Failure Respiratory: Reports: None GI: Reports: Other (See Below) Other GI Family History: chrones OBGYN: Reports: None Musculoskeletal: Reports: None Neurological: Reports: None Psychiatric: Reports: None Endocrine/Metabolic: Reports: None Hematologic: Reports: None Immunologic: Reports: None Oncologic: Reports: None - Tobacco Use Tobacco Use Status *Q: Never Tobacco User Second Hand Smoke Exposure: No - Caffeine Use Caffeine Use: Reports: Coffee, Tea Caffeine Use Comment: Not daily - Recreational Drug Use Recreational Drug Use: No - Living Situation & Occupation Living situation: Reports: , with Family Occupation: Unemployed ED ROS GENERAL - Review of Systems Review Of Systems: See Below Constitutional: Reports: No Symptoms. Denies: Fever, Chills, Diaphoresis HEENT: Reports: No Symptoms Respiratory: Reports: Shortness of Breath. Denies: Wheezing, Pleuritic Chest Pain, Cough, Sputum Cardiovascular: Reports: Chest Pain (Pressure), Palpitations (woke with palpitations this morning). Denies: Edema, Lightheadedness Endocrine: Reports: No Symptoms GI/Abdominal: Reports: Abdominal Pain (Left upper quadrant), Nausea. Denies: Constipation, Diarrhea, Vomiting : Reports: No Symptoms Musculoskeletal: Reports: No Symptoms Skin: Reports: Pruritis (Generalized) Neurological: Reports: No Symptoms Psychiatric: Reports: No Symptoms Hematologic/Lymphatic: Reports: No Symptoms Immunologic: Reports: No Symptoms ED EXAM, GENERAL - Physical Exam Exam: See Below Exam Limited By: No Limitations General Appearance: Alert, WD/WN, Anxious Eye Exam: Bilateral Eye: PERRL Ears: Normal External Exam, Hearing Grossly Normal Nose: Normal Inspection Throat/Mouth: Normal Inspection, Normal Lips, Normal Voice, No Airway Compromise Head: Atraumatic, Normocephalic Neck: Normal Inspection, Supple, Non-Tender, Full Range of Motion Respiratory/Chest: No Respiratory Distress, Lungs Clear, Normal Breath Sounds, No Accessory Muscle Use. No: Chest Non-Tender (tender with palpation) Cardiovascular: Normal Peripheral Pulses, Regular Rate, Rhythm, No Edema, No Murmur Peripheral Pulses: 2+: Radial (L), Radial (R) GI/Abdominal: Normal Bowel Sounds, Soft, Non-Tender, No Distention (Female) Exam: Deferred Rectal (Female) Exam: Deferred Extremities: Normal Inspection, Normal Range of Motion, Non-Tender, No Pedal Edema, Normal Capillary Refill Neurological: Alert, Oriented, Normal Cognition Psychiatric: Anxious Skin Exam: Warm, Dry, Intact, Normal Color, No Rash Lymphatic: No Adenopathy #1 Interpretation EKG Date: 07/07/20 Time: 09:35 Rhythm: NSR Rate (Beats/Min): 65 [place]: Normal P-Wave: Present QRS: Normal ST-T: Normal QT: Normal Comparison: No Change EKG Interpretation Comments: Per Dr. Baker interpretation: Sinus rhythm at 65, consider left ventricular hypertrophy, baseline wander in leads V3, V4, V5. No change from previous EKG Course - Vital Signs Text/Narrative:: 49-year-old female who presents with complaints of palpitations, midsternal chest pressure, shortness of breath, left upper quadrant abdominal pain, and nausea. Patient states that on May 29 she had an EGD and colonoscopy and received her first dose of Remicade. She states since that date she has been having an allergic type reaction. She received her third dose of Remicade yesterday and states she had an allergic reaction at that time and the infusion center gave her a dose of IV Benadryl. She felt better and went home and did not take any more doses of Benadryl and woke this morning with heart palpitations, chest pressure, shortness of breath, nausea and left upper quadrant abdominal pain. Patient is extremely anxious at this time as well. Patient is not diaphoretic. Her lung sounds are clear to all turcios. She does have tenderness to her right and left lower quadrant however she states this is due to to having her period. I have ordered labs, an EKG, chest x-ray, Benadryl and Pepcid. These medications should cm off the histamine response associated if she is truly having an allergic type reaction. Last Recorded V/S: Last Vital Signs Temp 98.5 F 07/07/20 09:05 Pulse 66 07/07/20 09:05 Resp 20 07/07/20 09:05 BP 135/95 H 07/07/20 09:05 Pulse Ox 99 07/07/20 09:05 - Orders/Labs/Meds Orders: Active Orders 24 hr Category Date Time Status EKG Documentation Completion [RC] STAT Care 07/07/20 09:21 Active Sodium Chloride 0.9% [Saline Flush] Med 07/07/20 09:24 Active 10 ml FLUSH ASDIRECTED PRN Saline Lock Insert [OM.PC] Stat Oth 07/07/20 09:24 Ordered Medication Orders Sodium Chloride (Saline Flush) 10 ml FLUSH ASDIRECTED PRN PRN Reason: Keep Vein Open Last Admin: 07/07/20 09:40 Dose: 10 ml Documented by: GINA Labs: Laboratory Tests 07/07/20 07/07/20 07/07/20 Range/Units 09:35 09:35 09:35 WBC 5.15 (3.98-10.04) K/mm3 RBC 5.34 H (3.98-5.22) M/mm3 Hgb 14.5 (11.2-15.7) gm/dl Hct 45.0 H (34.1-44.9) % MCV 84.3 (79.4-94.8) fl MCH 27.2 (25.6-32.2) pg MCHC 32.2 (32.2-35.5) g/dl RDW Std Deviation 48.6 H (36.4-46.3) fL Plt Count 353 (182-369) K/mm3 MPV 8.9 L (9.4-12.3) fl Neut % (Auto) 63.0 (34.0-71.1) % Lymph % (Auto) 21.6 (19.3-51.7) % [place] % (Auto) 10.5 (4.7-12.5) % Eos % (Auto) 3.3 (0.7-5.8) Baso % (Auto) 0.8 (0.1-1.2) % Neut # (Auto) 3.25 (1.56-6.13) K/mm3 Lymph # (Auto) 1.11 L (1.18-3.74) K/mm3 [place] # (Auto) 0.54 H (0.24-0.36) K/mm3 Eos # (Auto) 0.17 (0.04-0.36) K/mm3 Baso # (Auto) 0.04 (0.01-0.08) K/mm3 ESR 20 (0-20) mm/hr Sodium 140 (136-145) mEq/L Potassium 4.2 (3.5-5.1) mEq/L Chloride 104 (98-107) mEq/L Carbon Dioxide 28 (21-32) mEq/L Anion Gap 12.2 (5-15) BUN 12 (7-18) mg/dL Creatinine 0.9 (0.55-1.02) mg/dL Est Cr Clr Drug Dosing 72.72 mL/min Estimated GFR (MDRD) > 60 (>60) mL/min BUN/Creatinine Ratio 13.3 L (14-18) Glucose 83 (74-106) mg/dL Calcium 9.0 (8.5-10.1) mg/dL Magnesium 2.0 (1.8-2.4) mg/dl Total Bilirubin 0.4 (0.2-1.0) mg/dL AST 12 L (15-37) U/L ALT 20 (14-59) U/L Alkaline Phosphatase 73 (46-116) U/L Troponin I < 0.017 (0.00-0.056) ng/mL C-Reactive Protein 0.7 (<1.0) mg/dL Total Protein 7.7 (6.4-8.2) g/dl Albumin 3.0 L (3.4-5.0) g/dl Globulin 4.7 gm/dL Albumin/Globulin Ratio 0.6 L (1-2) Urine Color (Yellow) Urine Appearance (Clear) Urine pH (5.0-8.0) Ur Specific [place] (1.005-1.030) Urine Protein (Negative) Urine Glucose (UA) (Negative) Urine Ketones (Negative) Urine Occult Blood (Negative) Urine Nitrite (Negative) Urine Bilirubin (Negative) Urine Urobilinogen (0.2-1.0) Ur Leukocyte Esterase (Negative) Urine RBC (0-5) /hpf Urine WBC (0-5) /hpf Ur Epithelial Cells (0-5) /hpf Urine Bacteria (FEW) /hpf Urine Mucus (FEW) /hpf Urine Yeast (NOT SEEN) Ur Yeast w Hyphae (NOT SEEN) 07/07/20 Range/Units 11:22 WBC (3.98-10.04) K/mm3 RBC (3.98-5.22) M/mm3 Hgb (11.2-15.7) gm/dl Hct (34.1-44.9) % MCV (79.4-94.8) fl MCH (25.6-32.2) pg MCHC (32.2-35.5) g/dl RDW Std Deviation (36.4-46.3) fL Plt Count (182-369) K/mm3 MPV (9.4-12.3) fl Neut % (Auto) (34.0-71.1) % Lymph % (Auto) (19.3-51.7) % [place] % (Auto) (4.7-12.5) % Eos % (Auto) (0.7-5.8) Baso % (Auto) (0.1-1.2) % Neut # (Auto) (1.56-6.13) K/mm3 Lymph # (Auto) (1.18-3.74) K/mm3 [place] # (Auto) (0.24-0.36) K/mm3 Eos # (Auto) (0.04-0.36) K/mm3 Baso # (Auto) (0.01-0.08) K/mm3 ESR (0-20) mm/hr Sodium (136-145) mEq/L Potassium (3.5-5.1) mEq/L Chloride (98-107) mEq/L Carbon Dioxide (21-32) mEq/L Anion Gap (5-15) BUN (7-18) mg/dL Creatinine (0.55-1.02) mg/dL Est Cr Clr Drug Dosing mL/min Estimated GFR (MDRD) (>60) mL/min BUN/Creatinine Ratio (14-18) Glucose (74-106) mg/dL Calcium (8.5-10.1) mg/dL Magnesium (1.8-2.4) mg/dl Total Bilirubin (0.2-1.0) mg/dL AST (15-37) U/L ALT (14-59) U/L Alkaline Phosphatase (46-116) U/L Troponin I (0.00-0.056) ng/mL C-Reactive Protein (<1.0) mg/dL Total Protein (6.4-8.2) g/dl Albumin (3.4-5.0) g/dl Globulin gm/dL Albumin/Globulin Ratio (1-2) Urine Color Red H (Yellow) Urine Appearance Clear (Clear) Urine pH 7.5 (5.0-8.0) Ur Specific [place] 1.020 (1.005-1.030) Urine Protein 2+ H (Negative) Urine Glucose (UA) Negative (Negative) Urine Ketones Negative (Negative) Urine Occult Blood 3+ H (Negative) Urine Nitrite Negative (Negative) Urine Bilirubin Negative (Negative) Urine Urobilinogen 0.2 (0.2-1.0) Ur Leukocyte Esterase Negative (Negative) Urine RBC 5-10 H (0-5) /hpf Urine WBC 0-5 (0-5) /hpf Ur Epithelial Cells 5-10 H (0-5) /hpf Urine Bacteria Moderate H (FEW) /hpf Urine Mucus Few (FEW) /hpf Urine Yeast Rare H (NOT SEEN) Ur Yeast w Hyphae Rare H (NOT SEEN) Meds: Medications Generic Name Dose Route Start Last Admin Trade Name Freq PRN Reason Stop Dose Admin Sodium Chloride 10 ml 07/07/20 09:24 07/07/20 09:40 Saline Flush FLUSH 10 ml ASDIRECTED PRN Administration Keep Vein Open Discontinued Medications Generic Name Dose Route Start Last Admin Trade Name Freq PRN Reason Stop Dose Admin Diphenhydramine HCl 25 mg 07/07/20 09:26 07/07/20 09:35 Benadryl IVPUSH 07/07/20 09:27 25 mg ONETIME ONE Administration Famotidine 20 mg 07/07/20 09:27 07/07/20 09:37 Pepcid IVPUSH 07/07/20 09:28 20 mg ONETIME ONE Administration - Radiology Interpretation Free Text/Narrative:: Radiologist impression portable view of the chest: Nothing acute is appreciated on chest x-ray. - Re-Assessments/Exams Free Text/Narrative Re-Assessment/Exam: 07/07/20 12:05 CBC is unremarkable, chemistries esentially unremarkable, Troponin I <0.017, ESR 20 Urinalysis shows 3+blood and 5-10RBC, however this was a clean catch UA and the patient is currently mensturating. Pt will be discharged to home. She has a scheduled appt with her primary care provider, Barb Kaufman tomorrow. Pt states that she feels much better and no longer feels like she is having an allergic reaction. Will recommend that she take scheduled Benadryl for the next 24 hours. Departure - Departure Time of Disposition: 12:07 Disposition: Home, Self-Care 01 Condition: Good Clinical Impression: Atypical chest pain Allergic reaction Qualifiers: Encounter type: initial encounter Qualified Code(s): T78.40XA - Allergy, unspecified, initial encounter Instructions: Nonspecific Chest Pain, Adult Referrals: Shanique Kaufman NP [Primary Care Provider] - Forms: ED Department Discharge Additional Instructions: You were seen in the emergency department today with complaints of palpitations and chest pressure and complaints of an allergic reaction. Full cardiac workup was completed and this was unremarkable. This included labs, EKG, and chest xray. You were also given Pepcid and Benadry. These mediations help to stop the histamine response associated with an allergic reaction. Recommend that you take benadryl 25mg tab every 6 hours for the next 24 hours. This can cause some drowsiness, be aware. Follow up with Barb Kaufman as you stated you had an appointment tomorrow. Should your condition worsen or change, do not hesitate returning to the emergency department. Sepsis Event Note (ED) - Evaluation Sepsis Screening Result: No Definite Risk - Focused Exam Vital Signs: Vital Signs Temp Pulse Resp BP Pulse Ox 07/07/20 09:05 98.5 F 66 20 135/95 H 99 - My Orders Last 24 Hours: My Active Orders 07/07/20 09:21 EKG Documentation Completion [RC] STAT 07/07/20 09:24 Sodium Chloride 0.9% [Saline Flush] 10 ml FLUSH ASDIRECTED PRN Saline Lock Insert [OM.PC] Stat - Assessment/Plan Last 24 Hours: My Active Orders 07/07/20 09:21 EKG Documentation Completion [RC] STAT 07/07/20 09:24 Sodium Chloride 0.9% [Saline Flush] 10 ml FLUSH ASDIRECTED PRN Saline Lock Insert [OM.PC] Stat
--- NOTE | 2020-07-07 10:19 | CR ---
Chest: Portable view of the chest was obtained. Comparison: Prior chest x-ray of 01/14/20. Heart size and mediastinum are normal. Lungs are clear with no acute parenchymal change. Mild scoliosis is seen within the spine. No acute osseous abnormality is appreciated. Impression: 1. Nothing acute is seen on portable chest x-ray. Diagnostic code #2
[2020-07-07 13:13] VITALS: BP 158/82; PULSE 76
== END 2020-07-07 13:00 | disposition home or self-care (01) ==
LOC: JD.ED 09:01
DX: R00.2 Palpitations (principal); R07.89 Other chest pain; K21.9 Gastro-esophageal reflux disease without esophagitis; Z88.8 Allergy status to other drugs, medicaments and biological substances; Z91.041 Radiographic dye allergy status; Z79.899 Other long term (current) drug therapy; T39.8X5A Adverse effect of other nonopioid analgesics and antipyretics, not elsewhere classified, initial encounter
CPT/HCPCS: 36415; 71045; 71045-26; 80053; 81001; 83735; 84484; 85025; 85652; 86140; 93005; 93010; 96374; 96375; 99284; 99285-25; J1200; J3490

== ENCOUNTER 2020-12-28 06:48 | Day surgery (SDC) | payer MEDICAID ==
[~2020-12-28 06:48] MED LIST changes: -Dexamethasone 4 MG/ML SDV ONE; -HYDROmorphone 1 MG/ML Syringe ONE; -Ketorolac 30 MG/ML SDV ONE; -Lactated Ringers 0 ML ONE; +Lactated Ringers 1,000 ML IV SCH; -Lidocaine 1% 0 ML ONE; +Lidocaine 1%/Sod Bicarbonate in NS 8.4% 1 ML Syringe IDERM PRN; -Lidocaine 1%/Sod Bicarbonate in NS 8.4% 1 ML Syringe IV PRN; -Midazolam 1 MG/ML 2 ML SDV ONE; -Ondansetron 4 MG/2 ML SDV ONE; -Propofol 200 MG/20 ML SDV ONE; -Rocuronium 50 MG/5 ML Vial ONE; -Scopolamine 1.5 MG Transdermal Patch TRDERM SCH; -ceFAZolin 1 GM Vial ONE; -fentaNYL 250 MCG/5 ML SDV ONE
[2020-12-28] MEDS ORDERED: Sodium Chloride 0.9% 50 ML SDV ONE (06:58)
[2020-12-28] MEDS ORDERED: Bupivacaine 0.5% 30 ML SDV ONE (06:58)
[2020-12-28] MEDS ORDERED: Lidocaine 1% with EPINEPHrine 1:100,000 10 ML MDV ONE (06:58)
[2020-12-28] MEDS ORDERED: HYDROmorphone 0.5 MG/0.5 ML Syringe ONE (07:02)
[2020-12-28] MEDS ORDERED: Dexamethasone 4 MG/ML 5 ML MDV ONE (07:02)
[2020-12-28] MEDS ORDERED: Lactated Ringers 1,000 ML ONE (07:02)
[2020-12-28] MEDS ORDERED: Propofol 200 MG/20 ML SDV ONE (07:02)
[2020-12-28] MEDS ORDERED: Ondansetron 4 MG/2 ML SDV ONE (07:02)
[2020-12-28] MEDS ORDERED: Rocuronium 50 MG/5 ML Vial ONE (07:02)
[2020-12-28] MEDS ORDERED: Lidocaine 1% 4 ML ONE (07:02)
[2020-12-28] MEDS ORDERED: fentaNYL 250 MCG/5 ML SDV ONE (07:03)
[2020-12-28] MEDS ORDERED: ceFAZolin 1 GM Vial ONE (07:03)
[2020-12-28] MEDS ORDERED: Midazolam 1 MG/ML 2 ML SDV ONE (07:03)
[2020-12-28] MEDS ORDERED: Ketamine 500 mg/10 ML MDV ONE (07:03)
--- NOTE | 2020-12-28 07:26 | PCM.PREANE ---
Preanesthetic Assessment - Anesthesia/Transfusion/Family Hx Anesthesia History: Prior Anesthesia Without Reaction Family History of Anesthesia Reaction: No Transfusion History: No Prior Transfusion(s) Intubation History: Unknown - Review of Systems General: No Symptoms, Other (RA finished 14 day course of prednisone yesterday) Pulmonary: No Symptoms Cardiovascular: No Symptoms Gastrointestinal: No Symptoms, Other (GERD on meds) Neurological: No Symptoms, Other (walks with cane, due to past ankle injury) Other: Reports: None, Sinus Problem (s/p sinus infection, finished antibx 2 days ago) - Physical Assessment NPO Status Date: 12/27/20 NPO Status Time: 22:00 Weight: 67.6 kg ASA Class: 2 Mental Status: Alert & Oriented x3 Dentition: Reports: Normal Dentition Thyro-Mental Finger Breadths: 3 Mouth Opening Finger Breadths: 3 ROM/Head Extension: Full Lungs: Clear to Auscultation, Normal Respiratory Effort Cardiovascular: Regular Rate, Regular Rhythm - Imaging/EKG Impressions: ekg demonstrates sr with consider LVH - Allergies Allergies/Adverse Reactions: Allergies Allergy/AdvReac Type Severity Reaction Status Date / Time lactose Allergy Severe Anaphylactic Verified 12/27/20 17:40 Shock adalimumab [From Humira] Allergy Intermediate Redness Verified 12/27/20 17:40 Iodinated Contrast Media Allergy Intermediate Rash Verified 12/27/20 17:40 [Iodinated Contrast Media - Oral and] - Blood Blood Available: No Product(s) Available: None - Anesthesia Plan Pre-Op Medication Ordered: None - Acknowledgements Anesthesia Type Planned: General Anesthesia Pt an Appropriate Candidate for the Planned Anesthesia: Yes Alternatives and Risks of Anesthesia Discussed w Pt/Guardian: Yes Pt/Guardian Understands and Agrees with Anesthesia Plan: Yes PreAnesthesia Questionnaire - Past Health History Medical/Surgical History: Denies Medical/Surgical History HEENT History: Reports: Impaired Vision, Sinusitis, Other (See Below) Other HEENT History: left eye conjunctivitis, sinus infection, strep throat Cardiovascular History: Reports: None, Other (See Below) Respiratory History: Reports: None Gastrointestinal History: Reports: Colon Polyp, GERD Other Gastrointestinal History: colitis, abdominal pain Genitourinary History: Reports: Renal Calculus, UTI, Recurrent Other Genitourinary History: dysuria 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 Other OB/BYN History: left 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, heavy menses, pelvic pain, bacteral vaginosis, vaginal itching, retained tampon, vulvar itching, vaginal irritation, urogenital trichomonoasis, vaginal discharge, endometriosis, , laparoscopic surgery with fulguration of endometriosis Musculoskeletal History: Reports: RA Neurological History: Reports: Seizure Psychiatric History: Reports: Anxiety, Depression Endocrine/Metabolic History: Reports: Other (See Below) Other Endocrine/Metabolic History: immunocompromised due to Enbrel injections Hematologic History: Reports: B12 Deficiency Immunologic History: Reports: Immunosuppression Other Immunologic History: enbrel use Oncologic (Cancer) History: Reports: None Dermatologic History: Reports: None - Infectious Disease History Infectious Disease History: Reports: Novel Coronavirus Other Infectious Disease History: COVID + - Past Surgical History Head Surgeries/Procedures: Reports: None HEENT Surgical History: Reports: Oral Surgery Cardiovascular Surgical History: Reports: None Respiratory Surgical History: Reports: None GI Surgical History: Reports: Cholecystectomy, Colonoscopy, EGD Female Surgical History: Endocrine Surgical History: Reports: None Neurological Surgical History: Reports: None Musculoskeletal Surgical History: Reports: None Oncologic Surgical History: Reports: None Dermatological Surgical History: Reports: None - SUBSTANCE USE Tobacco Use Status *Q: Never Tobacco User Recreational Drug Use History: Yes Recreational Drug Type: Reports: Other (see below) - HOME MEDS Home Medications: Home Meds Glucosam/Chondr/Collagn/Hyalur [Glucosamine & Chondroitin Cap] 1 cap PO DAILY 04/26/17 [History] Dexlansoprazole [Dexilant] 60 mg PO DAILY 12/05/18 [History] Folic Acid 2 mg PO DAILY 12/05/18 [History] Multivitamin 1 tab PO DAILY 12/27/20 [History] - CURRENT (IN HOUSE) MEDS Current Meds: Current Medications Lactated Ringer's (Ringers, Lactated) 1,000 mls @ 125 mls/hr IV ASDIRECTED [place] Stop: 12/28/20 23:00 Lidocaine/Sodium Bicarbonate (Lidocaine 1%/Sod Bicarbonate In Ns 8.4% 1 Ml Syringe) 0.25 ml IDERM ONETIME PRN PRN Reason: Prior to IV Start Stop: 12/28/20 23:00 Scopolamine (Scopolamine 1.5 Mg Transdermal Patch) 1.5 mg TRDERM ONETIME ONE Stop: 12/28/20 07:21 Sodium Chloride (Sodium Chloride 0.9% 10 Ml Syringe) 10 ml FLUSH ASDIRECTED PRN PRN Reason: Keep Vein Open Stop: 12/28/20 23:00 Discontinued Medications Bupivacaine HCl (Bupivacaine 0.5% 30 Ml Sdv) Confirm Administered Dose 30 ml .ROUTE .STK-MED ONE Stop: 12/28/20 06:59 Cefazolin Sodium (Cefazolin 1 Gm Vial) Confirm Administered Dose 2 gm .ROUTE .STK-MED ONE Stop: 12/28/20 07:04 Dexamethasone (Dexamethasone 4 Mg/Ml 5 Ml Mdv) Confirm Administered Dose 20 mg .ROUTE .STK-MED ONE Stop: 12/28/20 07:03 Fentanyl (Fentanyl 250 Mcg/5 Ml Sdv) Confirm Administered Dose 250 mcg .ROUTE .STK-MED ONE Stop: 12/28/20 07:04 Hydromorphone HCl (Hydromorphone 0.5 Mg/0.5 Ml Syringe) Confirm Administered Dose 0.5 mg .ROUTE .STK-MED ONE Stop: 12/28/20 07:03 Lactated Ringer's (Ringers, Lactated) 1,000 mls @ 125 mls/hr IV ASDIRECTED [place] Stop: 07/16/20 23:00 Lidocaine HCl (Xylocaine-Mpf 1%) Confirm Administered Dose 4 mls @ as directed .ROUTE .STK-MED ONE Stop: 12/28/20 07:03 Lactated Ringer's (Ringers, Lactated) Confirm Administered Dose 1,000 mls @ as directed .ROUTE .STK-MED ONE Stop: 12/28/20 07:03 Ketamine HCl (Ketamine 500 Mg/10 Ml Mdv) Confirm Administered Dose 500 mg .ROUTE .STK-MED ONE Stop: 12/28/20 07:04 Lidocaine/Epinephrine (Lidocaine 1% With Epinephrine 1:100,000 10 Ml Mdv) Confirm Administered Dose 10 ml .ROUTE .STK-MED ONE Stop: 12/28/20 06:59 Lidocaine/Sodium Bicarbonate (Lidocaine 1%/Sod Bicarbonate In Ns 8.4% 1 Ml Syringe) 0.25 ml IDERM ONETIME PRN PRN Reason: Prior to IV Start Stop: 07/16/20 18:00 Midazolam HCl (Midazolam 1 Mg/Ml 2 Ml Sdv) Confirm Administered Dose 2 mg .ROUTE .STK-MED ONE Stop: 12/28/20 07:04 Ondansetron HCl (Ondansetron 4 Mg/2 Ml Sdv) Confirm Administered Dose 4 mg .ROUTE .STK-MED ONE Stop: 12/28/20 07:03 Propofol (Propofol 200 Mg/20 Ml Sdv) Confirm Administered Dose 200 mg .ROUTE .STK-MED ONE Stop: 12/28/20 07:03 Rocuronium [place] (Rocuronium 50 Mg/5 Ml Vial) Confirm Administered Dose 50 mg .ROUTE .STK-MED ONE Stop: 12/28/20 07:03 Sodium Chloride (Sodium Chloride 0.9% 10 Ml Syringe) 10 ml FLUSH ASDIRECTED PRN PRN Reason: Keep Vein Open Stop: 07/16/20 18:00 Sodium Chloride (Sodium Chloride 0.9% 50 Ml Sdv) Confirm Administered Dose 50 ml .ROUTE .STK-MED ONE Stop: 12/28/20 06:59
[2020-12-28] MEDS ORDERED: Albuterol 0.083% 2.5 MG/3 ML Neb Soln NEB ONE (07:36)
[2020-12-28] MEDS ORDERED: Ketorolac 30 MG/ML SDV ONE (08:15)
[2020-12-28] MEDS ORDERED: Scopolamine 1.5 MG Transdermal Patch TRDERM ONE (08:15)
[2020-12-28] MEDS ORDERED: Ondansetron 4 MG/2 ML SDV IVPUSH PRN ×2 (08:37→08:50)
[2020-12-28] MEDS ORDERED: fentaNYL 100 MCG/2 ML SDV IVPUSH PRN (08:37)
[2020-12-28] MEDS ORDERED: HYDROmorphone 0.5 MG/0.5 ML Syringe IVPUSH PRN (08:38)
[2020-12-28] MEDS ORDERED: Acetaminophen/oxyCODONE 325-5 MG Tab PO PRN (08:50)
--- NOTE | 2020-12-28 08:56 | PCM.OPNOTE ---
- General Post-Op/Procedure Note Date of Surgery/Procedure: 12/28/20 Operative Procedure(s): Total vaginal hysterectomy with bilateral salpingectomy Findings: Uterus is normal size. Patient has a grade 12 cystocele, grade 1 rectocele. The fallopian tubes and ovaries were normal for age. Pre Op Diagnosis: 1. Pelvic pain. 2. History of endometriosis. 3. Abnormal uterine bleeding Post-Op Diagnosis: Same Anesthesia Technique: General ET Tube Other Anesthesia Type: Lidocaine quarter percent with [id number] mLlocal Primary Surgeon: John Gorman Secondary Surgeon: Katja Patino Anesthesia Provider: Malgorzata Ramsey Art Appraiser: Nilam Narayanan Reason Art Appraiser Was Necessary: Retraction, assistance, patient safety, quality of care. Pathology: Uterus and bilateral fallopian tubes in one specimen container. Fluid Replacement, Intraop: 1,000 EBL in mLs: 25 Complications: None Condition: Good Free Text/Narrative:: Surgery duration: 24 minutes Procedure: The patient was placed in supine position on the operating table. General endotracheal anesthesia was accomplished. After positioning, and adequate prep and drape, the procedure was then performed. Sterile speculum was placed in the vagina and cervix was visualized. Cervix was injected with lidocaine quarter percent with epinephrine-20 mL used. A full circumference incision was made in the cervical epithelium. The bladder was pushed well back off cervix. Posterior cul-de-sac was then entered sharply without problems. Left uterosacral was crossclamped with a Enseal vessel closure system. The left uterosacral and then the right uterosacral ligament pedicles were developed using the Enseal system. The anterior cul-de-sac was then entered without problems and the uterine vasculature, cardinal ligament and broad ligament then developed using Enseal vessel closure system. The uterus was inverted at this time and upper broad ligament fallopian tube pedicles were crossclamped with Juvenal clamps. Specimen was totally removed. Both these pedicles were then secured with Enseal vessel closure system. Left and right fallopian tube was normal in appearance.. Using Enseal vessel closure system each of the tubes was then removed and sent with the specimen. The patient was found to be hemostatically intact at this time. Vaginal cuff was sutured for hemostatic reasons with a running locked suture of 0 Monocryl from the 2 o'clock position to the 10 o'clock position posteriorly. Vaginal cuff was then closed from right to left side with a running locked suture of 0 Monocryl. Patient was returned to supine position and awakened from general endotracheal anesthesia. She tolerated the procedure and left the operating room in satisfactory condition.
--- NOTE | 2020-12-28 09:06 | PCM.POSTAN ---
POST ANESTHESIA ASSESSMENT - MENTAL STATUS Mental Status: Alert, Oriented - VITAL SIGNS Vital Signs: Last Vital Signs Temp Pulse Resp BP Pulse Ox 100 12/28/20 07:47 - RESPIRATORY Respiratory Status: Respiratory Rate WNL, Airway Patent, O2 Saturation Stable, Supplemental Oxygen - CARDIOVASCULAR CV Status: Pulse Rate WNL, Blood Pressure Stable - GASTROINTESTINAL GI Status: No Symptoms - PAIN Pain Score: 0 - POST OP HYDRATION Hydration Status: Adequate & Stable
[2020-12-28] MEDS ORDERED: Acetaminophen/oxyCODONE 325-5 MG Tab PO ONE (09:40)
--- NOTE | 2020-12-28 10:59 | PCM48HPAN ---
Post Anesthesia Note - EVALUATION WITHIN 48HRS OF ANESTHETIC Vital Signs in Normal Range: Yes Patient Participated in Evaluation: Yes Respiratory Function Stable: Yes Airway Patent: Yes Cardiovascular Function Stable: Yes Hydration Status Stable: Yes Pain Control Satisfactory: Yes Nausea and Vomiting Control Satisfactory: Yes Mental Status Recovered: Yes Vital Signs: Last Vital Signs Temp 36.9 C 12/28/20 10:36 Pulse 72 12/28/20 10:36 Resp 16 12/28/20 10:36 BP 141/89 H 12/28/20 10:36 Pulse Ox 95 12/28/20 10:36
[2020-12-28 13:58] VITALS: BP 161/100; PULSE 84
[2020-12-28] MEDS ORDERED: Ketorolac 30 MG/ML SDV IVPUSH ONE (14:30)
[2020-12-28] MEDS ORDERED: Ibuprofen 600 MG Tab PO PRN (20:30)
== END 2020-12-28 13:30 | disposition home or self-care (01) ==
LOC: JD.SDS 06:48
PROVIDERS: ATTEND Obstetrics & Gynecology
DX: D25.9 Leiomyoma of uterus, unspecified (principal); N72 Inflammatory disease of cervix uteri; K66.0 Peritoneal adhesions (postprocedural) (postinfection); N81.10 Cystocele, unspecified; N81.6 Rectocele; M06.9 Rheumatoid arthritis, unspecified; Z88.8 Allergy status to other drugs, medicaments and biological substances; Z90.49 Acquired absence of other specified parts of digestive tract; Z98.890 Other specified postprocedural states
CPT/HCPCS: 58262; 87086; 94640; A9270; J0690; J1100; J1170; J1885; J2250; J2405; J2704; J2710; J3010; J7120; 00944; J3490

== ENCOUNTER 2021-02-13 11:46 | Emergency (ER) | payer MEDICAID ==
[2021-02-13 12:51] VITALS: BP 151/96
[2021-02-13 14:19] LABS: CORONAVIRUS COVID-19 NAA NEGATIVE (NEGATIVE)
--- NOTE | 2021-02-13 15:29 | CR ---
Chest: Frontal view of the chest was obtained. Comparison: Prior chest x-ray of 07/28/20. Heart size and mediastinum are within normal limits. Lungs are clear with no acute parenchymal change. Slight scoliosis is noted within the spine. Surgical clips are noted from prior cholecystectomy. Impression: 1. Findings as noted above. 2. Nothing acute is definitely appreciated on frontal chest x-ray. Diagnostic code #2
[2021-02-13] MEDS: Sodium Chloride 0.9% 10 ML Syringe FLUSH PRN ×2 (16:26→17:16)
[2021-02-13] MEDS ORDERED: Iopamidol 755 Mg/ML 100 ML Bottle IVPUSH ONE (16:43)
[2021-02-13] MEDS ORDERED: diphenhydrAMINE 50 MG/ML SDV IVPUSH ONE (16:45)
--- NOTE | 2021-02-13 18:27 | EDM.PDOC ---
ED HPI GENERAL MEDICAL PROBLEM - General Chief Complaint: Respiratory Problem Stated Complaint: LUNG PAIN Time Seen by Provider: 02/13/21 14:47 Source of Information: Reports: Patient History Limitations: Reports: No Limitations - History of Present Illness INITIAL COMMENTS - FREE TEXT/NARRATIVE: The patient presents with a cough and lung pain. This has been going on for a few days. She also has some shortness of breath. She had COVID about 6 months ago and got very sick from it. She has been doing better. Her lungs are not back to 100%. She has been having a cough and lung pain. She has no fever, chills, abdominal pain, nausea, vomiting or diarrhea. Onset: Gradual Duration: Day(s): (3) Location: Reports: Chest Quality: Reports: Ache Severity: Moderate Improves with: Reports: None Worsens with: Reports: None Associated Symptoms: Reports: Chest Pain, Cough, Shortness of Breath. Denies: Fever/Chills, Headaches, Nausea/Vomiting Generalized Pain Score (Numeric/FACES): 8 - Related Data Allergies Allergy/AdvReac Type Severity Reaction Status Date / Time lactose Allergy Severe Anaphylactic Verified 02/13/21 12:51 Shock adalimumab [From Humira] Allergy Intermediate Redness Verified 02/13/21 12:51 Iodinated Contrast Media Allergy Intermediate Rash Verified 02/13/21 12:51 [Iodinated Contrast Media - Oral and] Home Meds: Home Meds Glucosam/Chondr/Collagn/Hyalur [Glucosamine & Chondroitin Cap] 1 cap PO DAILY 04/26/17 [History] Dexlansoprazole [Dexilant] 60 mg PO DAILY 12/05/18 [History] Folic Acid 2 mg PO DAILY 12/05/18 [History] Multivitamin 1 tab PO DAILY 12/27/20 [History] Past Medical History - Past Health History Medical/Surgical History: Denies Medical/Surgical History HEENT History: Reports: Sinusitis, Other (See Below) Other HEENT History: left eye conjunctivitis, sinus infection, strep throat Cardiovascular History: Reports: Other (See Below) Respiratory History: Reports: None Gastrointestinal History: Reports: Colon Polyp, GERD Other Gastrointestinal History: colitis Genitourinary History: Reports: Renal Calculus Other Genitourinary History: dysuria 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: 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 Other STEEL FINISHER History: left 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, heavy menses Musculoskeletal History: Reports: RA Neurological History: Reports: Seizure Psychiatric History: Reports: Anxiety, Depression Endocrine/Metabolic History: Reports: Other (See Below) Other Endocrine/Metabolic History: immunocompromised due to Enbrel injections Hematologic History: Reports: B12 Deficiency Immunologic History: Reports: Immunosuppression Other Immunologic History: enbrel use Oncologic (Cancer) History: Reports: None Dermatologic History: Reports: None - Infectious Disease History Infectious Disease History: Reports: Chicken Pox, Novel Coronavirus Other Infectious Disease History: COVID + - Past Surgical History Head Surgeries/Procedures: Reports: None HEENT Surgical History: Reports: Oral Surgery Cardiovascular Surgical History: Reports: None Respiratory Surgical History: Reports: None GI Surgical History: Reports: Cholecystectomy, Colonoscopy, EGD Female Surgical History: Reports: Other (See Below) Other Female Surgeries/Procedures: UTI Endocrine Surgical History: Reports: None Neurological Surgical History: Reports: None Musculoskeletal Surgical History: Reports: None Oncologic Surgical History: Reports: None Dermatological Surgical History: Reports: None Social & Family History - Family History Family Medical History: No Pertinent Family History Cardiac: Reports: Heart Failure Respiratory: Reports: None GI: Reports: Other (See Below) Other GI Family History: chrones OBGYN: Reports: None Musculoskeletal: Reports: None Neurological: Reports: None Psychiatric: Reports: None Endocrine/Metabolic: Reports: None Hematologic: Reports: None Immunologic: Reports: None Oncologic: Reports: None - Tobacco Use Tobacco Use Status *Q: Never Tobacco User Second Hand Smoke Exposure: No - Caffeine Use Caffeine Use: Reports: Tea Caffeine Use Comment: Not daily - Recreational Drug Use Recreational Drug Use: No - Living Situation & Occupation Living situation: Reports: , with Family (Son) Occupation: Unemployed ED ROS GENERAL - Review of Systems Review Of Systems: See Below Constitutional: Reports: No Symptoms HEENT: Reports: No Symptoms Respiratory: Reports: Shortness of Breath, Cough Cardiovascular: Reports: Chest Pain Endocrine: Reports: No Symptoms GI/Abdominal: Reports: No Symptoms : Reports: No Symptoms Musculoskeletal: Reports: No Symptoms ED EXAM, GENERAL - Physical Exam Exam: See Below Exam Limited By: No Limitations General Appearance: Alert, No Apparent Distress Ears: Normal External Exam Nose: Normal Inspection Head: Atraumatic, Normocephalic Neck: Normal Inspection Respiratory/Chest: No Respiratory Distress, Lungs Clear, Normal Breath Sounds Cardiovascular: Regular Rate, Rhythm, No Edema, No Murmur GI/Abdominal: Soft, Non-Tender, No Organomegaly, No Mass Back Exam: Normal Inspection Extremities: Normal Inspection #1 Interpretation EKG Date: 02/13/21 Time: 15:18 Rhythm: NSR Rate (Beats/Min): 94 [place]: Normal P-Wave: Present QRS: Normal ST-T: Elevated (Normal early repol) QT: Normal Course - Vital Signs Last Recorded V/S: Last Vital Signs Temp 99.0 F 02/13/21 12:50 Pulse 104 H 02/13/21 12:50 Resp 20 02/13/21 12:50 BP 151/96 H 02/13/21 12:50 Pulse Ox 99 02/13/21 12:50 - Orders/Labs/Meds Orders: Active Orders 24 hr Category Date Time Status Cardiac Monitoring [RC] . DIRECTED Care 02/13/21 14:56 Active Peripheral IV Care [RC] . DIRECTED Care 02/13/21 16:08 Active Ang Chest [CT] Stat Exams 02/13/21 16:08 Taken Sodium Chloride 0.9% [Saline Flush] Med 02/13/21 16:08 Active 10 ml FLUSH ASDIRECTED PRN Peripheral IV Insertion Adult [OM.PC] Routine Oth 02/13/21 16:08 Ordered Medication Orders Sodium Chloride (Sodium Chloride 0.9% 10 Ml Syringe) 10 ml FLUSH ASDIRECTED PRN PRN Reason: Keep Vein Open Last Admin: 02/13/21 17:16 Dose: 10 ml Documented by: Admin: 02/13/21 16:26 Dose: 10 ml Documented by: LISS Labs: Laboratory Tests 02/13/21 02/13/21 02/13/21 Range/Units 12:57 15:25 15:25 WBC 6.81 (3.98-10.04) K/mm3 RBC 4.77 (3.98-5.22) M/mm3 Hgb 12.5 (11.2-15.7) gm/dl Hct 39.5 (34.1-44.9) % MCV 82.8 (79.4-94.8) fl MCH 26.2 (25.6-32.2) pg MCHC 31.6 L (32.2-35.5) g/dl RDW Std Deviation 56.5 H (36.4-46.3) fL Plt Count 303 D (182-369) K/mm3 MPV 8.8 L (9.4-12.3) fl Neut % (Auto) 79.8 H (34.0-71.1) % Lymph % (Auto) 10.0 L (19.3-51.7) % Cannon % (Auto) 8.1 (4.7-12.5) % Eos % (Auto) 1.0 (0.7-5.8) Baso % (Auto) 0.1 (0.1-1.2) % Neut # (Auto) 5.43 (1.56-6.13) K/mm3 Lymph # (Auto) 0.68 L (1.18-3.74) K/mm3 Cannon # (Auto) 0.55 H (0.24-0.36) K/mm3 Eos # (Auto) 0.07 (0.04-0.36) K/mm3 Baso # (Auto) 0.01 (0.01-0.08) K/mm3 D-Dimer, Quantitative 3.72 H (0.19-0.50) mg/L Sodium (136-145) mEq/L Potassium (3.5-5.1) mEq/L Chloride (98-107) mEq/L Carbon Dioxide (21-32) mEq/L Anion Gap (5-15) BUN (7-18) mg/dL Creatinine (0.55-1.02) mg/dL Est Cr Clr Drug Dosing mL/min Estimated GFR (MDRD) (>60) mL/min BUN/Creatinine Ratio (14-18) Glucose (70-99) mg/dL Calcium (8.5-10.1) mg/dL Total Bilirubin (0.2-1.0) mg/dL AST (15-37) U/L ALT (14-59) U/L Alkaline Phosphatase (46-116) U/L Troponin I (0.00-0.056) ng/mL Total Protein (6.4-8.2) g/dl Albumin (3.4-5.0) g/dl Globulin gm/dL Albumin/Globulin Ratio (1-2) Influenza Type A RNA Negative (NEGATIVE) Influenza Type B RNA Negative (NEGATIVE) SARS-CoV-2 RNA (THOMAS) Negative (NEGATIVE) 02/13/21 Range/Units 15:25 WBC (3.98-10.04) K/mm3 RBC (3.98-5.22) M/mm3 Hgb (11.2-15.7) gm/dl Hct (34.1-44.9) % MCV (79.4-94.8) fl MCH (25.6-32.2) pg MCHC (32.2-35.5) g/dl RDW Std Deviation (36.4-46.3) fL Plt Count (182-369) K/mm3 MPV (9.4-12.3) fl Neut % (Auto) (34.0-71.1) % Lymph % (Auto) (19.3-51.7) % Cannon % (Auto) (4.7-12.5) % Eos % (Auto) (0.7-5.8) Baso % (Auto) (0.1-1.2) % Neut # (Auto) (1.56-6.13) K/mm3 Lymph # (Auto) (1.18-3.74) K/mm3 Cannon # (Auto) (0.24-0.36) K/mm3 Eos # (Auto) (0.04-0.36) K/mm3 Baso # (Auto) (0.01-0.08) K/mm3 D-Dimer, Quantitative (0.19-0.50) mg/L Sodium 136 (136-145) mEq/L Potassium 3.8 (3.5-5.1) mEq/L Chloride 101 (98-107) mEq/L Carbon Dioxide 26 (21-32) mEq/L Anion Gap 12.8 (5-15) BUN 14 (7-18) mg/dL Creatinine 0.8 (0.55-1.02) mg/dL Est Cr Clr Drug Dosing 80.90 mL/min Estimated GFR (MDRD) > 60 (>60) mL/min BUN/Creatinine Ratio 17.5 (14-18) Glucose 113 H (70-99) mg/dL Calcium 8.9 (8.5-10.1) mg/dL Total Bilirubin 0.6 (0.2-1.0) mg/dL AST 18 (15-37) U/L ALT 20 (14-59) U/L Alkaline Phosphatase 80 (46-116) U/L Troponin I < 0.017 (0.00-0.056) ng/mL Total Protein 7.3 (6.4-8.2) g/dl Albumin 2.9 L (3.4-5.0) g/dl Globulin 4.4 gm/dL Albumin/Globulin Ratio 0.7 L (1-2) Influenza Type A RNA (NEGATIVE) Influenza Type B RNA (NEGATIVE) SARS-CoV-2 RNA (THOMAS) (NEGATIVE) Meds: Medications Generic Name Dose Route Start Last Admin Trade Name Freq PRN Reason Stop Dose Admin Sodium Chloride 10 ml 02/13/21 16:08 02/13/21 17:16 Sodium Chloride 0.9% 10 Ml Syringe FLUSH 10 ml ASDIRECTED PRN Administration Keep Vein Open Discontinued Medications Generic Name Dose Route Start Last Admin Trade Name Freq PRN Reason Stop Dose Admin Diphenhydramine HCl 50 mg 02/13/21 16:45 02/13/21 16:49 Diphenhydramine 50 Mg/Ml Sdv IVPUSH 02/13/21 16:46 50 mg ONETIME ONE Administration Iopamidol 100 ml 02/13/21 16:43 02/13/21 17:16 Iopamidol 755 Mg/Ml 100 Ml Bottle IVPUSH 02/13/21 16:44 100 ml ONETIME ONE Administration - Re-Assessments/Exams Free Text/Narrative Re-Assessment/Exam: 02/13/21 18:25 I ordered an EKG, CXR, labs, COVID 19, and influenza. Her EKG shows a NSR with no acute changes. Her CXR looks good. Her CBC and CMP look good. Her D-dimer was elevated at 3.72. Her troponin is negative. Her influenza and COVID 19 are negative. I ordered an IV saline lock and a CT angio of her chest. 02/13/21 19:[address] no [address] evidence of pulmonary embolism. 19mm noncalcified splenic artery aneurysm. Consider surgical/IR consultation. 5mm noncalcified nodule right lower lobe. She is as low risk no routine follow up is indicated. 02/13/21 19:57 I feel this is post COVID symptoms. I will discharge her home. Departure - Departure Time of Disposition: 20:00 Disposition: Home, Self-Care 01 Condition: Good Clinical Impression: Atypical chest pain, Post covid-19 condition, unspecified, Splenic artery aneurysm, Right lower lobe pulmonary nodule, Thyroid nodule - Discharge Information *PRESCRIPTION DRUG MONITORING PROGRAM REVIEWED*: Not Applicable *COPY OF PRESCRIPTION DRUG MONITORING REPORT IN PATIENT FRIDA: Not Applicable Referrals: Shanique Kaufman NP [Primary Care Provider] - 1 Week Forms: ED Department Discharge Additional Instructions: Take tylenol or motrin as needed for pain. If that does not help take the hydrocodone. Follow up with your provider for the lung pain, splenic artery aneurysm and thyroid nodule. Please return if you are worse. Sepsis Event Note (ED) - Focused Exam Vital Signs: Vital Signs Temp Pulse Resp BP Pulse Ox 02/13/21 12:50 99.0 F 104 H 20 151/96 H 99 - My Orders Last 24 Hours: My Active Orders 02/13/21 14:56 Cardiac Monitoring [RC] . DIRECTED 02/13/21 16:08 Peripheral IV Care [RC] . DIRECTED Ang Chest [CT] Stat Sodium Chloride 0.9% [Saline Flush] 10 ml FLUSH ASDIRECTED PRN Peripheral IV Insertion Adult [OM.PC] Routine - Assessment/Plan Last 24 Hours: My Active Orders 02/13/21 14:56 Cardiac Monitoring [RC] . DIRECTED 02/13/21 16:08 Peripheral IV Care [RC] . DIRECTED Ang Chest [CT] Stat Sodium Chloride 0.9% [Saline Flush] 10 ml FLUSH ASDIRECTED PRN Peripheral IV Insertion Adult [OM.PC] Routine
[2021-02-13 20:59] VITALS: PULSE 91
--- NOTE | 2021-02-14 07:30 | CT ---
CT chest Technique: Multiple axial sections through the chest were obtained. Intravenous contrast was utilized. Study has been performed as a pulmonary angiogram protocol. Comparison: No prior chest CT is available, prior chest x-ray performed on the same day (2:41 PM). Findings: Pulmonary arteries are well opacified. No filling defects are seen to indicate pulmonary embolism. Slight low density nodule is noted within the right lobe of the thyroid gland measuring approximately 2.4 cm. Thoracic aorta shows no aneurysm. No mediastinal or hilar adenopathy is seen. No axillary adenopathy is seen. No pericardial thickening is seen. Enhancing nodule is seen within the proximal splenic artery compatible with a mild aneurysm measuring approximately 1.8 cm. Other portions of the upper abdominal structures are within normal limits. Lung window settings were reviewed. Minimal 5 mm nodule is noted within the right lung base abutting the pleura. No acute parenchymal process is seen. No pleural effusions are noted. Bone window settings were reviewed. No acute osseous abnormality is appreciated. Impression: 1. No findings of pulmonary embolism. 2. 1.8 cm proximal splenic artery aneurysm. 3. 5 mm nodule abutting the pleura within the right lung base. If patient has no history of smoking, this can be ignored. If patient does have history of smoking, repeat noncontrast chest CT study is recommended in one year. 4. No acute parenchymal process is seen. Diagnostic code #3 I agree with preliminary report from [facility], finalized on 02/13/21, 8:26 PM CDT, code 1
== END 2021-02-13 20:15 | disposition home or self-care (01) ==
LOC: JD.ED 11:46
DX: R07.89 Other chest pain (principal); I71.9 Aortic aneurysm of unspecified site, without rupture; R91.1 Solitary pulmonary nodule; Z20.822 Contact with and (suspected) exposure to COVID-19; Z91.011 Allergy to milk products; Z91.041 Radiographic dye allergy status; Z88.8 Allergy status to other drugs, medicaments and biological substances
CPT/HCPCS: 0240U; 36415; 71045; 71275; 80053; 84484; 85025; 85379; 93005; 96374; 99285; J1200; Q9967

== ENCOUNTER 2021-02-20 06:17 | Emergency (ER) | payer MEDICAID ==
--- NOTE | 2021-02-20 07:39 | EDM.PDOC ---
ED HPI GENERAL MEDICAL PROBLEM - General Chief Complaint: Cardiovascular Problem Stated Complaint: [facility] Time Seen by Provider: 02/20/21 07:32 - History of Present Illness INITIAL COMMENTS - FREE TEXT/NARRATIVE: 50-year-old female presents the emergency room brought in by EMS with a complaint of having palpitations last night. Around 11:00 last night the patient took her methylprednisolone as part of the Medrol Dosepak. Patient was put on the Medrol Dosepak for lung pain secondary to the cough. 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 This is not causing any problems at this time. When the patient had the palpitations she had a little bit of chest discomfort with this. At this particular time the patient's says she is doing okay. Abdominal Pain Score (Numeric/FACES): 0 - Related Data Allergies Allergy/AdvReac Type Severity Reaction Status Date / Time lactose Allergy Severe Anaphylactic Verified 02/20/21 06:28 Shock adalimumab [From Humira] Allergy Intermediate Redness Verified 02/20/21 06:28 Iodinated Contrast Media Allergy Intermediate Rash Verified 02/20/21 06:28 [Iodinated Contrast Media - Oral and] Home Meds: Home Meds Glucosam/Chondr/Collagn/Hyalur [Glucosamine & Chondroitin Cap] 1 cap PO DAILY 04/26/17 [History] Dexlansoprazole [Dexilant] 60 mg PO DAILY 12/05/18 [History] Folic Acid 2 mg PO DAILY 12/05/18 [History] Multivitamin 1 tab PO DAILY 12/27/20 [History] Past Medical History - Past Health History Medical/Surgical History: Denies Medical/Surgical History HEENT History: Reports: Sinusitis, Other (See Below) Other HEENT History: left eye conjunctivitis, sinus infection, strep throat Cardiovascular History: Reports: Other (See Below) Respiratory History: Reports: None Gastrointestinal History: Reports: Colon Polyp, GERD Other Gastrointestinal History: colitis Genitourinary History: Reports: Renal Calculus Other Genitourinary History: dysuria 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 RET[employer] INTERN History: Reports: 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 Other MANAGEMENT RETAIL INTERN History: left 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, heavy menses Musculoskeletal History: Reports: RA Neurological History: Reports: Seizure Psychiatric History: Reports: Anxiety, Depression Endocrine/Metabolic History: Reports: Other (See Below) Other Endocrine/Metabolic History: immunocompromised due to Enbrel injections Hematologic History: Reports: B12 Deficiency Immunologic History: Reports: Immunosuppression Other Immunologic History: enbrel use Oncologic (Cancer) History: Reports: None Dermatologic History: Reports: None - Infectious Disease History Infectious Disease History: Reports: Chicken Pox, Novel Coronavirus Other Infectious Disease History: COVID + - Past Surgical History HEENT Surgical History: Reports: Oral Surgery GI Surgical History: Reports: Cholecystectomy, Colonoscopy, EGD Female Surgical History: Reports: Other (See Below) Other Female Surgeries/Procedures: UTI Musculoskeletal Surgical History: Reports: None Social & Family History - Family History Family Medical History: No Pertinent Family History Cardiac: Reports: Heart Failure Respiratory: Reports: None GI: Reports: Other (See Below) Other GI Family History: chrones OBGYN: Reports: None Musculoskeletal: Reports: None Neurological: Reports: None Psychiatric: Reports: None Endocrine/Metabolic: Reports: None Hematologic: Reports: None Immunologic: Reports: None Oncologic: Reports: None - Tobacco Use Tobacco Use Status *Q: Never Tobacco User Second Hand Smoke Exposure: No - Caffeine Use Caffeine Use: Reports: Coffee Caffeine Use Comment: Not daily - Recreational Drug Use Recreational Drug Use: No - Living Situation & Occupation Living situation: Reports: , with Family (Son) Occupation: Unemployed ED ROS GENERAL - Review of Systems Review Of Systems: See Below Constitutional: Reports: No Symptoms HEENT: Reports: No Symptoms Respiratory: Reports: Pleuritic Chest Pain Cardiovascular: Reports: Palpitations. Denies: Chest Pain Endocrine: Reports: No Symptoms GI/Abdominal: Reports: No Symptoms : Reports: No Symptoms Musculoskeletal: Reports: No Symptoms Skin: Reports: No Symptoms ED EXAM, GENERAL - Physical Exam Exam: See Below Exam Limited By: No Limitations General Appearance: Alert, No Apparent Distress Head: Atraumatic, Normocephalic Neck: Normal Inspection, Supple, Non-Tender, Full Range of Motion Respiratory/Chest: No Respiratory Distress, Lungs Clear, Normal Breath Sounds Cardiovascular: Regular Rate, Rhythm, No Edema, No Murmur GI/Abdominal: Normal Bowel Sounds, Soft, Non-Tender #1 Interpretation EKG Date: 02/20/21 Rhythm: NSR Rate (Beats/Min): 68 [place]: Normal P-Wave: Present QRS: Normal ST-T: Other (Early repolarization pattern predominantly inferior) QT: Normal Comparison: No Change (No significant change from an EKG done on 02/13/2021) EKG Interpretation Comments: Abnormal EKG Course - Vital Signs Last Recorded V/S: Last Vital Signs Temp 36.3 C 02/20/21 06:20 Pulse 82 02/20/21 10:07 Resp 20 02/20/21 06:20 BP 149/98 H 02/20/21 10:07 Pulse Ox 95 02/20/21 06:20 - Orders/Labs/Meds Labs: Laboratory Tests 02/20/21 02/20/21 Range/Units 08:01 08:01 WBC 7.70 (3.98-10.04) K/mm3 RBC 4.68 (3.98-5.22) M/mm3 Hgb 12.4 (11.2-15.7) gm/dl Hct 38.7 (34.1-44.9) % MCV 82.7 (79.4-94.8) fl MCH 26.5 (25.6-32.2) pg MCHC 32.0 L (32.2-35.5) g/dl RDW Std Deviation 55.1 H (36.4-46.3) fL Plt Count 370 H (182-369) K/mm3 MPV 8.9 L (9.4-12.3) fl Neut % (Auto) 77.2 H (34.0-71.1) % Lymph % (Auto) 15.3 L (19.3-51.7) % [place] % (Auto) 6.0 (4.7-12.5) % Eos % (Auto) 0.4 L (0.7-5.8) Baso % (Auto) 0.3 (0.1-1.2) % Neut # (Auto) 5.95 (1.56-6.13) K/mm3 Lymph # (Auto) 1.18 (1.18-3.74) K/mm3 [place] # (Auto) 0.46 H (0.24-0.36) K/mm3 Eos # (Auto) 0.03 L (0.04-0.36) K/mm3 Baso # (Auto) 0.02 (0.01-0.08) K/mm3 Sodium 145 (136-145) mEq/L Potassium 3.9 (3.5-5.1) mEq/L Chloride 106 (98-107) mEq/L Carbon Dioxide 31 (21-32) mEq/L Anion Gap 11.9 (5-15) BUN 14 (7-18) mg/dL Creatinine 0.8 (0.55-1.02) mg/dL Est Cr Clr Drug Dosing 80.90 mL/min Estimated GFR (MDRD) > 60 (>60) mL/min BUN/Creatinine Ratio 17.5 (14-18) Glucose 90 (70-99) mg/dL Calcium 8.7 (8.5-10.1) mg/dL Total Bilirubin 0.2 (0.2-1.0) mg/dL AST 12 L (15-37) U/L ALT 21 (14-59) U/L Alkaline Phosphatase 94 (46-116) U/L Troponin I < 0.017 (0.00-0.056) ng/mL Total Protein 7.0 (6.4-8.2) g/dl Albumin 2.9 L (3.4-5.0) g/dl Globulin 4.1 gm/dL Albumin/Globulin Ratio 0.7 L (1-2) Meds: Medications Discontinued Medications Generic Name Dose Route Start Last Admin Trade Name Freq PRN Reason Stop Dose Admin Sucralfate 1 gm 02/20/21 09:47 02/20/21 10:07 Sucralfate 1 Gm Tab PO 02/20/21 09:48 1 gm ONETIME ONE Administration - Re-Assessments/Exams Free Text/Narrative Re-Assessment/Exam: 02/20/21 07:42 Labs and EKG ordered. I did discuss the methylprednisolone with the patient and did recommend that if she is taking it once a day she is best to take it first thing in the morning not late at night. 02/20/21 09:57 Labs look reassuring. The patient's last dose of the methylprednisolone was last night so she does not have to endure that the patient has developed some gastritis and heartburn we will give some Carafate this is probably secondary to the Medrol Dosepak after the Carafate she will use Tums as an outpatient. Anticipate discharge soon. 02/20/21 11:26 She is doing well at this time the Carafate took care of her heartburn and she will use Tums at home if it becomes an issue again. Departure - Departure Time of Disposition: 11:27 Disposition: Home, Self-Care 01 Clinical Impression: Palpitations Referrals: Shanique Kaufman NP [Primary Care Provider] - Forms: ED Department Discharge Additional Instructions: Return to the emergency room with any questions problems or concerning symptoms. Follow-up with your regular healthcare provider for recheck. If the heartburn returns use Tums as needed. In the future if you put on steroids consider taking them first thing in the morning rather than late at night. Sepsis Event Note (ED) - Evaluation Sepsis Screening Result: No Definite Risk - Focused Exam Vital Signs: Vital Signs Temp Pulse Resp BP Pulse Ox 02/20/21 10:07 82 149/98 H 02/20/21 06:20 36.3 C 92 20 182/105 H 95
[2021-02-20] MEDS ORDERED: Sucralfate 1 GM Tab PO ONE (09:47)
[2021-02-20 10:07] VITALS: BP 149/98; PULSE 82
== END 2021-02-20 11:35 | disposition home or self-care (01) ==
LOC: JD.ED 06:17
DX: R00.2 Palpitations (principal); K21.9 Gastro-esophageal reflux disease without esophagitis; R94.31 Abnormal electrocardiogram [ECG] [EKG]; Z91.041 Radiographic dye allergy status; Z91.011 Allergy to milk products; Z88.8 Allergy status to other drugs, medicaments and biological substances; Z79.899 Other long term (current) drug therapy
CPT/HCPCS: 36415; 80053; 84484; 85025; 93005; 99285; A9270

== ENCOUNTER 2022-02-09 13:50 | Emergency (ER) | payer MEDICAID ==
[2022-02-09 16:15] LABS: ESTIMATED GFR 89 mL/min (>60)
[2022-02-15 20:07] VITALS: BP 119/62; PULSE 65
== END 2022-02-09 19:00 | disposition home or self-care (01) ==
LOC: JD.ED 13:50
DX: M25.561 Pain in right knee (principal); Z90.49 Acquired absence of other specified parts of digestive tract; Z90.710 Acquired absence of both cervix and uterus
CPT/HCPCS: 36415; 73564-26-RT; 73564-RT; 80053; 85025; 85379; 93971-26-RT; 93971-RT; 99284

== ENCOUNTER 2022-08-09 17:09 | Observation (INO) | payer MEDICARE, MEDICAID ==
[2022-08-09] MEDS ORDERED: Sodium Chloride 0.9% 10 ML Syringe FLUSH PRN (17:26)
[2022-08-09] MEDS ORDERED: HYDROmorphone 0.5 MG/0.5 ML Syringe IVPUSH ONE (17:52)
[2022-08-09] MEDS ORDERED: Ondansetron 4 MG/2 ML SDV IVPUSH PRN (21:27)
[2022-08-09] MEDS: Acetaminophen 325 MG Tab PO PRN (22:10)
[2022-08-10] MEDS: Acetaminophen 325 MG Tab PO PRN (05:17)
[2022-08-10] MEDS ORDERED: Docusate Sodium 100 MG Cap PO PRN (08:26)
[2022-08-10] MEDS ORDERED: LORazepam 1 MG Tab PO ONE (10:00)
[2022-08-10] MEDS ORDERED: LORazepam 0.5 MG Tab PO PRN (10:01)
[2022-08-10] MEDS: Enoxaparin 40 MG/0.4 ML Syringe SUBCUT SCH (10:35)
[2022-08-10] MEDS: Cholecalciferol (Vitamin D3) 5,000 UNIT Cap PO SCH (13:28)
[2022-08-10] MEDS: Topiramate 25 MG Tab PO SCH ×2 (14:30→20:31)
[2022-08-10] MEDS ORDERED: Mirtazapine 15 MG Tab PO SCH (21:00)
[2022-08-11] MEDS ORDERED: DULoxetine 30 MG Cap PO SCH (09:00)
[2022-08-11] MEDS: Cholecalciferol (Vitamin D3) 5,000 UNIT Cap PO SCH (09:20)
[2022-08-11] MEDS: Topiramate 25 MG Tab PO SCH (09:21)
[2022-08-11] MEDS: Enoxaparin 40 MG/0.4 ML Syringe SUBCUT SCH (09:23)
[2022-08-11 11:50] VITALS: BP 141/97; PULSE 96
== END 2022-08-11 11:18 | disposition home health service (06) ==
LOC: JD.ED 17:09 → JD.MS 19:46
PROVIDERS: ADMIT Emergency Medicine; ATTEND Internal Medicine
DX: R51.9 Headache, unspecified (principal); R29.898 Other symptoms and signs involving the musculoskeletal system; M05.79 Rheumatoid arthritis with rheumatoid factor of multiple sites without organ or systems involvement; N80.9 Endometriosis, unspecified; K21.9 Gastro-esophageal reflux disease without esophagitis; I72.8 Aneurysm of other specified arteries; E04.1 Nontoxic single thyroid nodule; E53.8 Deficiency of other specified B group vitamins; D50.9 Iron deficiency anemia, unspecified; F41.9 Anxiety disorder, unspecified; F32.A Depression, unspecified; Z60.9 Problem related to social environment, unspecified; E55.9 Vitamin D deficiency, unspecified; F12.90 Cannabis use, unspecified, uncomplicated; Z91.011 Allergy to milk products; Z88.8 Allergy status to other drugs, medicaments and biological substances; Z90.49 Acquired absence of other specified parts of digestive tract; Z90.710 Acquired absence of both cervix and uterus; Z87.898 Personal history of other specified conditions; Z79.899 Other long term (current) drug therapy
CPT/HCPCS: 36415; 70450; 70551; 80048; 80053; 82306; 82607; 82746; 82947; 83735; 84484; 85025; 85610; 85730; 86140; 93005; 96374; 97110; 97116; 97162; 99285; A9270; J1170; J1650; J3490; Q3014; 93010; 96372; 99284; G0378

== ENCOUNTER 2023-12-06 11:11 | Emergency (ER) | payer MEDICARE, MEDICAID ==
[2023-12-06 12:17] LABS: BASOPHILS ABSOLUTE AUTO 0.1 K/mm3 (0.0-0.2); BASOPHILS PERCENT AUTO 0.8 % (0.0-1.0); EOSINOPHILS ABSOLUTE AUTO 0.2 K/mm3 (0.0-0.4); EOSINOPHILS PERCENT AUTO 1.9 % (0.0-6.0); HEMATOCRIT 44.7 % (37.0-47.0); HEMOGLOBIN 15.1 gm/dl (12.0-16.0); IMMATURE GRAN PERCENT AUTO 2.1 % (0.0-0.4); LYMPHOCYTES ABSOLUTE AUTO 1.9 K/mm3 (1.0-4.8); MEAN CORPUSCULAR HEMOGLOBIN 29.8 pg (28.0-32.0); MEAN CORPUSCULAR HGB CONC 33.8 g/dl (32.0-36.0); MEAN CORPUSCULAR VOLUME 88.3 fl (83.0-99.0); MEAN PLATELET VOLUME 8.7 fl (9.4-12.3); MONOCYTES ABSOLUTE AUTO 0.5 K/mm3 (0.0-0.8); MONOCYTES PERCENT AUTO 5.6 % (0.0-8.0); NEUTROPHILS ABSOLUTE AUTO 6.8 K/mm3 (1.8-7.7); NEUTROPHILS PERCENT AUTO 69.6 % (41.0-71.0); PLATELET COUNT,PLT 307 K/mm3 (150-400); RED BLOOD CELL COUNT 5.06 M/mm3 (4.10-5.30); WHITE BLOOD CELL COUNT,WBC 9.71 K/mm3 (3.9-11.3)
[2023-12-06 13:10] LABS: A/G RATIO 0.8 (1-2); ALBUMIN 3.3 g/dl (3.4-5.0); ANION GAP 12.4 (5-15); BILIRUBIN TOTAL 0.5 mg/dL (0.2-1.0); BUN/CREATININE RATIO 18.8 (14-18); CALCIUM 9.4 mg/dL (8.5-10.1); CREATININE 0.8 mg/dL (0.55-1.02); EST CRCL DRUG DOSING (CG) 78.18 mL/min; POTASSIUM,K 3.4 mEq/L (3.5-5.1); PROTEIN TOTAL,TP 7.6 g/dl (6.4-8.2)
[2023-12-06 13:42] LABS: CORONAVIRUS COVID-19 NAA NEGATIVE (NEGATIVE); INFLUENZA A NAA NEGATIVE (NEGATIVE); RESPIRATORY SYNCYTIAL VIR NAA NEGATIVE (NEGATIVE)
[2023-12-06 17:32] VITALS: BP 116/84; PULSE 74
== END 2023-12-06 14:44 | disposition home or self-care (01) ==
LOC: JD.ED 11:11
DX: R05.1 Acute cough (principal); K21.9 Gastro-esophageal reflux disease without esophagitis; Z86.16 Personal history of COVID-19; Z90.49 Acquired absence of other specified parts of digestive tract; Z90.710 Acquired absence of both cervix and uterus; Z79.899 Other long term (current) drug therapy; Z79.2 Long term (current) use of antibiotics; Z88.8 Allergy status to other drugs, medicaments and biological substances; Z91.011 Allergy to milk products
CPT/HCPCS: 0241U; 36415; 71045; 80053; 84484; 85025; 93005; 99285; 93010; 99283

== ENCOUNTER 2024-11-03 11:10 | Emergency (ER) | payer MEDICAID, MEDICARE ==
[2024-11-03] MEDS ORDERED: Sodium Chloride 0.9% 10 ML Syringe FLUSH PRN (11:40)
[2024-11-03] MEDS: diphenhydrAMINE 50 MG/ML SDV IVPUSH ONE (11:46)
[2024-11-03 11:48] LABS: BASOPHILS PERCENT AUTO 0.8 % (0.0-1.0); EOSINOPHILS ABSOLUTE AUTO 0.1 K/mm3 (0.0-0.4); EOSINOPHILS PERCENT AUTO 2.6 % (0.0-6.0); HEMATOCRIT 44.5 % (37.0-47.0); HEMOGLOBIN 14.5 gm/dl (12.0-16.0); IMMATURE GRAN ABSOLUTE AUTO 0.05 K/mm3 (0.00-0.05); IMMATURE GRAN PERCENT AUTO 1.3 % (0.0-0.4); LYMPHOCYTES ABSOLUTE AUTO 1.4 K/mm3 (1.0-4.8); LYMPHOCYTES PERCENT AUTO 36.9 % (24.0-44.0); MEAN CORPUSCULAR HEMOGLOBIN 30.3 pg (28.0-32.0); MEAN CORPUSCULAR HGB CONC 32.6 g/dl (32.0-36.0); MEAN CORPUSCULAR VOLUME 92.9 fl (83.0-99.0); MEAN PLATELET VOLUME 8.4 fl (9.4-12.3); MONOCYTES ABSOLUTE AUTO 0.4 K/mm3 (0.0-0.8); MONOCYTES PERCENT AUTO 10.3 % (0.0-8.0); NEUTROPHILS ABSOLUTE AUTO 1.9 K/mm3 (1.8-7.7); NEUTROPHILS PERCENT AUTO 48.1 % (41.0-71.0); PLATELET COUNT,PLT 213 K/mm3 (150-400); RED BLOOD CELL COUNT 4.79 M/mm3 (4.10-5.30)
[2024-11-03 12:05] LABS: INR 0.93; PROTHROMBIN TIME 9.9 SECONDS (9.7-12.0)
[2024-11-03 12:06] LABS: PTT,PARTIAL THROMBOPLSTIN TIME 24.8 SECONDS (21.7-31.4)
[2024-11-03] MEDS: Iopamidol 755 Mg/ML 100 ML Bottle IVPUSH ONE (12:06)
[2024-11-03] MEDS: Sodium Chloride 0.9% 10 ML Syringe FLUSH PRN (12:06)
[2024-11-03] MEDS: Sodium Chloride 0.9% 100 ML IV SCH (12:06)
[2024-11-03 12:15] LABS: A/G RATIO 0.9 (1-2); ALBUMIN 3.2 g/dl (3.4-5.0); ANION GAP 9.6 (5-15); BILIRUBIN TOTAL 0.3 mg/dL (0.2-1.0); BUN/CREATININE RATIO 27.1 (14-18); CREATININE 0.7 mg/dL (0.55-1.02); EST CRCL DRUG DOSING (CG) 88.3 mL/min; POTASSIUM,K 3.6 mEq/L (3.5-5.1); PROTEIN TOTAL,TP 6.6 g/dl (6.4-8.2)
[2024-11-03] MEDS: Sodium Chloride 0.9% 10 ML Syringe FLUSH ONE (16:19)
[2024-11-03] MEDS: Gadobenate Dimeglumine 529 MG/ML 15 ML SDV IVPUSH ONE (16:20)
[2024-11-03 16:49] LABS: APPEARANCE,URINE CLEAR (Clear); BILIRUBIN,URINE NEGATIVE (Negative); COLOR,URINE YELLOW (Yellow); GLUCOSE,URINE NEGATIVE (Negative); KETONES,URINE NEGATIVE (Negative); LEUKOCYTE ESTERASE,URINE NEGATIVE (Negative); NITRITE,URINE NEGATIVE (Negative); OCCULT BLOOD,URINE TRACE-INTACT (Negative); PH,URINE 7.5 (5.0-8.0); PROTEIN,URINE NEGATIVE (Negative); UROBILINOGEN,URINE 0.2 (0.2-1.0)
[2024-11-03 17:29] LABS: BACTERIA,URINE FEW /hpf (FEW); MUCUS,URINE FEW /hpf (FEW); RBC,URINE 0-5 /hpf (0-5); SQUAMOUS EPITHELIAL CELLS,UR 0-5 /hpf (0-5); WBC,URINE 0-5 /hpf (0-5)
[2024-11-03 18:21] VITALS: BP 135/79; PULSE 74
== END 2024-11-03 17:24 | disposition home or self-care (01) ==
LOC: JD.ED 11:10
DX: G45.9 Transient cerebral ischemic attack, unspecified (principal); K21.9 Gastro-esophageal reflux disease without esophagitis; Z86.16 Personal history of COVID-19; Z90.49 Acquired absence of other specified parts of digestive tract; Z90.710 Acquired absence of both cervix and uterus; Z91.011 Allergy to milk products; Z91.041 Radiographic dye allergy status; Z79.899 Other long term (current) drug therapy
CPT/HCPCS: 36415; 70450; 70496; 70498; 70544; 70551; 70552; 80053; 81001; 82947; 84484; 85025; 85610; 85730; 93005; 96374; 99285; A9577; J1200; Q9967; 93010; 99284

== ENCOUNTER 2024-11-05 12:27 | Emergency (ER) | payer MEDICARE, MEDICAID ==
[2024-11-05 12:59] LABS: BASOPHILS ABSOLUTE AUTO 0.0 K/mm3 (0.0-0.2); BASOPHILS PERCENT AUTO 0.9 % (0.0-1.0); EOSINOPHILS ABSOLUTE AUTO 0.1 K/mm3 (0.0-0.4); EOSINOPHILS PERCENT AUTO 2.2 % (0.0-6.0); IMMATURE GRAN ABSOLUTE AUTO 0.09 K/mm3 (0.00-0.05); IMMATURE GRAN PERCENT AUTO 2.0 % (0.0-0.4); LYMPHOCYTES ABSOLUTE AUTO 1.0 K/mm3 (1.0-4.8); LYMPHOCYTES PERCENT AUTO 21.2 % (24.0-44.0); MEAN PLATELET VOLUME 8.7 fl (9.4-12.3); MONOCYTES ABSOLUTE AUTO 0.3 K/mm3 (0.0-0.8); MONOCYTES PERCENT AUTO 6.2 % (0.0-8.0); NEUTROPHILS ABSOLUTE AUTO 3.0 K/mm3 (1.8-7.7); NEUTROPHILS PERCENT AUTO 67.5 % (41.0-71.0); NRBC ABSOLUTE 0.00 (0.00-0.02); NRBC PERCENT 0.0 % (0.0-0.2); PLATELET COUNT,PLT 259 K/mm3 (150-400); RED BLOOD CELL COUNT 5.00 M/mm3 (4.10-5.30); WHITE BLOOD CELL COUNT,WBC 4.49 K/mm3 (3.9-11.3)
[2024-11-05 13:10] LABS: INR 0.95
[2024-11-05 13:11] LABS: PTT,PARTIAL THROMBOPLSTIN TIME 25.1 SECONDS (21.7-31.4)
[2024-11-05 13:22] LABS: A/G RATIO 1.0 (1-2); ALANINE AMINOTRANSFERASE,ALT 37.0 U/L (14-59); ASPARTATE AMNIOTRANSFERASE,AST 18.0 U/L (15-37); BILIRUBIN TOTAL 0.4 mg/dL (0.2-1.0); BLOOD UREA NITROGEN,BUN 22.0 mg/dL (7-18); CARBON DIOXIDE,CO2 27.0 mEq/L (21-32); CHLORIDE,CL 107.0 mEq/L (98-107); CREATININE 0.8 mg/dL (0.55-1.02); EST CRCL DRUG DOSING (CG) 77.27 mL/min; ESTIMATED GFR 87.0 mL/min (>60); GLUCOSE RANDOM 121.0 mg/dL (70-99); POTASSIUM,K 3.9 mEq/L (3.5-5.1); PROTEIN TOTAL,TP 7.1 g/dl (6.4-8.2); SODIUM,NA 142.0 mEq/L (136-145); TROPONIN I HIGH SENSITIVITY 4.0 pg/mL (<=51)
[2024-11-05] MEDS: diphenhydrAMINE 50 MG/ML SDV IVPUSH ONE (13:22)
[2024-11-05] MEDS: Sodium Chloride 0.9% 10 ML Syringe FLUSH ONE (13:38)
[2024-11-05] MEDS: Iopamidol 755 Mg/ML 100 ML Bottle IVPUSH ONE (13:38)
[2024-11-05] MEDS: Ketorolac 30 MG/ML SDV IVPUSH ONE (16:43)
[2024-11-05 16:46] VITALS: BP 126/80; PULSE 77
== END 2024-11-05 16:45 | disposition home or self-care (01) ==
LOC: JD.ED 12:27
DX: R07.89 Other chest pain (principal); R53.81 Other malaise; K21.9 Gastro-esophageal reflux disease without esophagitis; Z91.011 Allergy to milk products; Z91.041 Radiographic dye allergy status; Z88.8 Allergy status to other drugs, medicaments and biological substances; Z79.899 Other long term (current) drug therapy; Z86.16 Personal history of COVID-19; Z90.710 Acquired absence of both cervix and uterus
CPT/HCPCS: 36415; 71045; 71275; 80053; 83735; 83880; 84484; 85025; 85610; 85730; 93005; 96361; 96374; 96375; 99285; J1200; J1885; J7030; Q9967; 93010; 99284

== ENCOUNTER 2025-03-15 13:28 | Emergency (ER) | payer MEDICARE, MEDICAID ==
[2025-03-15 14:54] LABS: BASOPHILS ABSOLUTE AUTO 0.0 K/mm3 (0.0-0.2); BASOPHILS PERCENT AUTO 0.4 % (0.0-1.0); EOSINOPHILS ABSOLUTE AUTO 0.2 K/mm3 (0.0-0.4); EOSINOPHILS PERCENT AUTO 2.2 % (0.0-6.0); IMMATURE GRAN ABSOLUTE AUTO 0.02 K/mm3 (0.00-0.05); IMMATURE GRAN PERCENT AUTO 0.3 % (0.0-0.4); LYMPHOCYTES ABSOLUTE AUTO 0.9 K/mm3 (1.0-4.8); LYMPHOCYTES PERCENT AUTO 12.3 % (24.0-44.0); MEAN PLATELET VOLUME 9.6 fl (9.4-12.3); MONOCYTES ABSOLUTE AUTO 0.5 K/mm3 (0.0-0.8); MONOCYTES PERCENT AUTO 7.3 % (0.0-8.0); NEUTROPHILS ABSOLUTE AUTO 5.7 K/mm3 (1.8-7.7); NEUTROPHILS PERCENT AUTO 77.5 % (41.0-71.0); NRBC ABSOLUTE 0.00 (0.00-0.02); NRBC PERCENT 0.0 % (0.0-0.2); PLATELET COUNT,PLT 209 K/mm3 (150-400); RED BLOOD CELL COUNT 4.78 M/mm3 (4.10-5.30); WHITE BLOOD CELL COUNT,WBC 7.38 K/mm3 (3.9-11.3)
[2025-03-15 15:07] LABS: APPEARANCE,URINE CLEAR (Clear); GLUCOSE,URINE NEGATIVE (Negative); OCCULT BLOOD,URINE TRACE-LYSED (Negative)
[2025-03-15 15:08] LABS: A/G RATIO 1.1 (1-2); ALANINE AMINOTRANSFERASE,ALT 88.0 U/L (14-59); ASPARTATE AMNIOTRANSFERASE,AST 32.0 U/L (15-37); BILIRUBIN TOTAL 0.7 mg/dL (0.2-1.0); BLOOD UREA NITROGEN,BUN 14.0 mg/dL (7-18); CARBON DIOXIDE,CO2 26.0 mEq/L (21-32); CHLORIDE,CL 107.0 mEq/L (98-107); CREATININE 0.8 mg/dL (0.55-1.02); EST CRCL DRUG DOSING (CG) 77.27 mL/min; ESTIMATED GFR 87.0 mL/min (>60); GLUCOSE RANDOM 117.0 mg/dL (70-99); POTASSIUM,K 3.7 mEq/L (3.5-5.1); PROTEIN TOTAL,TP 7.0 g/dl (6.4-8.2); SODIUM,NA 143.0 mEq/L (136-145)
[2025-03-15 17:37] VITALS: BP 133/80; PULSE 88
== END 2025-03-15 17:35 | disposition home or self-care (01) ==
LOC: JD.ED 13:28
DX: R42 Dizziness and giddiness (principal); J32.9 Chronic sinusitis, unspecified; Z91.0110 Allergy to milk products, unspecified; Z91.041 Radiographic dye allergy status; Z79.899 Other long term (current) drug therapy; Z86.16 Personal history of COVID-19
CPT/HCPCS: 36415; 80053; 81001; 85025; 99283; 99284